=== PATIENT | male | born 1940 | race Caucasian/White ===

== ENCOUNTER 2017-08-10 18:56 | Inpatient (IN) | payer OTHER, BC ==
[2017-08-10] MEDS ORDERED: fentaNYL 100 MCG/2 ML INJ IVP ONE ×3 (19:03→22:00)
[2017-08-10] MEDS ORDERED: fentaNYL 100 MCG/2 ML INJ ONE ×2 (19:03→19:26)
--- NOTE | 2017-08-10 19:08 | CPEKG ---
Heart Rate: 85 RR Interval: 706 P-R Interval: 248 QRSD Interval: 126 QT Interval: 392 QTC Interval: 467 P Wilkeson: 72 QRS Wilkeson: -28 T Wave Wilkes[place]: 83 EKG Severity - ABNORMAL ECG - EKG Impression: SINUS RHYTHM EKG Impression: FIRST DEGREE AV BLOCK EKG Impression: PROBABLE LEFT ATRIAL ABNORMALITY EKG Impression: RBBB AND LAFB Electronically Signed By: Miguel Weller 10-Aug-2017 21:25:23
[2017-08-10] MEDS ORDERED: AMIODARONE HCL 150 MG/100 ML BAG (1.5 MG/ML) IV ONE ×2 (19:11→20:16)
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
[2017-08-10] MEDS ORDERED: AMIODARONE HCL 100 ML IV ONE (19:24)
[2017-08-10] MEDS ORDERED: MIDAZOLAM 2 MG/2 ML VIAL ONE (19:26)
[2017-08-10] MEDS ORDERED: LIDOCAINE 1% 300 MG/30 ML SDV ONE (19:26)
[2017-08-10] MEDS ORDERED: IOPAMIDOL (ISOVUE-370) 150 ML BTL IV ONE (19:26)
[2017-08-10] MEDS ORDERED: LORazepam 2 MG/ML INJ IVP ONE (19:32)
[2017-08-10 19:33] LABS: PLATELET COUNT 169 10^3/uL (150-400)
[2017-08-10] MEDS ORDERED: PROPOFOL/EMULSION 1,000 MG/100 ML BOTTLE IV ONE (19:34)
[2017-08-10] MEDS ORDERED: PROPOFOL/EMULSION 50 ML IV ONE (19:35)
[2017-08-10] MEDS ORDERED: VECURONIUM BROMIDE 10 MG VIAL IV ONE (19:35)
[2017-08-10] MEDS ORDERED: VECURONIUM BROMIDE 20 MG VIAL ONE (19:43)
[2017-08-10 19:44] LABS: INR 1.09 (0.83-1.16); PROTIME(PATIENT) 14.3 SEC (12.0-15.0)
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
[2017-08-10] MEDS ORDERED: AMIODARONE A.FIB-6HR INFSN (ORDER 2/3) PREMIX IV ONE (20:30)
[2017-08-10] MEDS ORDERED: PROPOFOL/EMULSION 100 ML IV SCH (20:30)
[2017-08-10] MEDS ORDERED: fentaNYL/NACL 100 ML IV SCH (20:30)
[2017-08-10] MEDS ORDERED: ONDANSETRON 4 MG/2 ML VIAL IVP PRN (21:32)
[2017-08-10] MEDS ORDERED: ATROPINE SULFATE 1 MG/10 ML SYR IVP PRN (21:32)
[2017-08-10] MEDS ORDERED: NS 1,000 ML IV SCH (21:45)
[2017-08-10] MEDS ORDERED: NOREPINEPHRINE 4MG/NS 500 ML IV PRN (22:00)
[2017-08-10] MEDS ORDERED: RN MUST ADD K & MAG PROT TO WORKLIST MISC ONE (22:00)
[2017-08-10] MEDS ORDERED: NS 250 ML IV PRN (22:00)
[2017-08-10] MEDS ORDERED: niCARdipine/NACL 200 ML IV PRN (22:00)
[2017-08-10] MEDS ORDERED: MIDAZOLAM 2 MG/2 ML VIAL IVP PRN (22:00)
[2017-08-10] MEDS ORDERED: NS 1,000 ML IV ONE (22:00)
[2017-08-10] MEDS ORDERED: MIDAZOLAM HCL 50 MG in D5W 50 ML IV PRN (22:00)
[2017-08-10 22:18] LABS: INR 1.1 (0.83-1.16); PROTIME(PATIENT) 14.4 SEC (12.0-15.0)
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
[2017-08-10 22:29] LABS: CREATINE KINASE 742 IU/L (0-224)
[2017-08-10] MEDS: PROPOFOL/EMULSION 100 ML IV SCH (22:30)
[2017-08-10] MEDS: fentaNYL/NACL 100 ML IV SCH (22:30)
[2017-08-10] MEDS: VECURONIUM BROMIDE 50 MG in D5W 50 ML IV SCH (22:31)
[2017-08-10] MEDS ORDERED: ERTAPENEM 1 GM VIAL IV SCH (23:15)
--- NOTE | 2017-08-10 23:36 | GCON ---
[f rep st] CONSULTATION PULMONARY/CRITICAL CARE CONSULTATION DATE OF CONSULTATION: 08/10/2017 REASON FOR CONSULTATION: Pnt-qa-xbxtqhvq cardiac arrest. HISTORY: The patient is a 77-year-old gentleman from [place]. He was in the [facility] region driving when he arrested. Bystander CPR was provided by 2 physicians, by report. The bonnie service arrived with an AED 20-30 minutes later. He was shocked with return of spontaneous circulation. He was transported by chopper to [facility] and taken to the [facility]. He was found to have multivessel coronary disease with a critical left main lesion and occlusion of the LAD. An intra-aortic balloon pump was placed. Ejection fraction was 50%. A HACA catheter was placed and he was returned to the intensive care unit on a ventilator with active cooling. He has been seen by Cardiovascular Surgery. The plan is to see how he does from a neurologic standpoint following the arrest and prolonged CPR. If he does well, then coronary artery bypass grafting will be considered. PAST MEDICAL HISTORY: Somewhat unknown. Hyperlipidemia was noted. He apparently had no history of prior known cardiac disease. MEDICATIONS: His only home medication apparently was a statin. DRUG ALLERGIES: Unknown at this time. SOCIAL HISTORY: , visiting from [place] with his and friends. He smoked cigarettes in the distant past, having quit in his 30s. FAMILY HISTORY: Unobtainable. REVIEW OF SYSTEMS: Unobtainable. PHYSICAL EXAMINATION: GENERAL: Reveals a large gentleman who is in the ICU. He is on the ventilator. An intra-aortic balloon pump has been placed at 1:1. He is actively cooling with a current core temperature of 35. VITAL SIGNS: His blood pressure by ART line is 135/60. He is not on any pressors. CVP is pending. He is on 60% FiO2 with saturations of 98%. Heart rate is 80 with sinus rhythm on the monitor. Occasional ventricular complexes are noted. HEENT : Remarkable for oral endotracheal tube and NG tube. Pupils are small, sluggish. There is some bloody drainage from the NG tube, presumably secondary to traumatic intubation or NG tube placement. CHEST: Reveals decreased breath sounds bilaterally. Breath sounds are coarse. There are no focal findings. HEART: Regular. Heart tones are distant. Intra-aortic balloon pump sounds are present. The anterior chest is somewhat erythematous, presumably secondary to resuscitation. ABDOMEN: Somewhat overweight, appears soft. Tenderness cannot be assessed. Bowel sounds are absent. : Oliva catheter is in place. He is making urine. LINES: There is a femoral ART line and the intra-aortic balloon pump as well as a cooling catheter, all in place. EXTREMITIES: Unremarkable for edema. NEUROLOGIC: Cannot be assessed. He has been paralyzed. LABORATORY STUDIES: Chest x-ray: Hypoventilatory changes are present. The aorta looks large. There are some patchy infiltrates bilaterally, possibly secondary to congestive heart failure. Pneumonitis/aspiration pneumonia cannot be excluded. Cardiac silhouette appears large. Lines and tubes are in appropriate position. White blood cell count is 14,000, hematocrit 48, platelets normal on admission. PT and PTT were normal, D-dimer elevated. The latest blood gas from the ART line shows a pH of 7.27, pCO2 47, and PO2 97 on 60% FiO2, 600 and a rate of 16. Sodium is 141, potassium 4.1, CO2 23, BUN 21 with creatinine 0.8. Glucose is 168. Calcium is 8.5, phosphorus 4.7, magnesium 2.0. Bilirubin is normal. AST is elevated at 114. CK is 742 with a negative CK-MB. Troponin is 1.6. ASSESSMENT: 1. Uia-gb-hadiqpqk cardiac arrest. Status post prolonged bystander cardiopulmonary resuscitation by physicians. Spontaneous circulation was returned with 1 shock. Presumably, this primarily represented an arrhythmic arrest as opposed to large primary myocardial infarction. Ejection fraction was 50% by report without significant focal wall motion abnormalities. 2. Possible anoxic injury. Secondary to #1. He is being treated with the Hypothermia After Cardiac Arrest (HACA) protocol. Mental status will not be able to be assessed until approximately 36 hours after cooling. Rewarming will start at 24 hours. 3. Acute respiratory failure secondary to arrest. Oxygenation on 60% FiO2 is adequate. PCO2 is high and minute ventilation will be increased and arterial blood gas followed. Sputum culture will be obtained. Ertapenem will be given for possible aspiration. 4. Metabolic: No acute issues identified. PLAN AND RECOMMENDATIONS: The patient will be supported in the intensive care unit. HACA protocol will be continued. Intra-aortic balloon pump support will be maintained. Appropriate ventilatory adjustments will be made and blood gas followed. Chest x-ray, blood gas and laboratory will all be followed per the HACA protocol. Paralytics and sedation will be maintained. Called in to see patient after hours. Over 1 hour of CC time spent directly with patient. Further plans and recommendations will be made based on his progress over the next 12-24 hours. Neurologic recovery cannot be estimated at this time. /[id number]/MODL MTDD
[2017-08-10] MEDS: ERTAPENEM 1 GM VIAL IV SCH (23:51)
--- NOTE | 2017-08-11 00:01 | PDDXCAT ---
Diagnostic Cath Note - . Date: 08/10/17 Tack Welder: Carlton Indication: other (Resuscitated ymt-pk-pqcqsbhg cardiac arrest with abnormal ECG in ER.) - Procedure Access: right groin Procedure: left heart catheterization, coronary angiography, left ventriculogram , other (Intra aortic balloon pump insertion and hypothermia catheter insertion. ) - Materials Left Heart Cath size: 6F Left Heart Cath materials: standard multipack (JL4, JR4, pigtail) - Findings-Left Heart Catheterization LM: Distal left main high-grade/subtotal stenosis. LAD: Totally occluded at its ostium and receives dbuxe-fn-nhcc collaterals. LCX: Proximal 70-80%; otherwise moderate irregularities involving principal bifurcated OM branch. RCA: Hazy, proximal, high-grade stenosis; otherwise moderate irregularities. LVEF: 55% Wall motion: No significant regional wall motion abnormalities. Complications: None Estimated blood loss: <50ml Assessment: 1) Status post dde-ok-odryjukl cardiac arrest. 2) Critical left main and multivessel CAD as described above. 3) Preserved left ventricular systolic function. Plan: He has left main and multi-vessel CAD which is not amenable to percutaneous revascularization. He does not appear to be having an ST segment elevation myocardial infarction. His presentation is primarily consistent with a ventricular arrhythmia producing cardiac arrest. He has been hemodynamically stable with intubation and intravenous amiodarone. He does not have any hemodynamic parameters suggestive of shock. Because of the severity of his left main and multivessel CAD, coronary bypass surgery would be the preferred modality for revascularization. However, significant questions remain regarding neurologic viability following his cardiac arrest. Prior to leaving the cardiac catheter builder, an intra-aortic balloon was inserted via the right femoral artery. The IABP is predominantly to enhance coronary perfusion. A hypothermia catheter was inserted into the IVC. Medical management, hemodynamic support, and Targeted Temperature Management will be continued. If his neurologic status improves, he will be considered for coronary bypass surgery. Patient Problems: Problems Problem Status Onset Cardiac arrest Acute
[2017-08-11] MEDS ORDERED: HEPARIN 10,000 UNIT/10 ML MDV (1,000 UNIT/ML) IVP PRN (00:48)
[2017-08-11] MEDS ORDERED: HEPARIN 10,000 UNIT/10 ML MDV (1,000 UNIT/ML) IVP ONE (00:48)
--- NOTE | 2017-08-11 01:09 | CPEKG ---
Heart Rate: 54 RR Interval: 1111 P-R Interval: 232 QRSD Interval: 116 QT Interval: 536 QTC Interval: 509 P Simon: 52 QRS Simon: -14 T Wave Simon: 57 EKG Severity - ABNORMAL ECG - EKG Impression: SINUS RHYTHM EKG Impression: FIRST DEGREE AV BLOCK EKG Impression: INCOMPLETE RIGHT BUNDLE BRANCH BLOCK Electronically Signed By: Bismark Wiseman 11-Aug-2017 11:20:50
[2017-08-11] MEDS: HEPARIN/DEXTROSE 500 ML IV SCH ×2 (01:30→15:24)
[2017-08-11] MEDS: AMIODARONE HCL 200 ML IV SCH ×4 (02:49→20:37)
[2017-08-11] MEDS: VECURONIUM BROMIDE 50 MG in D5W 50 ML IV SCH ×3 (02:49→16:16)
[2017-08-11 04:40] LABS: PLATELET COUNT 147 10^3/uL (150-400)
[2017-08-11] MEDS: PROPOFOL/EMULSION 100 ML IV SCH ×3 (06:09→20:10)
[2017-08-11] MEDS: POTASSIUM Cl (KCl) 50 ML IV SCH ×4 (07:15→18:55)
[2017-08-11] MEDS ORDERED: D5W 1,000 ML IV SCH (07:22)
[2017-08-11] MEDS ORDERED: D50W 25 GM/50 ML SYR IVP PRN (07:22)
[2017-08-11] MEDS: NS 1,000 ML IV SCH ×2 (07:28→21:57)
[2017-08-11] MEDS: PETROLAT,WHT/MIN OIL/SOD CHL 3.5 GM OPHT.OINT EACHEYE PRN ×3 (07:57→21:38)
[2017-08-11] MEDS: INSULIN REGULAR HUMAN 100 UNIT in NS 100 ML IV SCH (08:16)
[2017-08-11] MEDS: NOREPINEPHRINE BITARTRATE 4 MG in NS 500 ML IV PRN ×3 (08:32→23:16)
--- NOTE | 2017-08-11 08:34 | CPEKG ---
Heart Rate: 43 RR Interval: 1395 P-R Interval: 248 QRSD Interval: 126 QT Interval: 592 QTC Interval: 501 P Rydal: 0 QRS Rydal: -3 T Wave Rydal: 85 EKG Severity - ABNORMAL ECG - EKG Impression: SINUS BRADYCARDIA EKG Impression: FIRST DEGREE AV BLOCK EKG Impression: IVCD, CONSIDER ATYPICAL RBBB Electronically Signed By: Bismark Wiseman 11-Aug-2017 11:20:42
[2017-08-11] MEDS ORDERED: METOPROLOL TARTRATE 25 MG TAB PO SCH (09:00)
[2017-08-11] MEDS ORDERED: ASPIRIN EC 325 MG TAB PO SCH (09:00)
[2017-08-11] MEDS ORDERED: RN MUST ADD CA+ & PHOS PROTOCOL TO WORKLIST MISC SCH (09:00)
[2017-08-11] MEDS ORDERED: RN MUST REMOVE K+ & MG+ PROTOCOL FRM WORKLIST MISC SCH (09:00)
[2017-08-11 10:18] LABS: PLATELET COUNT 166 10^3/uL (150-400)
[2017-08-11] MEDS: FAMOTIDINE 20 MG/NACL 50 ML IV SCH ×2 (10:25→20:45)
[2017-08-11 10:27] LABS: INR 1.15 (0.83-1.16); PROTIME(PATIENT) 14.9 SEC (12.0-15.0)
--- NOTE | 2017-08-11 10:32 | HOSPPROG ---
Hospitalist Progress Note Assessment/Plan: Assessment: 77 yo M p/w acute hypoxic and hypercapnic respiratory failure, cardiogenic shock, acute encephalopathy 2/2 vue-oz-dtmkagmn cardiac arrest and Type I NSTEMI Plan: # NSTEMI. Type I, cardiac cath w/ severe MVD (LAD, RCA, LCx) and critical L main disease, trop 4.[address] depressions on presenting EKG, suspect that it resulted in cardiac arrhythmia and resultant cardiac arrest -d/w Dr. Lugo, LDL 65, will start statin, appreciate ongoing Cards consultation -cont w/ hep gtt, rectal ASA -hold on bblocker given bradycardia -with severe MVD, Dr. Chow has been consulted and will have a better impression as to whether CABG indicated after we assess neuro status s/p rewarming # Cardiac arrest. Out of hospital, likely 2/2 ventricular arrhythmia in setting of above, but no specific arrhythmia captured, s/p CPR -currently on HACA, continue, d/w family on team rounds -cont on amio gtt given likely contributing arrhythmia # Acute encephalopathy. Evidenced by global brain dysfunction characterized as unresponsiveness which occurred suddenly, likely 2/2 metabolic acidosis and hypoxia, persisted despite return of circulation, making anoxic brain injury possible -currently on HACA on Vec/Propofol/Fentanyl, once he is rewarmed we will perform neurologic assessments and have a better understanding of prognosis # Metabolic and respiratory acidosis. Acute, 2/2 hypoperfusion in setting of cardiogenic shock as well as carbon dioxide retention w/ pH 7.22 # Cardiogenic shock. Acute, 2/2 arrest, EF 55% but requiring levophed pressor support, intra-aortic balloon pump, albumin # Acute hypoxic and hypercapnic respiratory failure. Evidenced by PCO2 60 and PaO2 47 w/ pH 7.22, w/ respiratory arrest, intubated in the field, and ongoing vent support required # Acute atelectasis. Likely 2/2 prolonged down time, present on CXR, cont positive pressure # Hyperglycemia. No prior dx DM2, on insulin gtt -check A1c Diet. NPO PPx. High risk, on hep gtt Code. Full Dispo. ADD uncertain, remains critically ill. 35 minutes of critical care time at bedside w/ patient/, coordinating care w / Drs. Garcia/Parish, specifically addressing his cardiac arrest and resulting shock/resp failure rendering him critically ill w/ high risk worsening morbidity /mortality. Subjective: unresponsive Objective: Vital Signs Temp Pulse Resp BP Pulse Ox 33.1 C L 40 L 14 121/46 H 40 L 08/11/17 09:00 08/11/17 10:00 08/11/17 10:00 08/11/17 10:00 08/11/17 10:00 Microbiology 08/11/17 01:10 - Final Sputum, Induced/Suctioned Laboratory Results 08/11/17 10:00 08/10/17 08/11/17 08/12/17 05:59 05:59 05:59 Intake Total 2489.3 Output Total 1300 Balance 1189.3 PT 14.9 SEC (12.0-15.0) 08/11/17 10:00 INR 1.15 (0.83-1.16) 08/11/17 10:00 - Physical Exam Constitutional: no apparent distress, not in pain, No uncomfortable Eyes: other (constricted pupils, fixed centrally) Cardiovascular: bradycardia, other (loud IABP over chest and abd), No irregularly irregular, No edema Respiratory: no rales or rhonchi, clear to auscultation, inspiratory crackles, other (on vent) Gastrointestinal: No normoactive bowel sounds (hypoactive bowel sounds), No guarding, No distension Psychiatric: encephalopathic, other (unresponsive to tactile stimuli) ICD10 Worksheet Patient Problems: Problems Problem Status Onset chronic disease [facility]/transitional care Acute Cardiac arrest Acute
[2017-08-11] MEDS ORDERED: ALBUMIN 5% 500 ML IV ONE (10:59)
--- NOTE | 2017-08-11 11:03 | PDMN ---
Medical Necessity Medical necessity: est los>2mn for cardiac arrest w/CPR, AED, and intubation in the field, unresponsive, acute resp failure, possible aspiration event, and critical L main and multivessel CAD; required emergent cath, plan CABG if there is neurological recovery; per order and H&P 08/10/17
[2017-08-11] MEDS ORDERED: ALBUMIN 5% 500 ML BOTTLE IV ONE (11:04)
[2017-08-11] MEDS: fentaNYL/NACL 100 ML IV SCH (11:53)
--- NOTE | 2017-08-11 12:47 | ASMTCASEMG ---
Living Arrangements What is your living Answers: With Spouse arrangement? Who do you live with? Type Of Residence What kind of residence do Answers: House you live in? Type of Residence Facility Name Notes: Patient was visiting from [place]. He and his family were in [place] when patient had a cardiac arrest. He was brought to [facility] post cardiac arrest and HACA protocol was begun. Discharge Plan Comments Coordination Status Comments Notes: Patient is a 77yo male who was helicoptered from [place] to [facility] after a cardiac arrest. Paramedics restored spontaneous respiration with a single automatic external defibrillator. Patient was intubated on route. HACA protocol intiated here at [facility]. Patient is a candidate for coronary bypass surgery if he demonstrates reasonable neurologic salvage. No therapies ordered at this time. D/C plan TBD. CM will follow. Date Signed: 08/11/2017 12:47 PM Electronically Signed By:Collette Tolentino LCSW
--- NOTE | 2017-08-11 13:07 | PDCARPN ---
Cardiology Progress Note Assessment/Plan: Assessment: 1. Kwv-ee-xecicxvw cardiac arrest. 25 min of CPR prior to AED shock. Shock returned palpable pulse. Intubated approximately an hour and 10 min after onset of arrest. Arrived at [facility] approximately 2 hr after onset of the arrest. 2. Severe 3 vessel coronary disease as outlined above. 3. Preserved left ventricular function with LVEF 55% 4. Hoc up protocol and place 5. Intra-aortic balloon pump 1:1 Plan: -continue amiodarone drip -pressors support with Levophed currently at 9mcg/min -continue HACA protocol -continue intra-aortic balloon pump 1:1 -continue maximum medical support into neurologic assessment can be made upon rewarming from HACA protocol -patient would require coronary artery revascularization with CABG, Dr. Kebede is aware of patient and reviewed images -events of the last 24 hr have been reviewed in detail with patient's son. 08/11/17 13:10 Subjective: 77 year old gentleman who had a witnessed, loh-nn-dmruqqkd, ventricular tachycardia arrest at approximately 16 50 last evening. He received approximately 25 min of CPR prior to 80 ED arrival. He received a single shock returning a regular pulse. EMS arrived at approximately 1800. He was intubated on scene and flown to [facility]. He prior to admission, patient had no significant past medical history with exception hyperlipidemia. Medications statin aspirin therapy. Cardiac catheterization performed last evening demonstrated severe 3 vessel coronary disease with subtotal distal left main, occluded LAD at the ostium, 70- 80% proximal stenosis of the circumflex and high-grade proximal stenosis of the right coronary artery. Left ventricular function was preserved with LVEF of 55% . He was started on the HACA protocol. He remains on amiodarone drip. Remains in sinus bradycardia. No ventricular arrhythmias since his arrival to [facility]. Intra-aortic balloon pump at one-to-one. He remains hemodynamically stable. He is on pressor support. CT surgery has been consulted. Patient would require revascularization with CABG if he neurologically recovers. Discussed in detail with patient's son who is at his bedside. Reviewed/Discussed With: family, hospitalist, multidisciplinary team Objective: Vital Signs (8 Hrs) Temp Pulse Resp BP Pulse Ox 08/11/17 11:50 33.1 C L 40 L 14 100 05/04/18 11:00 33.1 C L 40 L 14 115/42 L 100 08/11/17 10:00 40 L 14 121/46 H 40 L 08/11/17 09:00 33.1 C L 42 L 14 107/43 L 100 08/11/17 08:30 33.1 C L 44 L 15 100 08/11/17 08:00 33.1 C L 45 L 14 110/62 100 08/11/17 07:00 33.1 C L 43 L 14 116/42 L 100 08/11/17 06:00 33.1 C L 46 L 14 136/51 H 100 08/11/17 05:30 33.1 C L 47 L 16 132/47 H 100 Intake/Output (24 Hrs) 08/10/17 08/11/17 08/12/17 05:59 05:59 05:59 Intake Total 2489.3 2022 Output Total 1300 750 Balance 1189.3 1272 Intake: Oral (ml) 0 IV Infused (ml) 2489.3 2022 Albumin 5% 500 ml @ As 500 Directed IV ONCE ONE Rx#: [id number] Amiodarone HCl 200 ml @ 310 204 33.3 mls/hr IV CONT GERALD Rx#:[id number] D5w 1,000 ml @ 25 mls/hr 91 IV CONT GERALD Rx#: [id number] Heparin/Dextrose 500 ml @ 161 196 Per Protocol IV CONT GERALD Rx#:[id number] Insulin Regular Human 100 5 unit In Ns 100 ml @ As Directed IV AD GERALD Rx#: [id number] Norepinephrine Bitartrate 346 364 4 mg In Ns 500 ml @ Per Protocol IV CONT PRN Rx#: [id number] Ns 1,000 ml @ 100 mls/hr 900 520 IV CONT GERALD Rx#: [id number] Propofol/Emulsion 100 ml 183 65 @ Per Protocol IV CONT GERALD Rx#:[id number] Vecuronium [place] 50 mg 50 40 In D5w 50 ml @ Per Protocol IV CONT GERALD Rx#: [id number] fentaNYL/NACL 100 ml @ 39.3 37 Per Protocol IV CONT GERALD Rx#:[id number] Output: Urine (ml) 1000 750 Catheter 850 750 Emesis (ml) 200 NG Tube Output (ml) 100 Large Bore (>12 Burmese) 100 Right Naris 16 Burmese Other: Weight 108.5 kg Number of Stools Catheter 1 Result Diagrams: 08/11/17 10:00 08/11/17 10:00 Cardiac Labs: Cardiac Lab Results (72 Hrs) 08/11/17 08/10/17 04:15 21:50 CK-MB (CK-2) Fraction 29.00 H Troponin I 4.700 H 1.640 H - Physical Exam Constitutional: other (Intubated, sedated) Cardiovascular: regular rate and rhythm, no murmurs, no rubs, no gallops Respiratory: clear to auscultate bilat (S) ICD10 Worksheet Patient Problems: Problems Problem Status Onset Cardiac arrest Acute chronic disease mgmt/transitional care Acute
--- NOTE | 2017-08-11 13:15 | PDINTPN ---
Hat Mender Progress Note Assessment/Plan: Assessment: Status post out of hospital cardiac arrest. Secondary to arrhythmia. On amiodarone. HACA protocol. Cooling started at approximately 2100 last night. Coronary artery disease, diffuse. On heparin and intra-aortic balloon pump. May need coronary artery bypass grafting if acceptable neurologic outcome occurs. Possible anoxic injury, secondary to 1. We will not know until after rewarming has been accomplished: Mid day tomorrow at the earliest. Respiratory failure: On ventilator, paralyzed. Will adjust settings based on blood gas results as we go along. Possible aspiration. On Invanz. Metabolic: Hyperglycemic, on insulin drip, otherwise no issues identified. Prophylaxis: Famotidine, on heparin Plan - Ventilatory support, the HACA protocol, active cooling, and the intra- aortic balloon pump will all be continued. Follow laboratory per protocol. Follow chest x-ray, blood gas. Continue vecuronium and sedation. Further plans recommendations will be made based on his progress over the next 12-24 hours. Over 1 hr of critical care time spent directly with the patient. Discussed issues with the patient's and son. Discussed with nursing, respiratory, hospitalist, Cardiology, and the ICU multi disciplinary team. Subjective: Paralyzed, sedated, on the ventilator/IABP/cooling catheter Objective: Vital Signs Temp Pulse Resp BP Pulse Ox 33.1 C L 40 L 14 115/42 L 100 08/11/17 11:50 08/11/17 11:50 08/11/17 11:50 08/11/17 11:00 08/11/17 11:50 Microbiology 08/11/17 01:10 - Final Sputum, Induced/Suctioned Laboratory Results 08/11/17 10:00 08/11/17 10:00 08/10/17 08/11/17 08/12/17 05:59 05:59 05:59 Intake Total 2489.3 2022 Output Total 1300 750 Balance 1189.3 1272 PT 14.9 SEC (12.0-15.0) 08/11/17 10:00 INR 1.15 (0.83-1.16) 08/11/17 10:00 Laboratory Tests 08/11/17 08/11/17 08/11/17 07:10 10:00 10:00 PT 14.9 INR 1.15 APTT 175.3 H* D Heparin Anti-Xa, Unfract 0.90 H* pCO2 30 L pO2 97 H ABG pH 7.42 ABG O2 Saturation 98 H Actual Respiration Rate 14 SIMV YES Tidal Volume 650 Calcium Magnesium Total Bilirubin ALT Albumin 08/11/17 10:00 PT INR APTT Heparin Anti-Xa, Unfract pCO2 pO2 ABG pH ABG O2 Saturation Actual Respiration Rate SIMV Tidal Volume Calcium 8.1 L Magnesium 1.9 Total Bilirubin 1.0 ALT 82 H Albumin 3.3 L CXR: No focal infiltrates. Some atelectasis at the bases. Lines and tubes in adequate position Physical Exam - Physical Exam General Appearance: unresponsive, No thin (Large male) EENT: PERRL/EOMI (Small, sluggish), ET tube, other (NG tube in place), No scleral icterus (R), No scleral icterus (L) Neck: normal inspection (No obvious jugular venous distention but large neck.) Respiratory: lungs clear (Anteriorly), decreased breath sounds (At bases, coarse ), No rales, No rhonchi Cardiac/Chest: regular rate, rhythm, other (Intra-aortic balloon pump in place. Distant heart tones) Abdomen: soft, No normal bowel sounds (Decreased, few present), No non-tender ( Can't assess) Male Genitalia: other (Oliva catheter in place, input greater than output by about 2 L since admission) Skin: normal color, warm/dry Extremities: No pedal edema Neuro/Psych: cognition abnormalities (Can't assess), No no motor/sensory deficits (Can't assess) ICD10 Worksheet Patient Problems: Problems Problem Status Onset chronic disease [facility]/transitional care Acute Cardiac arrest Acute
[2017-08-11 13:49] LABS: CREATINE KINASE 1115 IU/L (0-224)
[2017-08-11] MEDS: METOPROLOL TARTRATE 25 MG TAB PO SCH (20:43)
[2017-08-11] MEDS: ORAL BALANCE GEL TUBE PO PRN (21:38)
[2017-08-11 22:26] LABS: INR 1.18 (0.83-1.16); PROTIME(PATIENT) 15.2 SEC (12.0-15.0)
[2017-08-11 22:56] LABS: PLATELET COUNT 131 10^3/uL (150-400)
[2017-08-11] MEDS: ERTAPENEM 1 GM VIAL IV SCH (23:10)
[2017-08-12] MEDS: VECURONIUM BROMIDE 50 MG in D5W 50 ML IV SCH (01:32)
[2017-08-12] MEDS: AMIODARONE HCL 200 ML IV SCH ×4 (02:41→21:12)
[2017-08-12] MEDS: PROPOFOL/EMULSION 100 ML IV SCH ×4 (03:50→22:30)
--- NOTE | 2017-08-12 04:46 | CPEKG ---
Heart Rate: 45 RR Interval: 1333 P-R Interval: 260 QRSD Interval: 120 QT Interval: 600 QTC Interval: 520 P [place]: 71 QRS [place]: -18 T Wave [place]: 106 EKG Severity - ABNORMAL ECG - EKG Impression: SINUS BRADYCARDIA EKG Impression: FIRST DEGREE AV BLOCK EKG Impression: NONSPECIFIC INTRAVENTRICULAR CONDUCTION DELAY Electronically Signed By: Bismark Wiseman 12-Aug-2017 06:45:14
[2017-08-12] MEDS: NOREPINEPHRINE BITARTRATE 4 MG in NS 500 ML IV PRN (05:13)
[2017-08-12] MEDS ORDERED: POTASSIUM Cl (KCl) 50 ML IV ONE ×2 (06:00→22:58)
[2017-08-12] MEDS: PETROLAT,WHT/MIN OIL/SOD CHL 3.5 GM OPHT.OINT EACHEYE PRN (07:31)
[2017-08-12] MEDS: METOPROLOL TARTRATE 25 MG TAB PO SCH ×2 (07:49→20:23)
[2017-08-12] MEDS: ASPIRIN RECTAL 300 MG SUPP PR SCH (08:45)
[2017-08-12] MEDS: FAMOTIDINE 20 MG/NACL 50 ML IV SCH (08:45)
--- NOTE | 2017-08-12 09:06 | PDCARPN ---
Cardiology Progress Note Chief Complaint: OOH cardiac arrest Assessment/Plan: Assessment: 1. OOH cardiac arrest, prompt CPR by MDs at [facility], defibrillation for VT 2. 3V CAD with subtotal left main disease 3. Pressor support + IABP for coronary perfusion Plan: Rewarming from HACA over course of day today. Will assess neuro function post HACA. If neuro intact, needs CABG, Dr. Chow aware Continue norepinephrine drip as needed for cerebral perfusion, wean off quickly post HACA as tolerated. IABP 1:1 to remain until CABG Continue amiodarone Holding BB due to hemodynamics at this time. 08/12/17 09:04 Subjective: and friends + RN at bedside. Patient sedated/paralysed being rewarmed Reviewed/Discussed With: family, other (RN) Time Spent With Patient: 15 min Objective: Vital Signs (8 Hrs) Temp Pulse Resp BP Pulse Ox 08/12/17 08:00 35.1 C L 67 14 132/48 H 98 08/12/17 06:25 139/48 H 08/12/17 06:00 34.7 C L 45 L 14 123/39 H 99 08/12/17 05:00 34.4 C L 45 L 14 128/39 H 98 08/12/17 04:00 34.4 C L 46 L 14 115/41 L 100 08/12/17 03:45 64 14 98 08/12/17 03:29 65 170/65 H 08/12/17 03:00 34.1 C L 42 L 14 125/42 H 99 08/12/17 02:28 103/39 L 08/12/17 02:00 33.9 C L 42 L 14 130/41 H 98 Intake/Output (24 Hrs) 08/10/17 08/11/17 08/12/17 11:59 11:59 11:59 Intake Total 2489.3 6734 Output Total 1300 2225 Balance 1189.3 4509 Intake: Oral (ml) 0 IV Infused (ml) 2489.3 6734 Albumin 5% 500 ml @ As 500 Directed IV ONCE ONE Rx#: [id number] Amiodarone HCl 200 ml @ 310 795 33.3 mls/hr IV CONT GERALD Rx#:[id number] D5w 1,000 ml @ 25 mls/hr 534 IV CONT GERALD Rx#: [id number] Heparin/Dextrose 500 ml @ 161 672 Per Protocol IV CONT GERALD Rx#:[id number] Insulin Regular Human 100 21 unit In Ns 100 ml @ As Directed IV AD GERALD Rx#: [id number] Norepinephrine Bitartrate 346 1831 4 mg In Ns 500 ml @ Per Protocol IV CONT PRN Rx#: [id number] Ns 1,000 ml @ 100 mls/hr 900 1762 IV CONT GERALD Rx#: [id number] Propofol/Emulsion 100 ml 183 298 @ Per Protocol IV CONT GERALD Rx#:[id number] Vecuronium [place] 50 mg 50 157 In D5w 50 ml @ Per Protocol IV CONT GERALD Rx#: [id number] fentaNYL/NACL 100 ml @ 39.3 164 Per Protocol IV CONT GERALD Rx#:[id number] Output: Urine (ml) 1000 2025 Catheter 850 2025 Emesis (ml) 200 NG Tube Output (ml) 100 200 Large Bore (>12 Maltese) 100 200 Right Naris 16 Maltese Other: Weight 108.5 kg Number of Stools Catheter 1 Result Diagrams: 08/12/17 04:04 08/12/17 04:04 Cardiac Labs: Cardiac Lab Results (72 Hrs) 08/11/17 08/11/17 08/10/17 13:25 04:15 21:50 CK-MB (CK-2) Fraction 65.50 H 29.00 H Troponin I 2.960 H 4.700 H 1.640 H Telemetry: Sinus bradycardia, prolonged QT interval ICD10 Worksheet Patient Problems: Problems Problem Status Onset chronic disease mgmt/transitional care Acute Cardiac arrest Acute
[2017-08-12] MEDS: NOREPINEPHRINE BITARTRATE 16 MG in NS 250 ML IV SCH ×2 (09:29→20:38)
[2017-08-12 10:28] LABS: INR 1.19 (0.83-1.16); PROTIME(PATIENT) 15.3 SEC (12.0-15.0)
[2017-08-12] MEDS: HEPARIN/DEXTROSE 500 ML IV SCH (10:55)
[2017-08-12 11:16] LABS: PLATELET COUNT 109 10^3/uL (150-400)
[2017-08-12] MEDS: PANTOPRAZOLE SODIUM 40 MG VIAL IVP SCH ×2 (11:36→20:24)
[2017-08-12] MEDS ORDERED: FUROSEMIDE 40 MG/4 ML VIAL IVP ONE (12:58)
[2017-08-12] MEDS ORDERED: NITROGLYCERIN/DEXTROSE 250 ML IV SCH (13:00)
--- NOTE | 2017-08-12 13:02 | PDINTPN ---
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 Secondary to arrhythmia in the setting of underlying coronary artery disease. On amiodarone. HACA protocol. Actively warming since last night. Close to our target temperature of 36.5. Coronary artery disease, diffuse. On heparin and intra-aortic balloon pump. May need coronary artery bypass grafting if acceptable neurologic outcome occurs. Possible anoxic injury, secondary to 1. We will not know until after rewarming has been accomplished: Will turn off Jenn [place] comma propofol and Versed once re-warmed. It may take 6-24 hours for him to clear these medications so the we can assess his mental status per. Respiratory failure: On ventilator, paralyzed and sedated currently. Possible aspiration. On Invanz. Metabolic: Hyperglycemic, off insulin drip this morning. Prophylaxis: Famotidine, on heparin Plan - Continue Ventilatory support, continue HACA. Close to rewarming target and stopping protocol. Intra-aortic balloon pump will all be continued. Follow laboratory per protocol. Follow chest x-ray, blood gas. Further plans recommendations will be made based on his progress over the next 12-24 hours. 55 min of critical care time spent directly with the patient. Discussed issues with the patient's family, nursing, respiratory, hospitalist, and the ICU multi disciplinary team. Addendum: In afternoon as sedation decreased he started to wake up and was following simple commands, responding yes/no. For CABG in AM. Subjective: Sedated, paralyzed, on ventilator, IABP, rewarming Objective: Vital Signs Temp Pulse Resp BP Pulse Ox 35.9 C L 70 15 150/50 H 97 08/12/17 12:00 08/12/17 12:00 08/12/17 12:00 08/12/17 12:00 08/12/17 12:00 Microbiology 08/11/17 01:10 - Final Sputum, Induced/Suctioned Laboratory Results 08/12/17 09:55 08/12/17 09:55 08/11/17 08/12/17 08/13/17 05:59 05:59 05:59 Intake Total 2489.3 6734 Output Total 1300 2225 Balance 1189.3 4509 PT 15.3 SEC (12.0-15.0) H 08/12/17 09:55 INR 1.19 (0.83-1.16) H 08/12/17 09:55 Laboratory Tests 08/12/17 08/12/17 08/12/17 09:55 09:55 09:55 PT 15.3 H INR 1.19 H APTT 95.1 H D pCO2 33 L pO2 95 H ABG pH 7.41 ABG O2 Saturation 98 H O2 Concentration % 40 Respiration Rate 14 Tidal Volume 650 Calcium 7.4 L Ionized Calcium 1.07 L Magnesium 1.7 Total Bilirubin 0.8 AST 80 H ALT 68 CXR: Increased opacification/atelectasis of the left lower lobe and possible pleural effusion. Lines and tubes in good position. Physical Exam - Physical Exam General Appearance: unresponsive, other (Sedated, paralyzed) EENT: PERRL/EOMI (Small comma sluggish), ET tube, other (NG tube to suction) Neck: normal inspection (Large neck. CVP 9) Respiratory: lungs clear (Anteriorly), decreased breath sounds (At the bases), No rhonchi, No wheezing Cardiac/Chest: regular rate, rhythm, other (Distant heart tones) Abdomen: non-tender, soft, No normal bowel sounds (Decreased) Male Genitalia: other (Oliva catheter in place, adequate urine output but input significantly greater than output over the last 24 hr.) Skin: normal color, warm/dry Extremities: No pedal edema Neuro/Psych: cognition abnormalities (Can't assess), No no motor/sensory deficits (Can't assess) ICD10 Worksheet Patient Problems: Problems Problem Status Onset Cardiac arrest Acute chronic disease [facility]/transitional care Acute
--- NOTE | 2017-08-12 13:19 | PDINTPN ---
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 Secondary to arrhythmia in the setting of underlying coronary artery disease. On amiodarone. HACA protocol. Actively warming since last night. Close to our target temperature of 36.5. Coronary artery disease, diffuse. On heparin and intra-aortic balloon pump. May need coronary artery bypass grafting if acceptable neurologic outcome occurs. Possible anoxic injury, secondary to 1. We will not know until after rewarming has been accomplished: Will turn off Jenn [place] comma propofol and Versed once re-warmed. It may take up to 24 hours for him to clear these medications so the we can assess his mental status. Respiratory failure: On ventilator, paralyzed and sedated currently. Possible aspiration. On Invanz. Metabolic: Hyperglycemic, off insulin drip this morning. Prophylaxis: Famotidine, on heparin Plan - Continue Ventilatory support, continue HACA. Close to rewarming target and stopping protocol. Intra-aortic balloon pump will all be continued. Follow laboratory per protocol. Reassess laboratory and electrolytes in rewarming. Follow lab, chest x-ray, blood gas. Follow neurologic status post rewarming. Consider Neurology consultation tomorrow if indicated. Further plans recommendations will be made based on his progress over the next 12-24 hours. 55 min of critical care time spent directly with the patient. Discussed issues with the patient's family, nursing, respiratory, hospitalist, and the ICU multi disciplinary team. Objective: Vital Signs Temp Pulse Resp BP Pulse Ox 36.1 C 78 15 175/61 H 96 08/12/17 13:00 08/12/17 13:00 08/12/17 13:00 08/12/17 13:00 08/12/17 13:00 Microbiology 08/11/17 01:10 - Final Sputum, Induced/Suctioned Laboratory Results 08/12/17 09:55 08/12/17 09:55 08/11/17 08/12/17 08/13/17 05:59 05:59 05:59 Intake Total 2489.3 6734 Output Total 1300 2225 275 Balance 1189.3 4509 -275 PT 15.3 SEC (12.0-15.0) H 08/12/17 09:55 INR 1.19 (0.83-1.16) H 08/12/17 09:55 ICD10 Worksheet Patient Problems: Problems Problem Status Onset Cardiac arrest Acute chronic disease mgmt/transitional care Acute
[2017-08-12] MEDS ORDERED: POTASSIUM Cl (KCl) 100 ML IV SCH (14:30)
--- NOTE | 2017-08-12 14:34 | HOSPPROG ---
Hospitalist Progress Note Assessment/Plan: Assessment: 77 yo M p/w acute hypoxic and hypercapnic respiratory failure, cardiogenic shock, acute encephalopathy 2/2 [id number] cardiac arrest and Type I NSTEMI Plan: # NSTEMI. Type I, cardiac cath w/ severe MVD (LAD, RCA, LCx) and critical L main disease, trop 4.[address] depressions on presenting EKG, suspect that it resulted in cardiac arrhythmia and resultant cardiac arrest -LDL 65, will start statin, appreciate ongoing Cards consultation -cont w/ hep gtt, rectal ASA -hold on bblocker given bradycardia -with severe MVD, Dr. Chow has been consulted and will have a better impression as to whether CABG indicated after we assess neuro status s/p rewarming # Cardiac arrest. Out of hospital, likely 2/2 ventricular arrhythmia in setting of above, but no specific arrhythmia captured, s/p CPR -currently on HACA, currently rewarming -cont on amio gtt given likely contributing arrhythmia -counseled family regarding plan and anticipated course # Acute encephalopathy. Evidenced by global brain dysfunction characterized as unresponsiveness which occurred suddenly, likely 2/2 metabolic acidosis and hypoxia, persisted despite return of circulation, making anoxic brain injury possible -currently on HACA on Vec/Propofol/Fentanyl, once he is rewarmed we will perform neurologic assessments and have a better understanding of prognosis # Metabolic and respiratory acidosis. Acute, 2/2 hypoperfusion in setting of cardiogenic shock as well as carbon dioxide retention w/ pH 7.22 # Cardiogenic shock. Acute, 2/2 arrest, EF 55% but required levophed pressor support, intra-aortic balloon pump, albumin # Acute hypoxic and hypercapnic respiratory failure. Evidenced by PCO2 60 and PaO2 47 w/ pH 7.22, w/ respiratory arrest, intubated in the field, and ongoing vent support required # Acute diastolic CHF exacerbation. New pleural effusions on CXR (personally interpreted) likely 2/2 volume resuscitation required for above, net positive 4.5L o/n -stopped IVF except those needed for gtt -replete K w/ 20mEq this afternoon + 40mg IV lasix -needs to get net neg, which will help facilitate extubation # Acute atelectasis. Likely 2/2 prolonged down time, present on CXR, cont positive pressure # Hyperglycemia. No prior dx DM2, on insulin gtt intermittently -A1c pending Diet. NPO PPx. High risk, on hep gtt Code. Full Dispo. ADD uncertain, remains critically ill. 40 minutes of critical care time at bedside w/ patient//son/daughter, coordinating care w/ Drs. Garcia, specifically addressing his cardiac arrest and resulting shock/resp failure rendering him critically ill w/ high risk worsening morbidity/mortality. Subjective: intubated, sedated Objective: Vital Signs Temp Pulse Resp BP Pulse Ox 36.3 C 62 15 100/38 L 92 08/12/17 14:00 08/12/17 14:00 08/12/17 14:00 08/12/17 14:00 08/12/17 14:00 Microbiology 08/11/17 01:10 - Final Sputum, Induced/Suctioned Laboratory Results 08/12/17 09:55 08/12/17 13:54 08/11/17 08/12/17 08/13/17 05:59 05:59 05:59 Intake Total 2489.3 6734 Output Total 1300 2225 275 Balance 1189.3 4509 -275 PT 15.3 SEC (12.0-15.0) H 08/12/17 09:55 INR 1.19 (0.83-1.16) H 08/12/17 09:55 - Physical Exam Constitutional: no apparent distress, not in pain, uncomfortable Eyes: other (constricted pupils, reactive, fixed centrally) Cardiovascular: other (IABP loud), No tachycardia, No edema Respiratory: reduced air movement (bilat bases), inspiratory crackles (bilat bases), other (on vent), No expiratory wheeze, No bronchial breath sounds Gastrointestinal: No normoactive bowel sounds (hypoactive bowel sounds), No guarding, No distension Psychiatric: encephalopathic ICD10 Worksheet Patient Problems: Problems Problem Status Onset chronic disease mgmt/transitional care Acute Cardiac arrest Acute
[2017-08-12] MEDS: POTASSIUM Cl (KCl) 10 MEQ in NS 100 ML IV SCH ×2 (14:38→15:37)
[2017-08-12] MEDS ORDERED: PROTOCOL POTASSIUM 1 DOSE MISC PRN (15:30)
[2017-08-12] MEDS ORDERED: PROTOCOL CALCIUM 1 DOSE IV PRN (15:30)
[2017-08-12] MEDS ORDERED: PROTOCOL MAGNESIUM 1 DOSE IV PRN (15:30)
[2017-08-12] MEDS ORDERED: PROTOCOL K PHOSPHATE 1 DOSE IV PRN (15:30)
[2017-08-12] MEDS ORDERED: CALCIUM GLUCONATE 50 ML IV ONE ×2 (17:00→23:33)
[2017-08-12] MEDS ORDERED: MAGNESIUM SULF 1 GM/DEXTROSE 100 ML IV ONE ×2 (17:00→23:31)
[2017-08-12] MEDS: MUPIROCIN 2% 22 GM OINT NS SCH (20:24)
[2017-08-12] MEDS ORDERED: CHLORHEXIDINE GLUC HIBICLENS 118 ML BTL TP SCH (21:00)
[2017-08-12 22:31] LABS: PLATELET COUNT 145 10^3/uL (150-400)
[2017-08-12 22:37] LABS: INR 1.09 (0.83-1.16); PROTIME(PATIENT) 14.3 SEC (12.0-15.0)
[2017-08-12] MEDS ORDERED: LORazepam 2 MG/ML INJ ONE (22:43)
[2017-08-12] MEDS ORDERED: ALBUMIN 5% 500 ML IV PRN (22:50)
[2017-08-12] MEDS: LORazepam 2 MG/ML INJ IV PRN (22:53)
[2017-08-12] MEDS: ERTAPENEM 1 GM VIAL IV SCH (23:02)
[2017-08-13] MEDS: PROPOFOL/EMULSION 100 ML IV SCH ×2 (02:29→05:44)
[2017-08-13] MEDS: AMIODARONE HCL 200 ML IV SCH ×3 (03:23→20:30)
[2017-08-13] MEDS: LORazepam 2 MG/ML INJ IV PRN ×2 (04:43→21:04)
--- NOTE | 2017-08-13 04:45 | CPEKG ---
Heart Rate: 66 RR Interval: 909 P-R Interval: 232 QRSD Interval: 116 QT Interval: 520 QTC Interval: 545 P [place]: 10 QRS [place]: -50 T Wave [place]: 88 EKG Severity - ABNORMAL ECG - EKG Impression: SINUS RHYTHM EKG Impression: FIRST DEGREE AV BLOCK EKG Impression: NONSPECIFIC IVCD WITH LAD EKG Impression: prolonged qt interval Electronically Signed By: Shakir Reynoso 13-Aug-2017 19:34:31
[2017-08-13] MEDS: HEPARIN/DEXTROSE 500 ML IV SCH (05:44)
[2017-08-13] MEDS ORDERED: CALCIUM GLUCONATE 50 ML IV ONE (05:50)
[2017-08-13] MEDS ORDERED: SODIUM BICARBONATE 20 MEQ, LIDOCAINE 1% 10 ML in NORMOSOL-R 1,000 ML MISC ONE (06:00)
[2017-08-13] MEDS ORDERED: CITRATE DEXTROSE SOLN 500 ML BAG MISC ONE (06:00)
[2017-08-13] MEDS ORDERED: AMINOCAPROIC ACID 5 GM/20 ML VIAL IV ONE (06:00)
[2017-08-13] MEDS ORDERED: VERAPAMIL 5 MG, NITROGLYCERIN 2.5 MG, HEPARIN 500 UNIT, SODIUM BICARBONATE 0.2 MEQ in L... MISC ONE (06:00)
[2017-08-13] MEDS ORDERED: MANNITOL 25% 12.5 GM/50 ML VIAL IVP ONE (06:00)
[2017-08-13] MEDS ORDERED: PHENYLEPHRINE HCL 50 MG in NS 250 ML IV ONE (06:00)
[2017-08-13] MEDS ORDERED: POTASSIUM Cl (KCl) 50 ML IV ONE (06:12)
[2017-08-13] MEDS ORDERED: CALCIUM CHLORIDE 1 GM/10 ML INJ ONE ×2 (07:07→07:09)
[2017-08-13] MEDS ORDERED: MILRINONE/DEXTROSE/100 ML BAG IV ONE (07:07)
[2017-08-13] MEDS ORDERED: PROTAMINE SULFATE 50 MG/5 ML VIAL IVP ONE (07:07)
[2017-08-13] MEDS ORDERED: niCARdipine/NACL/200 ML BAG IV ONE (07:08)
[2017-08-13] MEDS ORDERED: DOPamine/DEXTROSE/250 ML BAG IV ONE (07:08)
[2017-08-13] MEDS ORDERED: HEPARIN 10,000 UNIT/10 ML MDV (1,000 UNIT/ML) ONE ×2 (07:08→07:10)
[2017-08-13] MEDS ORDERED: NA BICARBONATE 50 MEQ/50 ML VIAL ONE (07:08)
[2017-08-13] MEDS ORDERED: ALBUMIN 5% 250 ML BOTTLE IV ONE ×2 (07:09→12:05)
[2017-08-13] MEDS ORDERED: ceFAZolin 1 GM VIAL ONE (07:09)
[2017-08-13] MEDS ORDERED: ADENOSINE 6 MG/2 ML VIAL ONE (07:09)
[2017-08-13] MEDS ORDERED: AMIODARONE HCL 150 MG/3 ML VIAL ONE ×2 (07:09→07:10)
[2017-08-13] MEDS ORDERED: MAGNESIUM SULFATE 1 GM/2 ML VIAL ONE (07:10)
[2017-08-13] MEDS ORDERED: LIDOCAINE 2% 100 MG/5 ML SYR ONE ×2 (07:10→08:06)
[2017-08-13] MEDS ORDERED: CITRATE DEXTROSE SOLN 500 ML BAG ONE (07:10)
[2017-08-13] MEDS ORDERED: methylPREDNISolone SOD SUCC 1 GM/8 ML VIAL ONE (07:10)
[2017-08-13] MEDS ORDERED: MINERAL OIL 10 ML VIAL ONE (07:11)
[2017-08-13] MEDS ORDERED: PAPAVERINE HCL 60 MG/2 ML SDV ONE (07:12)
[2017-08-13] MEDS ORDERED: VERAPAMIL 5 MG/2 ML VIAL ONE (07:12)
[2017-08-13] MEDS ORDERED: PROPOFOL/EMULSION 500 MG/50 ML BOTTLE IV ONE ×2 (08:04→11:46)
[2017-08-13] MEDS ORDERED: fentaNYL 250 MCG/5 ML INJ ONE (08:04)
[2017-08-13] MEDS ORDERED: PHENYLEPHRINE HCL 100 MCG/ML SYR ONE (08:06)
[2017-08-13] MEDS ORDERED: ROCURONIUM 100 MG/10 ML VIAL ONE (08:06)
[2017-08-13] MEDS ORDERED: epHEDrine SULFATE 10 MG/ML SYR ONE ×2 (08:06)
[2017-08-13] MEDS ORDERED: ONDANSETRON 4 MG/2 ML VIAL ONE (08:06)
[2017-08-13] MEDS ORDERED: DEXAMETHASONE 4 MG/ML VIAL ONE ×2 (08:06)
--- NOTE | 2017-08-13 09:49 | PDANEPAE ---
ANE History of Present Illness 3v CAD s/f CABG x5 s/p v-fib arrest, CPR x 25 min, AED shock x1, HACA protocol x48 hours. Showed return of neurologic activity yesterday. Resedated now. ANE Past Medical History - Cardiovascular History Hx Hypertension: Yes Hx Arrhythmias: Yes Hx Chest Pain: Yes Hx Coronary Artery / Peripheral Vascular Disease: Yes Hx Palpitations: Yes - Pulmonary History Hx Oxygen in Use at Home: No Hx Sleep Apnea: Yes Sleep Apnea Screening Result - Last Documented: Positive Pulmonary History Comment: ? aspiration Pna - Endocrine History Hx Diabetes: No - Chronic Pain History Chronic Pain: No ANE Review of Systems Review of Systems: - Exercise capacity METS (RN): 4 METS ANE Patient History - Allergies Allergies/Adverse Reactions: No Allergies Allergy (Verified 08/11/17 01:31) No Known Drug Allergies Allergy (Verified 08/11/17 01:31) - Home Medications Home medications: home medication list seen and reviewed Home Medications: Aspirin EC [Aspirin EC 81 mg (*)] 81 mg PO DAILY 08/11/17 [Last Taken Unknown] Multivitamin (*) 1 tab PO DAILY 08/11/17 [Last Taken Unknown] Simvastatin [Simvastatin] 20 mg PO DAILY 08/11/17 [Last Taken Unknown] - NPO status NPO Status: no food or drink >8 hours NPO Since - Liquids (Date): 08/10/17 NPO Since - Liquids (Time): 16:00 NPO Since - Solids (Date): 08/10/17 NPO Since - Solids (Time): 16:00 - Anes Hx Anes Hx: no prior problems - Smoking Hx Smoking Status: Former smoker - Alcohol Use Alcohol Use: Rarely ANE Labs/Vital Signs - Labs Result Diagrams: 08/12/17 22:20 08/13/17 04:50 - Vital Signs Blood Pressure: 110/40 Heart Rate: 55 Respiratory Rate: 14 O2 Sat (%): 98 Height: 182.88 cm Weight: 114 kg ANE Physical Exam - Airway Mallampati Score: Unable to assesss (existing ETT 24 cm at teeth) ANE Anesthesia Plan Anesthesia Plan: general endotracheal anesthesia Lines/Monitors: central line Urgent/Emergent Case: James batista completed preop but documented later for safe timely pt care
[2017-08-13] MEDS ORDERED: MAGNESIUM SULF 2 GM/WATER 50 ML BAG IV ONE (12:05)
[2017-08-13] MEDS ORDERED: MAGNESIUM SULF 2 GM/WATER 50 ML IV ONE (12:59)
[2017-08-13] MEDS ORDERED: MEPERIDINE 25 MG/0.5 ML AMP IVP PRN (12:59)
[2017-08-13] MEDS ORDERED: BISACODYL 10 MG SUPP PR PRN (12:59)
[2017-08-13] MEDS ORDERED: NS 1,000 ML IV SCH (13:00)
--- NOTE | 2017-08-13 13:28 | GOP ---
[f rep st] OPERATIVE REPORT DATE OF OPERATION: 08/12/2017 SURGEON: Don Chow DO SENIOR MANUFACTURING TECHNICIAN: Amelia Chaudhari PA-C. ANESTHESIA: Henrique Shay MD. PREOPERATIVE DIAGNOSIS: 1. Cardiogenic arrest out of hospital with extended cardiopulmonary resuscitation and HACA protocol. 2. Extensive 3-vessel coronary artery disease. POSTOPERATIVE DIAGNOSIS: 1. Cardiogenic arrest out of hospital with extended cardiopulmonary resuscitation and HACA protocol. 2. Extensive 3-vessel coronary artery disease. 3. Evidence of significant anterior chest wall and sternal fracture. PROCEDURE PERFORMED: 1. Emergent coronary artery bypass grafting x6 with left internal mammary artery to the left anterio r descending, saphenous vein graft to the diagonal, ramus, obtuse marginal 1, sequential obtuse philippe nal 2, and posterior descending artery. 2. AtriClip to the left atrial appendage. 3. Endoscopic vein harvest. FINDINGS: This gentleman presented by helicopter after having a witnessed arrest with CPR initiated by his family and subsequently by first responders. He had an extensive period of CPR, was intubated in the field, transferred by air ambulance after cardioversion, remaining in sinus rhythm. He under went emergent diagnostic left heart catheterization, which showed critical left main stenosis and hig h-grade proximal right coronary artery stenosis. He was intubated and sedated, and neuro status was uncertain. He underwent HACA protocol, and upon withdrawal of the HACA protocol, it was felt that hi s neuro status was intact. His family was consented for surgery. DESCRIPTION OF PROCEDURE: He was taken emergently to the operating room, intubated from the ICU. Mo nitoring lines were placed. He was prepped and draped in sterile classical manner. Sternotomy was p erformed. He was found to have massive chest wall trauma with fractures on both sides and a midstern al fracture as well from CPR. Vein was harvested from the left leg by ETELVINA Serrato, who certified surgical first assistant ed throughout the procedure. Mammary was harvested with some difficulty due to the massive edema and chest wall injury. However, it was a good quality 3 mm vessel with excellent flow. He was then hep arinized. Sanguinous fluid was removed from both chest cavities. The pericardium was opened. He wa s cannulated in the standard fashion. Bypass was begun and cardioplegic arrest was obtained with ant egrade cardioplegia, retrograde cardioplegia, topical hypothermia, and systemic cooling. Initially, the left atrium appendage was occluded with a 35 mm AtriClip. We then proceeded with grafting all di stals and proximals with the cross-clamp on. The distal targets were all at least 2 mm in diameter a nd of good quality. The conduits were excellent. The aorta was without thickening or calcification and overall LV function appeared preserved. We were unable to pass the transesophageal echo safely p rior to the procedure. The cross-clamp was then removed with suction on the ascending aortic vent. Spontaneous cardiac activity was noted to resume. The patient was weaned from bypass. The heparin w as reversed with protamine. The cannula was removed and oversewn. Four pacing wires were placed. T wo pleural and one mediastinal drains were placed. The thymic fat and pericardium were closed. We t patrizia did a Robicsek weave and sternal wires and sternal bands because of the fracture. The wound was closed in standard fashion. /[id number]/MODL
[2017-08-13] MEDS ORDERED: DEXMEDETOMIDINE HCL 400 MCG in NS 100 ML IV SCH (13:30)
--- NOTE | 2017-08-13 14:05 | CPEKG ---
Heart Rate: 62 RR Interval: 968 P-R Interval: 264 QRSD Interval: 106 QT Interval: 464 QTC Interval: 472 P [place]: -1 QRS [place]: -35 T Wave [place]: 102 EKG Severity - ABNORMAL ECG - EKG Impression: SINUS RHYTHM EKG Impression: FIRST DEGREE AV BLOCK EKG Impression: INCOMPLETE RBBB AND LAFB EKG Impression: NONSPECIFIC T ABNORMALITIES, LATERAL LEADS Electronically Signed By: Shakir Reynoso 13-Aug-2017 19:34:11
[2017-08-13] MEDS: INSULIN REGULAR HUMAN 100 UNIT in NS 100 ML IV SCH (14:19)
[2017-08-13] MEDS: ASPIRIN RECTAL 300 MG SUPP PR SCH (14:31)
[2017-08-13] MEDS: ALBUMIN 5% 250 ML IV PRN ×4 (14:33→18:26)
[2017-08-13] MEDS: MUPIROCIN 2% 22 GM OINT NS SCH ×2 (14:34→21:22)
[2017-08-13] MEDS: NOREPINEPHRINE BITARTRATE 16 MG in NS 250 ML IV SCH ×2 (15:06→18:50)
--- NOTE | 2017-08-13 16:50 | HOSPPROG ---
Hospitalist Progress Note Assessment/Plan: Assessment: 77 yo M p/w acute hypoxic and hypercapnic respiratory failure, cardiogenic shock, acute encephalopathy 2/2 [id number] cardiac arrest and Type I NSTEMI Plan: # Hyperglycemia. No prior dx DM2, on insulin gtt at 3u/hr post-op -A1c pending, whether he has DM will dictate level of tx after extubation -will cont insulin gtt while on vent, then plan to adjust to ACHS s/p extubation # NSTEMI. Type I, cardiac cath w/ severe MVD (LAD, RCA, LCx) and critical L main disease, trop 4.[address] depressions on presenting EKG, suspect that it resulted in cardiac arrhythmia and resultant cardiac arrest -s/p HACA, w/ e/o neurologic recovery s/p rewarming -POD#0 [id number] w/ L atrial appendage clip by Dr. Chow, primary service # Cardiac arrest. Out of hospital, likely 2/2 ventricular arrhythmia in setting of above, but no specific arrhythmia captured, s/p CPR # Rib fractures. Acute, 2/2 CPR, anticipate chest pain s/p extubation # Acute encephalopathy. Evidenced by global brain dysfunction characterized as unresponsiveness which occurred suddenly, likely 2/2 metabolic acidosis and hypoxia, assess global function s/p extubation # Metabolic and respiratory acidosis. Acute, 2/2 hypoperfusion in setting of cardiogenic shock as well as carbon dioxide retention w/ pH 7.22 # Cardiogenic shock. Acute, 2/2 arrest, EF 55% but required levophed pressor support, intra-aortic balloon pump continues # Acute hypoxic and hypercapnic respiratory failure. POA, NOT related to surgery , evidenced by PCO2 60 and PaO2 47 w/ pH 7.22, w/ respiratory arrest, intubated in the field, cont vent post-op given rib fractures and tenuous status, extubation will be at discretion of Dr. Chow and pulmonary # Acute diastolic CHF exacerbation. Ongoing pleural effusions w/ interstitial infiltrates on CXR this AM (personally interpreted), likely 2/2 volume resuscitation required for above, remains net positive -defer diuretic mgmt to primary service post-op # Acute atelectasis. Likely 2/2 prolonged down time, present on CXR, cont positive pressure Hospital Medicine will continue to consult in daily hyperglycemia mgmt. High level of medical complexity, high risk for worsening morbidity 2/2 issues outlined above. Subjective: intubated, sedated Objective: Vital Signs Temp Pulse Resp BP Pulse Ox 36.3 C 72 14 97/40 L 97 08/13/17 15:35 08/13/17 15:35 08/13/17 15:35 08/13/17 15:35 08/13/17 15:35 Microbiology 08/11/17 01:10 - Final Sputum, Induced/Suctioned Sputum Culture - Final Laboratory Results 08/12/17 22:20 08/13/17 04:50 08/12/17 08/13/17 08/14/17 05:59 05:59 05:59 Intake Total 6734 3850 750 Output Total 2225 2750 900 Balance 4509 1100 -150 PT 14.3 SEC (12.0-15.0) 08/12/17 22:20 INR 1.09 (0.83-1.16) 08/12/17 22:20 - Physical Exam Constitutional: no apparent distress, not in pain, obese, No uncomfortable Eyes: PERRL, anicteric sclera, EOMI, other (minimally tracking) Cardiovascular: regular rate and rhythym, edema (trace bilat LE), other (loud IABP ), No tachycardia Respiratory: reduced air movement (bilat bases), inspiratory crackles, other ( on vent), No expiratory wheeze, No bronchial breath sounds, No respiratory distress Gastrointestinal: No normoactive bowel sounds (hypoactive bowel sounds), No distension Skin: other (no erythema around abd/sub-sternal tubes) Psychiatric: encephalopathic, other (unresponsive to tactile stimuli) ICD10 Worksheet Patient Problems: Problems Problem Status Onset Acute blood loss anemia Acute S/P CABG x 6 Acute ~08/13/17 CAD, multiple vessel Acute chronic disease [facility]/transitional care Acute Cardiac arrest Acute
[2017-08-13] MEDS: DEXMEDETOMIDINE HCL 400 MCG in NS 100 ML IV SCH (17:00)
--- NOTE | 2017-08-13 18:04 | PDINTPN ---
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 Secondary to arrhythmia in the setting of underlying coronary artery disease. On amiodarone. Status post CABG HACA protocol. Off this now. Woke up and appeared to be responding normally to simple questions and commands with decreasing sedation yesterday. Coronary artery bypass grafting x6. Did well intraoperatively. Hypotensive postop requiring Levophed, albumin. IA BP in place. Possible anoxic injury. This did not appear to be present when sedation weaned yesterday. Never came off the latter entirely. Likely will do very well. Respiratory failure: On ventilator post CABG. We will keep him on overnight and assess the possibility of weaning tomorrow. On Precedex. Possible aspiration. On Invanz. Metabolic: On insulin drip per open heart protocols. Prophylaxis: Famotidine, SQ heparin Nutrition: None currently. Hopefully he will be extubated in the next day or 2 and can start to take orals. Plan - Continue ventilatory support post CABG, supportive care. Blood pressure support with Levophed. Continue Invanz and bronchopulmonary therapies. Follow x-ray, ABG and laboratory. Continue Intra-aortic balloon pump per CVS. 45 min of critical care time spent directly with the patient. Multiple visits. Discussed with the patient's family, nursing, respiratory, hospitalist, and the ICU multi disciplinary team. Subjective: Sedated, on the ventilator following CABG Objective: Vital Signs Temp Pulse Resp BP Pulse Ox 36.9 C 82 23 H 120/54 L 95 08/13/17 17:00 08/13/17 17:00 08/13/17 17:00 08/13/17 17:00 08/13/17 17:00 Microbiology 08/11/17 01:10 - Final Sputum, Induced/Suctioned Sputum Culture - Final Laboratory Results 08/12/17 22:20 08/13/17 04:50 08/12/17 08/13/17 08/14/17 05:59 05:59 05:59 Intake Total 6734 3850 1214.1 Output Total 2225 2750 1065 Balance 4509 1100 149.1 PT 14.3 SEC (12.0-15.0) 08/12/17 22:20 INR 1.09 (0.83-1.16) 08/12/17 22:20 Laboratory Tests 05/06/18 13:57 POC pH 7.41 POC pCO2 37 POC pO2 75 POC O2 Sat (Calc) 95 POC FiO2 40.0000 CXR: Hypoventilatory changes with small lung volumes. Basilar atelectasis and/ or infiltrates are present. Large cardiac silhouette. Lines and tubes in good position. Physical Exam - Physical Exam General Appearance: other (Sedated, on ventilator) EENT: PERRL/EOMI, ET tube, other (OG) Neck: normal inspection Respiratory: lungs clear (Anteriorly), decreased breath sounds (At bases), No rhonchi Cardiac/Chest: regular rate, rhythm, other (Intra-aortic balloon pump in place at 1-1 initially. Mediastinal in chest tubes in place with bloody drainage) Abdomen: soft, No normal bowel sounds (Decreased - few present), No non-tender ( Can't assess) Rectal: other (Oliva catheter in place, adequate urine output) Skin: warm/dry, pallor Extremities: pedal edema (Trace +) Neuro/Psych: cognition abnormalities (Can't assess), No no motor/sensory deficits (Can't assess) ICD10 Worksheet Patient Problems: Problems Problem Status Onset Acute blood loss anemia Acute S/P CABG x 6 Acute ~08/13/17 CAD, multiple vessel Acute chronic disease [facility]/transitional care Acute Cardiac arrest Acute
[2017-08-13] MEDS: METOPROLOL TARTRATE 25 MG TAB PO SCH (18:26)
[2017-08-13] MEDS: PANTOPRAZOLE SODIUM 40 MG VIAL IVP SCH ×2 (18:27→21:22)
[2017-08-13] MEDS ORDERED: ALBUMIN 5% 250 ML IV ONE ×2 (19:00→20:00)
[2017-08-13] MEDS ORDERED: CALCIUM CHLORIDE 1 GM/10 ML INJ IV ONE (20:00)
[2017-08-13] MEDS: HEPARIN 5,000 UNIT/0.5 ML INJ SC SCH (22:57)
[2017-08-13] MEDS: ERTAPENEM 1 GM VIAL IV SCH (23:03)
[2017-08-14] MEDS: LORazepam 2 MG/ML INJ IV PRN ×3 (00:36→19:52)
[2017-08-14] MEDS: AMIODARONE HCL 200 ML IV SCH ×2 (02:11→20:39)
[2017-08-14] MEDS: VECURONIUM BROMIDE 50 MG in D5W 50 ML IV SCH (04:49)
[2017-08-14 05:50] LABS: PLATELET COUNT 115 10^3/uL (150-400)
[2017-08-14] MEDS: HEPARIN 5,000 UNIT/0.5 ML INJ SC SCH ×3 (05:58→21:47)
--- NOTE | 2017-08-14 06:20 | SOAPPROG ---
SOAP Progress Note Assessment/Plan: POD #1: Emergent CABGx6 (MARSHALL-LAD, SVG-diag, SVG-ramus, seq SVG-OM1/OM2, SVG-PDA ), closure with Robicsek weave, AtriClip NANCY, EVH left leg Cardiac arrest/VT with severe 3-vessel CAD s/p emergent CABGx6 - arrest in field with with CPR and ROSC. LHC performed and shown to have severe LM stenosis with extensive CAD. IABP placed and HACA protocol initiated with favorable neurologic status after rewarming. IABP removed this AM without issues. Will wean paralytics/sedatives and work on vent weaning. Continue amiodarone for VT prophylaxis. Sternal fracture secondary to CPR s/p Robicsek weave - continue sternal precautions. Acute blood loss anemia - stable s/p transfusion of 1U PRBC. VDRF - wean as tolerated. DVT prophylaxis - SCDs/heparin SQ Subjective: sedated on vent Objective: Vital Signs Temp Pulse Resp BP Pulse Ox 38.3 C 67 18 122/46 H 95 08/14/17 06:00 08/14/17 06:00 08/14/17 06:00 08/14/17 06:00 08/14/17 06:00 Microbiology 08/11/17 01:10 - Final Sputum, Induced/Suctioned Sputum Culture - Final Laboratory Results 08/14/17 05:28 08/13/17 08/14/17 08/15/17 05:59 05:59 05:59 Intake Total 3850 3920.8 Output Total 2750 2755 Balance 1100 1165.8 PT 14.3 SEC (12.0-15.0) 08/12/17 22:20 INR 1.09 (0.83-1.16) 08/12/17 22:20 Physical Exam - Physical Exam General Appearance: unresponsive EENT: ET tube Neck: normal inspection Respiratory: normal breath sounds, No respiratory distress Cardiac/Chest: regular rate, rhythm Abdomen: non-tender, soft, No distended Skin: normal color, warm/dry Extremities: pedal edema Neuro/Psych: other (sedated/paralyzed) ICD10 Worksheet Patient Problems: Problems Problem Status Onset Acute blood loss anemia Acute CAD, multiple vessel Acute Cardiac arrest Acute S/P CABG x 6 Acute ~08/13/17 chronic disease mgmt/transitional care Acute
[2017-08-14] MEDS ORDERED: FUROSEMIDE 40 MG/4 ML VIAL IVP ONE (07:33)
[2017-08-14] MEDS ORDERED: AMIODARONE HCL 540 MG in D5W 300 ML IV ONE (07:37)
--- NOTE | 2017-08-14 08:22 | PDINTPN ---
Screed Operator Progress Note Assessment/Plan: Assessment/plan: * Status post out of hospital cardiac arrest. Secondary to arrhythmia in the setting of underlying coronary artery disease. On amiodarone. Status post 6 vessel CABG * HACA protocol. Off this now. Woke up and appeared to be responding normally to simple questions and commands with decreasing sedation yesterday. * Coronary artery bypass grafting x6. Did well intraoperatively. Hypotensive postop requiring Levophed, albumin. IA BP in place. * Possible anoxic injury. This did not appear to be present when sedation weaned yesterday. Never came off the latter entirely. Likely will do very well. -will assess further once extubated * Acute Respiratory failure: On ventilator post CABG. - will assess for extubation * Sedation- continue on propofol. * Possible aspiration. On Invanz. * Metabolic: On insulin drip per open heart protocols. * Prophylaxis: Famotidine, SQ heparin * Nutrition: None currently. Hopefully he will be extubated soon Subjective: Sedated on mechanical ventilation Objective: Vital Signs Temp Pulse Resp BP Pulse Ox 38.3 C 65 18 122/46 H 96 08/14/17 06:00 08/14/17 08:06 08/14/17 08:06 08/14/17 06:00 08/14/17 08:06 Microbiology 08/11/17 01:10 - Final Sputum, Induced/Suctioned Sputum Culture - Final Laboratory Results 08/14/17 05:28 08/14/17 05:28 08/13/17 08/14/17 08/15/17 05:59 05:59 05:59 Intake Total 3850 3920.8 Output Total 2750 2755 Balance 1100 1165.8 PT 14.3 SEC (12.0-15.0) 08/12/17 22:20 INR 1.09 (0.83-1.16) 08/12/17 22:20 Chest [id number] by myself. Endotracheal tube in good position. Diffuse pulmonary edema. Likely bilateral pleural effusions. - Time Spent With Patient Time Spent With Patient: 35 min of critical care time spent with patient. Case discussed with family, Respiratory therapy and Nursing. Physical Exam - Physical Exam General Appearance: No alert (Sedated) EENT: PERRL/EOMI, ET tube Neck: non-tender Respiratory: crackles (Bibasilar), other (Mechanical ventilation), No respiratory distress, No wheezing Cardiac/Chest: normal peripheral pulses, regular rate, rhythm, systolic murmur Peripheral Pulses: 2+: carotid (R), carotid (L), femoral (R), femoral (L), dorsalis-pedis (R), dorsalis-pedis (L) Abdomen: normal bowel sounds, non-tender, soft Male Genitalia: deferred Rectal: deferred Skin: normal color, warm/dry Extremities: non-tender Neuro/Psych: No alert ICD10 Worksheet Patient Problems: Problems Problem Status Onset Acute blood loss anemia Acute CAD, multiple vessel Acute Cardiac arrest Acute S/P CABG x 6 Acute ~08/13/17 chronic disease mgmt/transitional care Acute
[2017-08-14] MEDS: ASPIRIN RECTAL 300 MG SUPP PR SCH (09:21)
[2017-08-14] MEDS: PANTOPRAZOLE SODIUM 40 MG VIAL IVP SCH ×2 (09:22→20:39)
[2017-08-14] MEDS: MUPIROCIN 2% 22 GM OINT NS SCH ×2 (09:44→20:39)
[2017-08-14] MEDS ORDERED: D50W 25 GM/50 ML SYR IVP PRN (10:21)
[2017-08-14] MEDS: INSULIN REGULAR HUMAN 100 UNIT/ML UNIT SC SCH ×2 (12:17→20:07)
[2017-08-14] MEDS: DEXMEDETOMIDINE HCL 400 MCG in NS 100 ML IV SCH ×2 (13:18→20:39)
--- NOTE | 2017-08-14 14:44 | ASMTCMCOM ---
CM Note CM Note Notes: POD#1 CABG x 6, Sternal fx-CPR, Haca off, vented, possible asp. Trying to wean off vent. CM to follow. Date Signed: 08/14/2017 02:43 PM Electronically Signed By:Caren Martino LCSW
--- NOTE | 2017-08-14 15:00 | ECHO ---
[email or web address] [address] [address] Main: [phone] Fax: [email or web address] Echocardiogram Name: NII GALLO MR#: [id number] Study Date: 08/10/2017 Study Time: Date of : 1940 Age: 77 year(s) Height: 188 cm (74 in.) Weight: 95.26 kg (210 lb.) BSA: 2.22 m2 Gender: Male Examination: Echo Indication: Post Cardiac Arrest/Cath, HACA, Intubated Image Quality: Contrast: Requested by: Munira Vickers BP: 155 mmHg/77 mmHg Heart Rate: Rhythm: Tachycardia Indication: Post Cardiac Arrest/Cath, HACA, Intubated Procedure Staff Machine Operator Transplanter: Jung Palacios RDCS Reading Physician: Twila Shepherd MD Requesting Provider: Conclusions: Normal size left ventricle. The EF is estimated at 40-45% There is mid to distal anteroseptal hypokinesis. There is apical septal hypokinesis and apical inferior hypokinesis.. Normal size right ventricle. Normal RV function. Mild tricuspid regurgitation is present. The pulmonary artery pressure is moderately increased. Estimated PASP is 60 mmHg No prior echo Measurements: Chambers Valvular Assessment AV/MV Valvular Assessment TV/PV Normal Normal Normal Name Value Range Name Value Range Name Value Range Ao Jammie (MM): 3.6 cm (2.2 cm-3.7 AV Vmax: 1.67 m/s (1 m/s-1.7 TR Vmax: 3.71 mm/s ( - ) cm) m/s) TR PGmax: 55 mmHg ( - ) IVSd (2D): 0.9 cm (0.6 cm-1.1 AV maxP mmHg ( - ) syst. PAP: 60 mmHg ( - ) cm) LVOT Vmax: 0.91 m/s (0.7 m/s-1.1 PV Vmax: 1.10 m/s (0.6 m/s-0.9 LVDd (2D): 5.5 cm (4.2 cm-5.9 m/s) m/s) cm) PV PGmax: 5 mmHg ( - ) LVDs (2D): 4.1 cm (2.1 cm-4 cm) LVPWd (2D): 1.1 cm (0.6 cm-1 cm) LVEF (BP): 46 % (>=55 %) Continued Measurements: Chambers Valvular Assessment TV/PV Name Value Name Value Patient: NII GALLO Study Date: 08/10/2017 Page 1 of 2 LADs Lon.4 cm CVP (est.): 5 mmHg LA Area: 15.9 cm2 Findings: Left Ventricle: Normal size left ventricle. The EF is estimated at 40-45% There is mid to distal anteroseptal hypokinesis. There is apical septal hypokinesis and apical inferior hypokinesis.. Right Ventricle: Normal size right ventricle. Normal RV function. Left Atrium: The left atrium is normal in size. Right Atrium: The right atrium is normal in size. Mitral Valve: The mitral valve is normal in appearance and function. Trivial mitral valve regurgitation. Aortic Valve: The aortic valve is tri-leaflet and functions normally. There is no aortic valve regurgitation. Tricuspid Valve: Mild tricuspid regurgitation is present. The pulmonary artery pressure is moderately increased. Estimated PASP is 60 mmHg Pulmonic Valve: The pulmonic valve is normal in appearance and function. Aorta: The aorta is normal. Pericardium: No pericardial effusion. (No Signature Object) Patient: NII GALLO Study Date: 08/10/2017 Page 2 of 2 [id number]
--- NOTE | 2017-08-14 16:42 | HOSPPROG ---
Hospitalist Progress Note Assessment/Plan: Assessment: 77 yo M p/w acute hypoxic and hypercapnic respiratory failure, cardiogenic shock, acute encephalopathy 2/2 [id number] cardiac arrest and Type I NSTEMI Plan: # Hyperglycemia. No prior dx DM2 and A1c 5.1% -now that he is beyond the advised window for insulin gtt, would recommend q6 gluc + ISS, which should reasonably control gluc < 180, as his levels o/n were 100-110 on low rate insulin gtt -once he is extubated, can be adjusted to ACHS ISS, and no agents needed at discharge # NSTEMI. Type I, cardiac cath w/ severe MVD (LAD, RCA, LCx) and critical L main disease, trop 4.[address] depressions on presenting EKG, suspect that it resulted in cardiac arrhythmia and resultant cardiac arrest -s/p HACA, w/ e/o neurologic recovery s/p rewarming -POD#1 [id number] w/ L atrial appendage clip by Dr. Chow, primary service # Cardiac arrest. Out of hospital, likely 2/2 ventricular arrhythmia in setting of above, but no specific arrhythmia captured, s/p CPR # Rib fractures. Acute, 2/2 CPR, anticipate chest pain s/p extubation # Acute encephalopathy. Evidenced by global brain dysfunction characterized as unresponsiveness which occurred suddenly, likely 2/2 metabolic acidosis and hypoxia, assess global function s/p extubation # Metabolic and respiratory acidosis. Acute, 2/2 hypoperfusion in setting of cardiogenic shock as well as carbon dioxide retention w/ pH 7.22 # Cardiogenic shock. Acute, 2/2 arrest, EF 55% but required levophed pressor support, intra-aortic balloon pump continues # Acute hypoxic and hypercapnic respiratory failure. POA, NOT related to surgery , evidenced by PCO2 60 and PaO2 47 w/ pH 7.22, w/ respiratory arrest, intubated in the field, cont vent post-op given rib fractures and tenuous status, extubation will be at discretion of Dr. Chow and pulmonary # Acute diastolic CHF exacerbation. Slight improvement in interstitial infiltrates on CXR this AM (personally interpreted), likely 2/2 volume resuscitation required for above, remains net positive -defer diuretic mgmt to primary service post-op # Acute atelectasis. Likely 2/2 prolonged down time, present on CXR, cont positive pressure Hospital Medicine will continue to consult in daily hyperglycemia mgmt. High level of medical complexity, high risk for worsening morbidity 2/2 issues outlined above. Subjective: during exam patient remained intubated, sedated Objective: Vital Signs Temp Pulse Resp BP Pulse Ox 38.1 C 70 16 117/55 L 100 08/14/17 15:00 08/14/17 15:00 08/14/17 15:00 08/14/17 15:00 08/14/17 15:00 Laboratory Results 08/14/17 05:28 08/14/17 11:05 08/13/17 08/14/17 08/15/17 05:59 05:59 05:59 Intake Total 3850 3920.8 Output Total 2750 2755 2800 Balance 1100 1165.8 -2800 PT 14.3 SEC (12.0-15.0) 08/12/17 22:20 INR 1.09 (0.83-1.16) 08/12/17 22:20 - Physical Exam Constitutional: no apparent distress, not in pain, obese, No uncomfortable Eyes: PERRL, anicteric sclera, other (tracking pupils) Cardiovascular: regular rate and rhythym, no murmur, rub, or gallop, edema ( trace bilat LE), No irregularly irregular, No tachycardia Respiratory: reduced air movement (bilat bases), inspiratory crackles (bilat bases), No expiratory wheeze, No bronchial breath sounds, No respiratory distress Gastrointestinal: soft, non-tender abdomen, No normoactive bowel sounds ( hypoactive bowel sounds), No guarding, No distension Skin: other (no erythema or dehiscence around drain sites on abd, sternal surg site CDI) Psychiatric: other (not following commands) ICD10 Worksheet Patient Problems: Problems Problem Status Onset Acute blood loss anemia Acute S/P CABG x 6 Acute ~08/13/17 CAD, multiple vessel Acute chronic disease mgmt/transitional care Acute Cardiac arrest Acute
--- NOTE | 2017-08-14 17:31 | WOCRNPDOC ---
WOCRN Advanced Assessment Note - Skin Integrity Problem, Advanced Assess Right Lower Lip Dressing Type: Open to Air Site Measurement - Head-to-Toe Length X Width X Depth (cm): 0.3x2.7x0 Pressure Injury Stage: Mucosal Pressure Injury, Lithographic General Worker Related Pressure Injury (ET tube) Pressure Injury Present on Admit: No Skin Integrity Problem Comment: No open areas at this time. Tissue is dark red/ purple compared to surrounding tissue. Right Medial Nostril Dressing Type: Open to Air Exudate Amount: None Wound Bed Constitution: Scab Site Measurement - Head-to-Toe Length X Width X Depth (cm): 0.5x1.1x0.1 Pressure Injury Stage: Deep Tissue Injury (DTI), Lithographic General Worker Related Pressure Injury (Ng tube) Pressure Injury Present on Admit: No Skin Integrity Problem Comment: Evolving Deep Tissue Injury. Wound care will follow and round again later this week to monitor progress. DEVAN Ortiz in room for care as well as student RN who visualized wounds. Upper Lip Pressure Injury Dressing Type: Open to Air Site Measurement - Head-to-Toe Length X Width X Depth (cm): 1x1.2x0.1 Pressure Injury Stage: Mucosal Pressure Injury, Lithographic General Worker Related Pressure Injury (ET tube) Pressure Injury Present on Admit: No Skin Integrity Problem Comment: Tiny shallow open areas present within an defined area of erythema. Wound will heal as long as pressure remains off the area. No other intervention is necessary. Wound care will follow all facial pressure injuries.
[2017-08-14] MEDS: NOREPINEPHRINE BITARTRATE 16 MG in NS 250 ML IV SCH (20:39)
[2017-08-14] MEDS: ERTAPENEM 1 GM VIAL IV SCH (22:23)
[2017-08-15] MEDS: INSULIN REGULAR HUMAN 100 UNIT/ML UNIT SC SCH ×4 (02:19→18:24)
[2017-08-15 05:32] LABS: PLATELET COUNT 108 10^3/uL (150-400)
[2017-08-15] MEDS: HEPARIN 5,000 UNIT/0.5 ML INJ SC SCH ×3 (05:47→21:56)
--- NOTE | 2017-08-15 06:19 | SOAPPROG ---
SOAP Progress Note Assessment/Plan: POD #2: Emergent CABGx6 (MARSHALL-LAD, SVG-diag, SVG-ramus, seq SVG-OM1/OM2, SVG-PDA ), closure with Robicsek weave, AtriClip NANCY, EVH left leg Cardiac arrest/VT with severe 3-vessel CAD s/p emergent CABGx6 - arrest in field with with CPR and ROSC. LHC shown to have severe LM stenosis with extensive CAD. IABP placed and HACA protocol initiated with favorable neurologic status after rewarming. IABP removed / without issues. On low dose Levophed for vasodilation and amiodarone for VT prophylaxis. Sternal fracture secondary to CPR s/p Robicsek weave - continue sternal precautions. Acute blood loss anemia - stable s/p transfusion of 1U PRBC. VDRF/possible aspiration PNA - extubated without difficulty. Prophylactic antibiotics as per pulmonology. Encephalopathy - secondary to cardiac arrest. Continue supportive care. DVT prophylaxis - SCDs/heparin SQ Subjective: Following commands. Objective: Vital Signs Temp Pulse Resp BP Pulse Ox 38 C 62 14 110/54 L 99 08/15/17 04:00 08/15/17 06:00 08/15/17 06:00 08/15/17 06:00 08/15/17 06:00 Laboratory Results 08/15/17 05:00 08/15/17 05:00 08/14/17 08/15/17 08/16/17 05:59 05:59 05:59 Intake Total 3920.8 886 Output Total 2755 4165 Balance 1165.8 -3279 PT 14.3 SEC (12.0-15.0) 08/12/17 22:20 INR 1.09 (0.83-1.16) 08/12/17 22:20 Physical Exam - Physical Exam General Appearance: no apparent distress EENT: No scleral icterus (R), No scleral icterus (L) Neck: normal inspection Respiratory: No respiratory distress Cardiac/Chest: regular rate, rhythm Abdomen: non-tender, soft, No distended Skin: normal color, warm/dry Extremities: pedal edema Neuro/Psych: motor weakness ICD10 Worksheet Patient Problems: Problems Problem Status Onset Acute blood loss anemia Acute CAD, multiple vessel Acute Cardiac arrest Acute S/P CABG x 6 Acute ~08/13/17 chronic disease mgmt/transitional care Acute
[2017-08-15] MEDS: LORazepam 2 MG/ML INJ IV PRN ×2 (07:40→12:48)
[2017-08-15] MEDS ORDERED: BISACODYL 10 MG SUPP PR PRN (09:13)
[2017-08-15] MEDS ORDERED: LACTULOSE 20 GM/30 ML UDCUP PO PRN (09:13)
[2017-08-15] MEDS ORDERED: MAGNESIUM HYDROXIDE 30 ML UDCUP PO PRN (09:13)
[2017-08-15] MEDS ORDERED: POLYETHYLENE GLYCOL 3350 17 GM PKT PO PRN (09:13)
--- NOTE | 2017-08-15 09:13 | PDINTPN ---
Flying Instructor Progress Note Assessment/Plan: Assessment/plan: * Status post out of hospital cardiac arrest. Secondary to arrhythmia in the setting of underlying coronary artery disease. On amiodarone. Status post 6 vessel CABG * HACA protocol. Off this now. Woke up and appeared to be responding normally to simple questions and commands with decreasing sedation yesterday. * Coronary artery bypass grafting x6. Did well intraoperatively. Hypotensive postop requiring Levophed, albumin. IA BP in place. * Possible anoxic injury-agitated. Currently back on Precedex -will follow this closely * Acute Respiratory failure-stable off mechanical ventilation * Sedation- continue on Precedex * Possible aspiration. On Invanz. * Metabolic: On insulin drip per open heart protocols. * Prophylaxis: Famotidine, SQ heparin * Nutrition: Feeding tube to place today Subjective: Sitting up in bed. Not currently agitated. Objective: Vital Signs Temp Pulse Resp BP Pulse Ox 38 C 62 14 110/54 L 99 08/15/17 04:00 08/15/17 06:00 08/15/17 06:00 08/15/17 06:00 08/15/17 06:00 Laboratory Results 08/15/17 05:00 08/15/17 05:00 08/14/17 08/15/17 08/16/17 05:59 05:59 05:59 Intake Total 3920.8 886 Output Total 2755 4165 Balance 1165.8 -3279 PT 14.3 SEC (12.0-15.0) 08/12/17 22:20 INR 1.09 (0.83-1.16) 08/12/17 22:20 - Time Spent With Patient Time Spent With Patient: 35 min of time spent with patient, over 1/2 involved with coordination of care or counseling Physical Exam - Physical Exam General Appearance: WD/WN, alert, moderate distress EENT: PERRL/EOMI, normal ENT inspection Neck: non-tender, full range of motion, supple, normal inspection Respiratory: decreased breath sounds, No stridor, No wheezing Cardiac/Chest: normal peripheral pulses, regular rate, rhythm, systolic murmur, other (Incision healing) Peripheral Pulses: 2+: carotid (R), carotid (L), femoral (R), femoral (L), dorsalis-pedis (R), dorsalis-pedis (L) Abdomen: normal bowel sounds, non-tender, soft Male Genitalia: deferred Rectal: deferred Skin: normal color, warm/dry Extremities: normal range of motion, non-tender, normal inspection, normal capillary refill Neuro/Psych: No alert ICD10 Worksheet Patient Problems: Problems Problem Status Onset Acute blood loss anemia Acute CAD, multiple vessel Acute Cardiac arrest Acute S/P CABG x 6 Acute ~08/13/17 chronic disease mgmt/transitional care Acute
[2017-08-15] MEDS: ASPIRIN RECTAL 300 MG SUPP PR SCH (10:21)
[2017-08-15] MEDS: PANTOPRAZOLE SODIUM 40 MG VIAL IVP SCH ×2 (10:22→21:57)
[2017-08-15] MEDS: MUPIROCIN 2% 22 GM OINT NS SCH (10:23)
[2017-08-15] MEDS: AMIODARONE HCL 200 ML IV SCH (11:26)
[2017-08-15] MEDS ORDERED: DEXMEDETOMIDINE HCL 400 MCG in NS 100 ML IV SCH (13:00)
--- NOTE | 2017-08-15 17:57 | HOSPPROG ---
Hospitalist Progress Note Assessment/Plan: Assessment: 77 yo M p/w acute hypoxic and hypercapnic respiratory failure, cardiogenic shock, acute encephalopathy 2/2 siz-lb-aocpfvre cardiac arrest and Type I NSTEMI Plan: # Hyperglycemia. No prior dx DM2 and A1c 5.1% -cont q6 gluc + ISS, which should reasonably control gluc < 180 -once he is eating/drinking, can be adjusted to ACHS ISS, and no agents needed at discharge -unlikely to require long-acting insulin during this hospitalization # NSTEMI. Type I, cardiac cath w/ severe MVD (LAD, RCA, LCx) and critical L main disease, trop 4.[address] depressions on presenting EKG, suspect that it resulted in cardiac arrhythmia and resultant cardiac arrest -s/p HACA, w/ e/o neurologic recovery s/p rewarming -POD#2 RBDDb1g w/ L atrial appendage clip by Dr. Chow, primary service # Cardiac arrest. Out of hospital, likely 2/2 ventricular arrhythmia in setting of above, but no specific arrhythmia captured, s/p CPR # Rib fractures. Acute, 2/2 CPR, anticipate chest pain s/p extubation # Acute encephalopathy. Evidenced by global brain dysfunction characterized as unresponsiveness which occurred suddenly, likely 2/2 metabolic acidosis and hypoxia, ongoing somnolence post-extubation, follows very minimal 1-step commands # Metabolic and respiratory acidosis. Acute, 2/2 hypoperfusion in setting of cardiogenic shock as well as carbon dioxide retention w/ pH 7.22 # Cardiogenic shock. Acute, 2/2 arrest, EF 55% but required levophed pressor support, intra-aortic balloon pump continues # Acute hypoxic and hypercapnic respiratory failure. POA, NOT related to surgery , evidenced by PCO2 60 and PaO2 47 w/ pH 7.22, w/ respiratory arrest, intubated in the field, cont vent post-op given rib fractures and tenuous status, extubated # Acute diastolic CHF exacerbation. Slight improvement in interstitial infiltrates on CXR this AM (personally interpreted), likely 2/2 volume resuscitation required for above, remains net positive -net neg 3.2L o/n -defer diuretic mgmt to primary service post-op # Acute atelectasis. Likely 2/2 prolonged down time, IS # KEELY. 2/2 renal hypoperfusion, likely in setting of significant diuresis w/ Cr 1.5, downtrending to 1.2, defer mgmt to primary team D/w Dr. Chow, [facility] medicine will sign-off at this juncture, but if additional medical issues arise, CT surg will contact and re-engage our service. Subjective: patient w/o significant pain, resp status better when sitting upright Objective: Vital Signs Temp Pulse Resp BP Pulse Ox 38 C 71 14 100/57 L 94 08/15/17 17:00 08/15/17 17:00 08/15/17 17:00 08/15/17 17:00 08/15/17 17:00 Laboratory Results 08/15/17 05:00 08/14/17 08/15/17 08/16/17 05:59 05:59 05:59 Intake Total 3920.8 886 Output Total 2755 4165 770 Balance 1165.8 -3279 -770 PT 14.3 SEC (12.0-15.0) 08/12/17 22:20 INR 1.09 (0.83-1.16) 08/12/17 22:20 - Physical Exam Constitutional: no apparent distress, not in pain, obese, No uncomfortable Cardiovascular: edema (trace LE ), No systolic murmur (distant heart sounds), No irregularly irregular, No tachycardia Respiratory: reduced air movement (L base), No expiratory wheeze, No bronchial breath sounds, No respiratory distress Gastrointestinal: No normoactive bowel sounds (hypoactive bowel sounds), No tenderness, No guarding, No distension Skin: other (no significant erythema/dehiscence/tenderness/ecchymoses at the surg sites on chest) Psychiatric: encephalopathic, other (responsive to verbal stimuli, does not currently follow commands, somnolent ) ICD10 Worksheet Patient Problems: Problems Problem Status Onset Acute blood loss anemia Acute CAD, multiple vessel Acute Cardiac arrest Acute S/P CABG x 6 Acute ~08/13/17 chronic disease mgmt/transitional care Acute
[2017-08-15] MEDS ORDERED: LORazepam 2 MG/ML INJ ONE (20:36)
[2017-08-15] MEDS: LORazepam 2 MG/ML INJ IVP PRN (20:45)
[2017-08-15] MEDS ORDERED: SENNOSIDES/DOCUSATE SODIUM TAB PO SCH (21:00)
[2017-08-15] MEDS ORDERED: ALBUMIN 5% 250 ML BOTTLE IV ONE (21:20)
[2017-08-15] MEDS ORDERED: ALBUMIN 5% 250 ML IV ONE (22:00)
[2017-08-15] MEDS: ERTAPENEM 1 GM VIAL IV SCH (22:59)
[2017-08-16] MEDS: INSULIN REGULAR HUMAN 100 UNIT/ML UNIT SC SCH ×4 (01:10→17:54)
[2017-08-16] MEDS: LORazepam 2 MG/ML INJ IVP PRN ×3 (02:36→11:46)
[2017-08-16] MEDS: ALBUTEROL 3 ML DEYVIAL IH PRN ×2 (03:46→14:07)
[2017-08-16 04:35] LABS: PLATELET COUNT 109 10^3/uL (150-400)
[2017-08-16] MEDS ORDERED: OXYCODONE/APAP 5/325 TAB PO PRN (06:44)
--- NOTE | 2017-08-16 06:52 | SOAPPROG ---
SOAP Progress Note Assessment/Plan: POD #3: Emergent CABGx6 (MARSHALL-LAD, SVG-diag, SVG-ramus, seq SVG-OM1/OM2, SVG-PDA ), closure with Robicsek weave, AtriClip NANCY, EVH left leg Cardiac arrest/VT with severe 3-vessel CAD s/p emergent CABGx6 - arrest in field with with CPR and ROSC. LHC shown to have severe LM stenosis with extensive CAD. IABP placed and HACA protocol initiated with favorable neurologic status after rewarming. IABP removed / without issues. Continue ASA for secondary prevention. BB/statin when appropriate. Sternal fracture secondary to CPR s/p Robicsek weave - continue sternal precautions. Acute blood loss anemia - stable s/p transfusion of 1U PRBC. VDRF/possible aspiration PNA - extubated without difficulty. Prophylactic antibiotics as per pulmonology. Encephalopathy - secondary to cardiac arrest. Continue supportive care. DVT prophylaxis - SCDs/heparin SQ Subjective: Agitated. Not following commands. Objective: Vital Signs Temp Pulse Resp BP Pulse Ox 38.1 C 80 22 H 93/60 L 93 08/16/17 04:00 08/16/17 04:00 08/16/17 04:00 08/16/17 04:00 08/16/17 04:00 Laboratory Results 08/16/17 04:10 08/16/17 04:10 08/15/17 08/16/17 08/17/17 05:59 05:59 05:59 Intake Total 886 266 Output Total 4165 1640 Balance -3279 -1374 PT 14.3 SEC (12.0-15.0) 08/12/17 22:20 INR 1.09 (0.83-1.16) 08/12/17 22:20 Physical Exam - Physical Exam General Appearance: moderate distress EENT: No scleral icterus (R), No scleral icterus (L) Neck: normal inspection Respiratory: No respiratory distress Abdomen: non-tender, soft, No guarding Skin: normal color, warm/dry Extremities: pedal edema Neuro/Psych: other (agitated ) ICD10 Worksheet Patient Problems: Problems Problem Status Onset Acute blood loss anemia Acute CAD, multiple vessel Acute Cardiac arrest Acute S/P CABG x 6 Acute ~08/13/17 chronic disease mgmt/transitional care Acute
[2017-08-16] MEDS ORDERED: HALOPERIDOL LACT 5 MG/ML INJ ONE (06:59)
[2017-08-16] MEDS: HALOPERIDOL LACT 5 MG/ML INJ IVP PRN ×2 (07:00→19:16)
[2017-08-16] MEDS: HEPARIN 5,000 UNIT/0.5 ML INJ SC SCH ×3 (07:20→21:44)
[2017-08-16] MEDS ORDERED: D5W 1,000 ML IV SCH (07:30)
--- NOTE | 2017-08-16 08:42 | PDINTPN ---
Nurses Assistant Progress Note Assessment/Plan: Assessment/plan: * Status post out of hospital cardiac arrest. Secondary to arrhythmia in the setting of underlying coronary artery disease. On amiodarone. Status post 6 vessel CABG * Status post HACA protocol. * Coronary artery bypass grafting x6. Did well intraoperatively. * Possible anoxic injury-agitated early this morning. Improved on Haldol -will follow this closely * Acute Respiratory failure-stable off mechanical ventilation. Increased secretions -will add duo nebs * Sedation- continue on Precedex * Possible aspiration. On Invanz. * Prophylaxis: Famotidine, SQ heparin * Nutrition: Feeding tube to place today * PT/OT * Out of bed to chair 08/16/17 08:39 Subjective: Resting comfortably after being given a dose of Haldol. Objective: Vital Signs Temp Pulse Resp BP Pulse Ox 38.8 C H 78 14 98/54 L 97 08/16/17 08:00 08/16/17 08:00 08/16/17 08:00 08/16/17 08:00 08/16/17 08:00 Laboratory Results 08/16/17 04:10 08/16/17 04:10 08/15/17 08/16/17 08/17/17 05:59 05:59 05:59 Intake Total 886 583 Output Total 4165 1700 400 Balance -3279 -1117 -400 PT 14.3 SEC (12.0-15.0) 08/12/17 22:20 INR 1.09 (0.83-1.16) 08/12/17 22:20 Laboratory Results 08/16/17 04:10 08/16/17 04:10 08/16/17 06:55 Patient Temperature 38.9 DEGREES DEGREES pCO2 53 mmHg H mmHg (34 - 38) pO2 86 mmHg H mmHg (65 - 75) Total CO2 25 mEq/L mEq/L (23 - 27) ABG pH 7.28 L (7.35 - 7.45) ABG PO2/FiO2 Ratio 86 RATIO RATIO ABG HCO3 24 mEq/L mEq/L (22 - 26) ABG O2 Saturation 93 % % (92 - 95) ABG Base Excess -2.2 mEq/L mEq/L (-2.5 - 2.5) Total O2 Concentration 4.0 LITERS LITERS O2 Concentration % 100 % % Chest a-ulo-gkurixjf by myself. Cardiomegaly some evidence of atelectasis. Diffuse pulmonary edema - Time Spent With Patient Time Spent With Patient: 35 min of time spent with patient, over 1/2 involved with coordination of care counseling. Case discussed with Nursing and Respiratory therapy. Long discussion with the patient's Physical Exam - Physical Exam General Appearance: other (Sedated), No alert EENT: PERRL/EOMI, normal ENT inspection Neck: non-tender, full range of motion Respiratory: rhonchi (Scattered), No accessory muscle use, No wheezing Cardiac/Chest: normal peripheral pulses, regular rate, rhythm, systolic murmur Abdomen: normal bowel sounds, non-tender, soft Male Genitalia: deferred Rectal: deferred Skin: normal color, warm/dry Extremities: normal range of motion, non-tender, normal inspection, normal capillary refill Neuro/Psych: No alert ICD10 Worksheet Patient Problems: Problems Problem Status Onset Acute blood loss anemia Acute CAD, multiple vessel Acute Cardiac arrest Acute S/P CABG x 6 Acute ~08/13/17 chronic disease mgmt/transitional care Acute
[2017-08-16] MEDS ORDERED: IPRATROPIUM/ALBUTEROL 3 ML DEYVIAL IH PRN (08:43)
[2017-08-16] MEDS ORDERED: POLYETHYLENE GLYCOL 3350 17 GM PKT TUBE PRN (09:00)
[2017-08-16] MEDS ORDERED: LACTULOSE 20 GM/30 ML UDCUP TUBE PRN (09:00)
[2017-08-16] MEDS ORDERED: MAGNESIUM HYDROXIDE 30 ML UDCUP TUBE PRN (09:00)
--- NOTE | 2017-08-16 09:10 | CPEKG ---
Heart Rate: 74 RR Interval: 811 P-R Interval: 208 QRSD Interval: 100 QT Interval: 392 QTC Interval: 435 P Geneva: 78 QRS Geneva: -4 T Wave Geneva: 21 EKG Severity - NORMAL ECG - EKG Impression: SINUS RHYTHM Electronically Signed By: Shakir Reynoso 16-Aug-2017 16:25:30
[2017-08-16] MEDS ORDERED: POTASSIUM CL 10 MEQ TAB PO ONE (09:13)
[2017-08-16] MEDS ORDERED: POTASSIUM CL 20 MEQ/15 ML UDCUP ONE (09:20)
[2017-08-16] MEDS: SENNOSIDES 17.6 MG/10 ML UDL TUBE SCH ×2 (09:21→21:44)
[2017-08-16] MEDS: ASPIRIN RECTAL 300 MG SUPP PR SCH (09:22)
[2017-08-16] MEDS: LANSOPRAZOLE SUSP 30MG/10ML UDSYR (Adult) TUBE SCH (09:22)
[2017-08-16] MEDS ORDERED: POTASSIUM CL 20 MEQ/15 ML UDCUP TUBE ONE ×3 (09:30→21:45)
[2017-08-16] MEDS: ORAL BALANCE GEL TUBE PO PRN (11:02)
--- NOTE | 2017-08-16 14:08 | ASMTCMCOM ---
CM Note CM Note Notes: A family meeting was held today on behalf of the patient. In attendance were: Juliana, patient's , Marika, patient's daughter, 2 friends that were traveling with him when he came to [place], Domingo and Lashaun Chang, nurse manager therapy, Dmitry, spiritual care and myself from case management. The family had just met with Dr. Chow and some of the conversation they were unprepared for. Patient's Juliana was emotional from trying to process the information. The family would like to talk to a neurologist as well as they feel this is a big part of the picture in care and recovery. Lashaun will make arrangements for this. Juliana and Kathryn describe the patient as an active, engaged extremely intelligent man. Per family and friends he has always enjoyed good health with the exception of a knee replacement and recently a detached retina. 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 Patient's first from cancer. 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 Dr. Chow had mentioned LTAC for next level of care but the family has requested we have d/c discussion on another day as they are overwhelmed today.Juliana was given paperwork for advanced directive and states patient had named her as his MDPOA but they can't find the paperwork which is in [place]. Due to daughter and friends all being in agreement with Juliana,patient's being MDPOA, verbal designation will do for now. Juliana and Kathryn plan to review and fill out the advanced directive for patient's chart. Family was informed they can have family meetings on Mondays, Tuesdays and should they need another meeting. They were all encouraged to take care of themselves and make sure they are getting rest and nutrition during this time. Juliana has not left the hospital since the initial event, but plans to go to a hotel room this evening as she is exhausted emotionally and physically. The family was appreciative of the opportunity to have their questions answered and get support. CM will follow. Date Signed: 08/16/2017 02:07 PM Electronically Signed By:Collette Tolentino LCSW
[2017-08-16] MEDS: OXYCODONE/APAP 5/325 TAB TUBE PRN (18:59)
[2017-08-17] MEDS: ERTAPENEM 1 GM VIAL IV SCH ×2 (00:06→23:06)
[2017-08-17] MEDS: INSULIN REGULAR HUMAN 100 UNIT/ML UNIT SC SCH ×3 (01:36→12:23)
[2017-08-17] MEDS: OXYCODONE/APAP 5/325 TAB TUBE PRN (03:00)
[2017-08-17] MEDS ORDERED: POTASSIUM Cl (KCl) 50 ML IV ONE ×2 (05:26→07:58)
[2017-08-17] MEDS ORDERED: POTASSIUM CL 20 MEQ/15 ML UDCUP TUBE ONE ×3 (05:45→14:45)
[2017-08-17] MEDS: HEPARIN 5,000 UNIT/0.5 ML INJ SC SCH ×3 (05:46→21:27)
--- NOTE | 2017-08-17 06:49 | SOAPPROG ---
SOAP Progress Note Assessment/Plan: Assessment: POD#4 Urgent CABGx6 (MARSHALL-LAD, SVG-Dx, SVG-RI, SVG seq OM1 to OM2, SVG-PDA), closure with Robicsek weave, AtriClip NANCY, EVH LLE. Nutrition via TFs. IV access rt [facility] Cardiac arrest/VT with severe 3-vessel CAD - Arrest in field with with CPR and ROSC. Shown to have severe LM stenosis with extensive CAD and preserved LV systolic fx. IABP placed and HACA protocol initiated. Favorable neurologic status after rewarming and urgent CABGx6 undertaken. IABP removed POD#1. Secondary prevention with ASA for now. BB/statin when appropriate. Sternal fractures secondary to CPR - Sternum stabilized with Robicsek weave. Strict sternal precautions x 6 wks. Acute blood loss anemia - stable s/p transfusion of 1U PRBC. VTE prophylaxis with SQ hep/SCDs. VDRF/possible aspiration PNA - Extubated POD#1 without incident. Prophylactic antibiotics as per pulmonology. Encephalopathy - secondary to cardiac arrest. Continue supportive care. Plan: D5W at 75 ml/h. Inc free water flushes to 100 ml q4h. Relax haldol. Keep CTs for one more day. Cont inc activity as tolerated. 08/17/17 06:41 Subjective: Sitting in a chair. Oriented to person and time. Answers simple questions appropriately. RUBIN. Objective: Vital Signs Temp Pulse Resp BP Pulse Ox 37.8 C 77 13 110/52 L 95 08/17/17 05:00 08/17/17 06:00 08/17/17 06:00 08/17/17 06:00 08/17/17 06:00 Laboratory Results 08/17/17 03:30 08/17/17 03:30 08/16/17 08/17/17 08/18/17 05:59 05:59 05:59 Intake Total 583 1422 Output Total 1700 2945 Balance -1117 -1523 PT 14.3 SEC (12.0-15.0) 08/12/17 22:20 INR 1.09 (0.83-1.16) 08/12/17 22:20 HR, rhythm and BP stable. Modest suppl O2 req. Adequate fluid balance w stable renal fx. TFs at goal. Dissipating CTOP. Mild hypernatremia. Physical Exam - Physical Exam General Appearance: alert, no apparent distress Respiratory: crackles (bases), other (blakes x 3 to bulb suction, thin serosang drainage) Cardiac/Chest: regular rate, rhythm, other (Sternotomy and LLE venotomy CDI. A& V wires intact.) Abdomen: non-tender, soft Skin: warm/dry Extremities: other (no visible dependent edema) ICD10 Worksheet Patient Problems: Problems Problem Status Onset Acute blood loss anemia Acute CAD, multiple vessel Acute Cardiac arrest Acute S/P CABG x 6 Acute ~08/13/17 chronic disease mgmt/transitional care Acute
[2017-08-17] MEDS ORDERED: HALOPERIDOL LACT 5 MG/ML INJ IVP PRN (07:23)
[2017-08-17] MEDS: D5W 1,000 ML IV SCH ×2 (07:56→21:28)
[2017-08-17] MEDS: SENNOSIDES 17.6 MG/10 ML UDL TUBE SCH (08:37)
[2017-08-17] MEDS: ASPIRIN RECTAL 300 MG SUPP PR SCH (08:38)
[2017-08-17] MEDS: LANSOPRAZOLE SUSP 30MG/10ML UDSYR (Adult) TUBE SCH (08:49)
--- NOTE | 2017-08-17 09:15 | PDINTPN ---
Senior Sql Server Database Developer Progress Note Assessment/Plan: Assessment/plan: * Status post out of hospital cardiac arrest. Secondary to arrhythmia in the setting of underlying coronary artery disease. On amiodarone. Status post 6 vessel CABG * Status post HACA protocol. * Sternal fractures-secondary to chest compressions * Coronary artery bypass grafting x6. Did well intraoperatively. * Possible anoxic injury/encephalopathy-markedly improved today. Calmer and conversant with family * Acute Respiratory failure-stable off mechanical ventilation. -will add duo nebs * Possible aspiration. On Invanz. * Prophylaxis: Famotidine, SQ heparin * Nutrition: Tolerating tube feeds * PT/OT * Out of bed to chair Subjective: Sitting up in chair. Resting comfortably. Objective: Vital Signs Temp Pulse Resp BP Pulse Ox 37.8 C 79 20 111/58 L 92 08/17/17 05:00 08/17/17 08:00 08/17/17 08:00 08/17/17 08:00 08/17/17 08:00 Laboratory Results 08/17/17 03:30 08/17/17 03:30 08/16/17 08/17/17 08/18/17 05:59 05:59 05:59 Intake Total 583 1422 Output Total 1700 2945 150 Balance -1117 -1523 -150 PT 14.3 SEC (12.0-15.0) 08/12/17 22:20 INR 1.09 (0.83-1.16) 08/12/17 22:20 - Time Spent With Patient Time Spent With Patient: 35 min of time spent with patient, over 1/2 involved with coordination of care or counseling. Case discussed with nursing. Physical Exam - Physical Exam General Appearance: other (Somnolent) EENT: PERRL/EOMI, normal ENT inspection Neck: non-tender, full range of motion, supple, normal inspection Respiratory: rhonchi (Few), No respiratory distress, No accessory muscle use Cardiac/Chest: normal peripheral pulses, regular rate, rhythm, systolic murmur Peripheral Pulses: 2+: carotid (R), carotid (L), femoral (R), femoral (L), dorsalis-pedis (R), dorsalis-pedis (L) Abdomen: normal bowel sounds, non-tender, soft Male Genitalia: deferred Rectal: deferred Skin: normal color, warm/dry Extremities: normal range of motion, non-tender, normal inspection, normal capillary refill ICD10 Worksheet Patient Problems: Problems Problem Status Onset Acute blood loss anemia Acute CAD, multiple vessel Acute Cardiac arrest Acute S/P CABG x 6 Acute ~08/13/17 chronic disease mgmt/transitional care Acute
[2017-08-17] MEDS ORDERED: POTASSIUM CL 10 MEQ TAB PO ONE (14:38)
--- NOTE | 2017-08-17 15:16 | WOCRNPDOC ---
WOCRN Advanced Assessment Note - Skin Integrity Problem, Advanced Assess Right Lower Lip Dressing Type: Open to Air Wound Bed Constitution: Healed Pressure Injury Stage: Mucosal Pressure Injury, Senior Lead Java Developer Related Pressure Injury (Et tube) Pressure Injury Present on Admit: No Upper Lip Pressure Injury Dressing Type: Open to Air Wound Bed Constitution: Healed Pressure Injury Stage: Mucosal Pressure Injury, Senior Lead Java Developer Related Pressure Injury (ET tube) Pressure Injury Present on Admit: No Right Medial Nostril Dressing Type: Open to Air Wound Bed Constitution: Stable Eschar (100%) Pressure Injury Stage: Unstageable, Senior Lead Java Developer Related Pressure Injury (ng tube) Pressure Injury Present on Admit: No Skin Integrity Problem Comment: Stable wound that appears to be healing. No concerns. Leave COMMUNITY COORDINATOR. Wound care will round again late next week or week after.
[2017-08-17] MEDS ORDERED: POLYETHYLENE GLYCOL 3350 17 GM PKT PO PRN (16:30)
[2017-08-17] MEDS ORDERED: LACTULOSE 20 GM/30 ML UDCUP PO PRN (16:30)
[2017-08-17] MEDS ORDERED: MAGNESIUM HYDROXIDE 30 ML UDCUP PO PRN (16:30)
[2017-08-17] MEDS ORDERED: SENNOSIDES/DOCUSATE SODIUM TAB PO SCH (21:00)
[2017-08-17] MEDS: OXYCODONE/APAP 5/325 TAB PO PRN (21:28)
[2017-08-18] MEDS: HEPARIN 5,000 UNIT/0.5 ML INJ SC SCH ×3 (05:42→21:24)
[2017-08-18] MEDS: OXYCODONE/APAP 5/325 TAB PO PRN ×3 (05:42→23:24)
--- NOTE | 2017-08-18 07:54 | SOAPPROG ---
SOAP Progress Note Assessment/Plan: Assessment: POD#5 Urgent CABGx6 (MARSHALL-LAD, SVG-Dx, SVG-RI, SVG seq OM1 to OM2, SVG-PDA), closure with Robicsek weave, AtriClip NANCY, EVH LLE. IV access rt [facility] Cardiac arrest/VT with severe 3-vessel CAD - Arrest in field with with CPR and ROSC. Shown to have severe LM stenosis with extensive CAD and preserved LV systolic fx. IABP placed and HACA protocol initiated. Favorable neurologic status after rewarming and urgent CABGx6 undertaken. IABP removed POD#1. Secondary prevention with ASA for now. BB/statin when appropriate. Sternal fractures secondary to CPR - Sternum stabilized with Robicsek weave. Strict sternal precautions x 6 wks. Acute blood loss anemia - stable s/p transfusion of 1U PRBC. VTE prophylaxis with SQ hep/SCDs. VDRF/possible aspiration PNA - Extubated POD#1 without incident. Cleared for orals by STREET CAR MECHANIC yest. Prophylactic antibiotics as per pulmonology. Encephalopathy - secondary to cardiac arrest/anoxic injury. Continue supportive care. Anticipate IPR vs SNF for ongoing rehab. Plan: Stop D5W. 2L fluid restriction. Remove TCPW and mediastinal drain +/- pleural drains. Dietary advancement per [employer]REET [employer]. Inpatient rehab consult. Cont inc activity as tolerated. SDU status. 08/18/17 07:51 Subjective: Awake, alert, conversant. Doing his best to cooperate with rehab. Objective: Vital Signs Temp Pulse Resp BP Pulse Ox 37.1 C 70 13 112/56 L 95 08/18/17 07:00 08/18/17 07:00 08/18/17 07:00 08/18/17 07:00 08/18/17 07:00 Laboratory Results 08/17/17 03:30 08/18/17 05:00 08/17/17 08/18/17 08/19/17 05:59 05:59 05:59 Intake Total 1422 3271 Output Total 2945 7365 Balance -1523 716 PT 14.3 SEC (12.0-15.0) 08/12/17 22:20 INR 1.09 (0.83-1.16) 08/12/17 22:20 Advanced to orals yest. Beginning to and june. Cardioresp status stable. CTOP approaching removal criteria. Labs ok. Na normalized. Physical Exam - Physical Exam General Appearance: alert, no apparent distress Respiratory: decreased breath sounds (bases), other (blakes x 3 to bulb suction , thin mostly serous drainage) Cardiac/Chest: regular rate, rhythm, other (Sternotomy CDI. TCPWs intact.) Abdomen: non-tender, soft Skin: warm/dry Extremities: swelling (trace dependent) ICD10 Worksheet Patient Problems: Problems Problem Status Onset Acute blood loss anemia Acute CAD, multiple vessel Acute Cardiac arrest Acute S/P CABG x 6 Acute ~08/13/17 chronic disease mgmt/transitional care Acute
[2017-08-18] MEDS ORDERED: POTASSIUM Cl (KCl) 50 ML IV ONE (08:27)
[2017-08-18] MEDS ORDERED: SENNOSIDES/DOCUSATE SODIUM TAB PO PRN (09:00)
[2017-08-18] MEDS: PANTOPRAZOLE SODIUM 40 MG TAB PO SCH (09:02)
[2017-08-18] MEDS: ASPIRIN EC 81 MG TAB PO SCH (09:02)
--- NOTE | 2017-08-18 09:11 | PDINTPN ---
Tourist Information Assistant Progress Note Assessment/Plan: Assessment/plan: * Status post out of hospital cardiac arrest. Secondary to arrhythmia in the setting of underlying coronary artery disease. On amiodarone. Status post 6 vessel CABG * Status post HACA protocol. * Sternal fractures-secondary to chest compressions * Coronary artery bypass grafting x6. Did well intraoperatively. * Possible anoxic injury/encephalopathy-continues marked improvement. Currently awake and alert and oriented x3. * Acute Respiratory failure-stable off mechanical ventilation. -will add duo nebs * Possible aspiration. On Invanz. * Prophylaxis: Famotidine, SQ heparin * Nutrition: Tolerating tube feeds * PT/OT-started yesterday -will continue -begin ambulation * Out of bed to chair * Disposition-agree with rehab consultation Subjective: Sitting up in chair checked in with family. Comfortable. In good spirits. Objective: Vital Signs Temp Pulse Resp BP Pulse Ox 37.1 C 70 13 112/56 L 95 08/18/17 07:00 08/18/17 07:00 08/18/17 07:00 08/18/17 07:00 08/18/17 07:00 Laboratory Results 08/17/17 03:30 08/18/17 05:00 08/17/17 08/18/17 08/19/17 05:59 05:59 05:59 Intake Total 1422 3271 Output Total 2945 2555 Balance -1523 716 PT 14.3 SEC (12.0-15.0) 08/12/17 22:20 INR 1.09 (0.83-1.16) 08/12/17 22:20 - Time Spent With Patient Time Spent With Patient: 35 min of time spent with patient, over 1/2 involved with coordination of care or counseling Physical Exam - Physical Exam General Appearance: alert, no apparent distress EENT: PERRL/EOMI, normal ENT inspection Neck: non-tender Respiratory: rhonchi, No respiratory distress Cardiac/Chest: normal peripheral pulses, regular rate, rhythm, systolic murmur Abdomen: normal bowel sounds, non-tender, soft Male Genitalia: deferred Rectal: deferred Skin: normal color, warm/dry Extremities: normal range of motion, non-tender, normal inspection, normal capillary refill Neuro/Psych: alert, oriented x 3 ICD10 Worksheet Patient Problems: Problems Problem Status Onset Acute blood loss anemia Acute CAD, multiple vessel Acute Cardiac arrest Acute S/P CABG x 6 Acute ~08/13/17 chronic disease mgmt/transitional care Acute
--- NOTE | 2017-08-18 14:34 | ASMTCMCOM ---
CM Note CM Note Notes: Per Sweetie at Inpatient Rehab, patient qualifies. I spoke with Amelia Chaudhari who anticipates a Sunday 08/20 discharge. Inpatient Rehab needs to receive the orders and the patient before 1300 on Monday. Case Management will facilitate the transfer. Date Signed: 08/18/2017 02:34 PM Electronically Signed By:Sarah Weston RN
[2017-08-18] MEDS: LORazepam 2 MG/ML INJ IVP PRN (21:24)
[2017-08-18] MEDS: ERTAPENEM 1 GM VIAL IV SCH (23:18)
[2017-08-19] MEDS: OXYCODONE/APAP 5/325 TAB PO PRN ×2 (05:53→19:51)
[2017-08-19] MEDS: HEPARIN 5,000 UNIT/0.5 ML INJ SC SCH ×3 (05:54→23:08)
--- NOTE | 2017-08-19 07:19 | SOAPPROG ---
SOAP Progress Note Assessment/Plan: POD #6: Emergent CABGx6 (MARSHALL-LAD, SVG-diag, SVG-ramus, seq SVG-OM1/OM2, SVG-PDA ), closure with Robicsek weave, AtriClip NANCY, EVH left leg Cardiac arrest/VT with severe 3-vessel CAD s/p emergent CABGx6 - arrest in field with with CPR and ROSC. LHC shown to have severe LM stenosis with extensive CAD. IABP placed and HACA protocol initiated with favorable neurologic status after rewarming. IABP removed / without issues. Continue ASA for secondary prevention. BB/statin when appropriate. Sternal fracture secondary to CPR s/p Robicsek weave - continue sternal precautions. Acute blood loss anemia - stable s/p transfusion of 1U PRBC. VDRF/possible aspiration PNA - No respiratory issues. Prophylactic antibiotics as per pulmonology. Encephalopathy - secondary to cardiac arrest. Resolving. Continue supportive care. DVT prophylaxis - SCDs/heparin SQ Disposition- IPR Monday. Subjective: Denies pain/SOB. Objective: Vital Signs Temp Pulse Resp BP Pulse Ox 36.7 C 67 14 118/66 96 08/19/17 04:00 08/19/17 04:00 08/19/17 04:00 08/19/17 04:00 08/19/17 04:00 Laboratory Results 08/19/17 05:19 08/19/17 05:19 08/18/17 08/19/17 08/20/17 05:59 05:59 05:59 Intake Total 3271 1450 Output Total 2555 2175 450 Balance 716 -725 -450 PT 14.3 SEC (12.0-15.0) 08/12/17 22:20 INR 1.09 (0.83-1.16) 08/12/17 22:20 Physical Exam - Physical Exam General Appearance: WD/WN, alert, no apparent distress EENT: No scleral icterus (R), No scleral icterus (L) Neck: normal inspection Respiratory: No respiratory distress Cardiac/Chest: regular rate, rhythm Abdomen: non-tender, soft, No distended Skin: normal color, warm/dry Extremities: pedal edema Neuro/Psych: no motor/sensory deficits, alert, cognition abnormalities ICD10 Worksheet Patient Problems: Problems Problem Status Onset Acute blood loss anemia Acute CAD, multiple vessel Acute Cardiac arrest Acute S/P CABG x 6 Acute ~08/13/17 chronic disease mgmt/transitional care Acute
[2017-08-19] MEDS: PANTOPRAZOLE SODIUM 40 MG TAB PO SCH (08:08)
[2017-08-19] MEDS: ASPIRIN EC 81 MG TAB PO SCH (08:08)
[2017-08-19] MEDS ORDERED: FUROSEMIDE 100 MG/10 ML VIAL IVP ONE (08:34)
[2017-08-19] MEDS ORDERED: POTASSIUM CL 20 MEQ TAB PO ONE (08:34)
--- NOTE | 2017-08-19 09:25 | PDINTPN ---
Endoscopy Technician Progress Note Assessment/Plan: Assessment/plan: * Status post out of hospital cardiac arrest. Secondary to arrhythmia in the setting of underlying coronary artery disease. On amiodarone. Status post 6 vessel CABG * Status post HACA protocol. * Sternal fractures-secondary to chest compressions * Coronary artery bypass grafting x6. Did well intraoperatively. * Possible anoxic injury/encephalopathy-continues marked improvement. Currently awake and alert and oriented x3. * Acute Respiratory failure-stable off mechanical ventilation. -will add duo nebs * Possible aspiration. On Invanz. * Prophylaxis: Famotidine, SQ heparin * Nutrition: Passed swallow eval. Tolerating tube feeds * PT/OT-standing at bedside. Somewhat weak. * Out of bed to chair * Disposition-agree with rehab consultation Subjective: Sitting up in chair. Resting comfortably. Mental status continues to improve. Still weak Objective: Vital Signs Temp Pulse Resp BP Pulse Ox 36.8 C 74 14 118/57 L 94 08/19/17 07:31 08/19/17 07:31 08/19/17 07:31 08/19/17 07:31 08/19/17 07:31 Laboratory Results 08/19/17 05:19 08/19/17 05:19 08/18/17 08/19/17 08/20/17 05:59 05:59 05:59 Intake Total 3271 1450 Output Total 2555 2175 550 Balance 716 -725 -550 PT 14.3 SEC (12.0-15.0) 08/12/17 22:20 INR 1.09 (0.83-1.16) 08/12/17 22:20 - Time Spent With Patient Time Spent With Patient: 25 min of time spent with patient, over 1/2 involved with coordination of care or counseling Physical Exam - Physical Exam General Appearance: WD/WN, alert, no apparent distress EENT: PERRL/EOMI Neck: non-tender, full range of motion, supple, normal inspection Respiratory: crackles (Few basilar), No respiratory distress, No wheezing Cardiac/Chest: normal peripheral pulses, regular rate, rhythm, systolic murmur Peripheral Pulses: 2+: carotid (R), carotid (L), femoral (R), femoral (L), dorsalis-pedis (R), dorsalis-pedis (L) Abdomen: normal bowel sounds, non-tender, soft Male Genitalia: deferred Rectal: deferred Skin: normal color, warm/dry Neuro/Psych: alert, oriented x 3 ICD10 Worksheet Patient Problems: Problems Problem Status Onset Acute blood loss anemia Acute CAD, multiple vessel Acute Cardiac arrest Acute S/P CABG x 6 Acute ~08/13/17 chronic disease mgmt/transitional care Acute
[2017-08-19] MEDS ORDERED: FUROSEMIDE 100 MG/10 ML VIAL IVP SCH (15:00)
[2017-08-19] MEDS ORDERED: ACETAMINOPHEN 650 MG/20.3 ML UDCUP PO PRN (19:50)
[2017-08-19] MEDS: ORAL BALANCE GEL TUBE PO PRN (19:51)
[2017-08-19] MEDS ORDERED: PROTOCOL POTASSIUM 1 DOSE MISC PRN (21:21)
[2017-08-19] MEDS: ERTAPENEM 1 GM VIAL IV SCH (23:11)
[2017-08-20 05:12] LABS: PLATELET COUNT 246 10^3/uL (150-400)
[2017-08-20] MEDS: HEPARIN 5,000 UNIT/0.5 ML INJ SC SCH ×3 (05:28→20:10)
[2017-08-20] MEDS: OXYCODONE/APAP 5/325 TAB PO PRN ×2 (05:29→23:12)
[2017-08-20] MEDS ORDERED: POTASSIUM CL 20 MEQ TAB PO ONE (08:32)
[2017-08-20] MEDS ORDERED: POTASSIUM CL 20 MEQ TAB PO SCH (09:00)
--- NOTE | 2017-08-20 09:32 | SOAPPROG ---
SOAP Progress Note Assessment/Plan: POD #7: Emergent CABGx6 (MARSHALL-LAD, SVG-diag, SVG-ramus, seq SVG-OM1/OM2, SVG-PDA ), closure with Robicsek weave, AtriClip NANCY, EVH left leg Cardiac arrest/VT with severe 3-vessel CAD s/p emergent CABGx6 - arrest in field with with CPR and ROSC. LHC shown to have severe LM stenosis with extensive CAD. IABP placed and HACA protocol initiated with favorable neurologic status after rewarming. IABP removed 5/ without issues. Continue ASA for secondary prevention. BB/statin when appropriate. Sternal fracture secondary to CPR s/p Robicsek weave - continue sternal precautions. Acute blood loss anemia - stable s/p transfusion of 1U PRBC. VDRF/possible aspiration PNA - No respiratory issues. Prophylactic antibiotics as per pulmonology. Chest tubes to be removed today. Encephalopathy - secondary to cardiac arrest. Resolving. Continue supportive care. DVT prophylaxis - SCDs/heparin SQ Disposition- IPR possibly Monday. 08/20/17 09:32 Subjective: Denies pain/SOB. Objective: Vital Signs Temp Pulse Resp BP Pulse Ox 37.3 C 78 16 104/58 L 92 08/20/17 07:41 08/20/17 07:41 08/20/17 07:41 08/20/17 07:41 08/20/17 07:41 Laboratory Results 08/20/17 04:12 08/20/17 04:12 08/19/17 08/20/17 08/21/17 05:59 05:59 05:59 Intake Total 1450 1550 Output Total 4993 1475 Balance -725 -3405 PT 14.3 SEC (12.0-15.0) 08/12/17 22:20 INR 1.09 (0.83-1.16) 08/12/17 22:20 ICD10 Worksheet Patient Problems: Problems Problem Status Onset Acute blood loss anemia Acute CAD, multiple vessel Acute Cardiac arrest Acute S/P CABG x 6 Acute ~08/13/17 chronic disease mgmt/transitional care Acute
[2017-08-20] MEDS: POTASSIUM CL 20 MEQ TAB PO SCH (10:40)
[2017-08-20] MEDS: FUROSEMIDE 40 MG TAB PO SCH (10:40)
[2017-08-20] MEDS: PANTOPRAZOLE SODIUM 40 MG TAB PO SCH (10:40)
[2017-08-20] MEDS: ASPIRIN EC 81 MG TAB PO SCH (10:40)
--- NOTE | 2017-08-20 14:16 | ASMTCMCOM ---
CM Note CM Note Notes: Per Marc [facility] for [facility], discharge is delayed until tomorrow. Spoke with inpatient rehab who reports the patient will need to be re-evaulated. CM to follow, Message left with Sweetie Leo. Plan: To INPT rehab. Date Signed: 08/20/2017 02:15 PM Electronically Signed By:Pilar Klein RN
--- NOTE | 2017-08-20 15:18 | SOAPPROG ---
SOAP Progress Note Assessment/Plan: Assessment/plan: * Status post out of hospital cardiac arrest. Secondary to arrhythmia in the setting of underlying coronary artery disease. On amiodarone. Status post 6 vessel CABG * Status post HACA protocol. * Sternal fractures-secondary to chest compressions * Coronary artery bypass grafting x6. Did well intraoperatively. * Possible anoxic injury/encephalopathy-continues marked improvement. Currently awake and alert and oriented x3. * Acute Respiratory failure-stable -will add duo nebs * Possible aspiration. On Invanz. -will replace with Augmentin 875 mg twice daily for 5 more days * Prophylaxis: Famotidine, SQ heparin * Nutrition: Passed swallow eval. Tolerating tube feeds * PT/OT-standing at bedside. Somewhat weak. * Out of bed to chair * Disposition-agree with rehab soon 0 Subjective: Resting comfortably. Conversant. Alert and oriented x3. Objective: Vital Signs Temp Pulse Resp BP Pulse Ox 37.1 C 84 16 106/66 90 L 08/20/17 11:37 08/20/17 11:37 08/20/17 11:37 08/20/17 11:37 08/20/17 11:37 Laboratory Results 08/20/17 04:12 08/20/17 04:12 08/19/17 08/20/17 08/21/17 05:59 05:59 05:59 Intake Total 1450 1550 950 Output Total 2175 4955 300 Balance -725 -3405 650 PT 14.3 SEC (12.0-15.0) 08/12/17 22:20 INR 1.09 (0.83-1.16) 08/12/17 22:20 - Time Spent With Patient Time Spent With Patient: 25 min of time spent with patient over 1/2 involved with coordination of care or counseling Physical Exam - Physical Exam General Appearance: WD/WN, alert, no apparent distress EENT: PERRL/EOMI Neck: non-tender, full range of motion, supple, normal inspection Respiratory: crackles (Few basilar), No wheezing Cardiac/Chest: normal peripheral pulses, regular rate, rhythm, systolic murmur Peripheral Pulses: 2+: carotid (R), carotid (L), femoral (R), femoral (L), dorsalis-pedis (R), dorsalis-pedis (L) Abdomen: normal bowel sounds, non-tender, soft Male Genitalia: deferred Rectal: deferred Extremities: normal range of motion, non-tender, normal inspection, normal capillary refill Neuro/Psych: no motor/sensory deficits, alert, normal mood/affect, oriented x 3 ICD10 Worksheet Patient Problems: Problems Problem Status Onset Acute blood loss anemia Acute CAD, multiple vessel Acute Cardiac arrest Acute S/P CABG x 6 Acute ~08/13/17 chronic disease mgmt/transitional care Acute
[2017-08-20] MEDS: AMOXICILLIN/CLAVULANATE POT 875/125 MG TAB PO SCH (20:10)
[2017-08-21] MEDS: OXYCODONE/APAP 5/325 TAB PO PRN ×2 (05:06→20:56)
[2017-08-21] MEDS: HEPARIN 5,000 UNIT/0.5 ML INJ SC SCH ×3 (05:11→21:01)
--- NOTE | 2017-08-21 06:52 | SOAPPROG ---
SOAP Progress Note Assessment/Plan: POD #8: Emergent CABGx6 (MARSHALL-LAD, SVG-diag, SVG-ramus, seq SVG-OM1/OM2, SVG-PDA ), closure with Robicsek weave, AtriClip NANCY, EVH left leg Cardiac arrest/VT with severe 3-vessel CAD s/p emergent CABGx6 - arrest in field with with CPR and ROSC. LHC shown to have severe LM stenosis with extensive CAD. IABP placed and HACA protocol initiated with favorable neurologic status after rewarming. IABP removed / without issues. Continue ASA for secondary prevention. BB/statin when appropriate. Sternal fracture secondary to CPR s/p Robicsek weave - continue sternal precautions. Acute blood loss anemia - stable s/p transfusion of 1U PRBC. VDRF/possible aspiration PNA - No respiratory issues. Prophylactic antibiotics as per pulmonology. CT chest today for left chest opacity and elevated WBC to r/ o loculated effusion. Encephalopathy - secondary to cardiac arrest. Resolving. Continue supportive care. DVT prophylaxis - SCDs/heparin SQ Disposition- [facility] once medically stable. Subjective: Denies weakness/pain/SOB. Objective: Vital Signs Temp Pulse Resp BP Pulse Ox 37.0 C 82 20 120/70 94 08/21/17 04:00 08/21/17 04:00 08/21/17 04:00 08/21/17 04:00 08/21/17 04:00 Laboratory Results 08/21/17 03:30 08/21/17 03:30 08/20/17 08/21/17 08/22/17 05:59 05:59 05:59 Intake Total 1550 1700 Output Total 4955 1950 Balance -3405 -250 PT 14.3 SEC (12.0-15.0) 08/12/17 22:20 INR 1.09 (0.83-1.16) 08/12/17 22:20 Physical Exam - Physical Exam General Appearance: WD/WN, alert, no apparent distress EENT: No scleral icterus (R), No scleral icterus (L) Neck: normal inspection Respiratory: No respiratory distress Cardiac/Chest: regular rate, rhythm Abdomen: non-tender, soft, No distended Skin: normal color, warm/dry Extremities: No pedal edema Neuro/Psych: no motor/sensory deficits, alert, cognition abnormalities ICD10 Worksheet Patient Problems: Problems Problem Status Onset Acute blood loss anemia Acute CAD, multiple vessel Acute Cardiac arrest Acute S/P CABG x 6 Acute ~08/13/17 chronic disease mgmt/transitional care Acute
[2017-08-21] MEDS: AMOXICILLIN/CLAVULANATE POT 875/125 MG TAB PO SCH ×2 (08:10→20:56)
[2017-08-21] MEDS: ASPIRIN EC 81 MG TAB PO SCH (08:10)
[2017-08-21] MEDS: PANTOPRAZOLE SODIUM 40 MG TAB PO SCH (08:10)
[2017-08-21] MEDS: FUROSEMIDE 40 MG TAB PO SCH (08:11)
[2017-08-21] MEDS: POTASSIUM CL 20 MEQ TAB PO SCH (08:11)
[2017-08-21] MEDS ORDERED: POTASSIUM CL 10 MEQ TAB PO ONE ×2 (08:27→14:00)
--- NOTE | 2017-08-21 10:47 | ASMTCMCOM ---
CM Note CM Note Notes: 08/21/2017 Case Management Note Discussed pt with Marc Valdez. WBC continues to climb. Plan for chest CT today. Notified Sweetie at Inpatient Rehab. Sweetie to follow along and reassess as pt nears d/c date. Case Management to follow. Date Signed: 08/21/2017 10:46 AM Electronically Signed By:Korin Hartman RN
[2017-08-22] MEDS: HEPARIN 5,000 UNIT/0.5 ML INJ SC SCH ×2 (06:20→14:00)
[2017-08-22] MEDS: OXYCODONE/APAP 5/325 TAB PO PRN ×2 (06:24→20:13)
--- NOTE | 2017-08-22 06:57 | SOAPPROG ---
SOAP Progress Note Assessment/Plan: POD #9: Emergent CABGx6 (MARSHALL-LAD, SVG-diag, SVG-ramus, seq SVG-OM1/OM2, SVG-PDA ), closure with Robicsek weave, AtriClip NANCY, EVH left leg Cardiac arrest/VT/cardiogenic shock/severe 3-vessel CAD/NSTEMI/metabolic acidosis s/p emergent CABGx6 - arrest in field with with CPR and ROSC. C shown to have severe LM stenosis with extensive CAD. IABP placed and HACA protocol initiated with favorable neurologic status after rewarming. IABP removed 5/ without issues. Continue ASA for secondary prevention. BB/statin when appropriate. Sternal/rib fractures secondary to CPR s/p Robicsek weave - continue sternal precautions. Acute blood loss anemia - stable s/p transfusion of 1U PRBC. Acute hypercarbic and hypoxic respiratory failure/respiratory acidosis/possible aspiration PNA/atelectasis - No respiratory issues. Continue prophylactic Augmentin, total 5 days. Encephalopathy - secondary to cardiac arrest. Resolving. Continue supportive care. DVT prophylaxis - SCDs/heparin SQ Disposition- SNF once medically stable. Subjective: No complaints. Objective: Vital Signs Temp Pulse Resp BP Pulse Ox 36.9 C 73 14 102/60 94 08/22/17 03:09 08/22/17 03:09 08/22/17 03:09 08/22/17 03:09 08/22/17 03:09 Laboratory Results 08/22/17 03:06 08/22/17 03:06 08/21/17 08/22/17 08/23/17 05:59 05:59 05:59 Intake Total 1700 900 Output Total 1950 1695 Balance -250 -795 PT 14.3 SEC (12.0-15.0) 08/12/17 22:20 INR 1.09 (0.83-1.16) 08/12/17 22:20 Physical Exam - Physical Exam General Appearance: WD/WN, alert, no apparent distress EENT: No scleral icterus (R), No scleral icterus (L) Neck: normal inspection Respiratory: No normal breath sounds Cardiac/Chest: regular rate, rhythm Abdomen: non-tender, soft, No distended Skin: normal color, warm/dry Extremities: No pedal edema Neuro/Psych: no motor/sensory deficits, alert, cognition abnormalities ICD10 Worksheet Patient Problems: Problems Problem Status Onset Acute blood loss anemia Acute CAD, multiple vessel Acute Cardiac arrest Acute S/P CABG x 6 Acute ~08/13/17 chronic disease mgmt/transitional care Acute
[2017-08-22] MEDS ORDERED: POTASSIUM CL 10 MEQ TAB PO ONE (07:34)
[2017-08-22] MEDS: ASPIRIN EC 81 MG TAB PO SCH (08:14)
[2017-08-22] MEDS: POTASSIUM CL 20 MEQ TAB PO SCH (08:14)
[2017-08-22] MEDS: FUROSEMIDE 40 MG TAB PO SCH (08:14)
[2017-08-22] MEDS: AMOXICILLIN/CLAVULANATE POT 875/125 MG TAB PO SCH ×2 (08:14→20:13)
[2017-08-22] MEDS: PANTOPRAZOLE SODIUM 40 MG TAB PO SCH (08:15)
--- NOTE | 2017-08-22 17:15 | ASMTCMCOM ---
CM Note CM Note Notes: 08/22/2017 Case Management Note Phone call from Sweetie that pt is accepted to inpatient rehab. Notified pt. Anticipating d/c tomorrow per Marc. Case Management d/c poc: to Inpatient Rehab Case Management to follow. Date Signed: 08/22/2017 03:03 PM Electronically Signed By:Korin Hartman RN
[2017-08-22] MEDS ORDERED: ATORVASTATIN CALCIUM 10 MG TAB PO SCH (21:00)
--- NOTE | 2017-08-23 07:59 | SOAPPROG ---
SOAP Progress Note Assessment/Plan: Assessment: POD#10 Urgent CABGx6 (MARSHALL-LAD, SVG-Dx, SVG-RI, SVG seq OM1 to OM2, SVG-PDA), closure with Robicsek weave, AtriClip NANCY, EVH LLE. VT cardiac arrest/NSTEMI with severe 3-vessel CAD - Arrest in field with CPR/ AED and ROSC. Shown to have severe LM stenosis with extensive CAD and preserved LV systolic fx. IABP placed and HACA protocol initiated with stabilization of cardiogenic shock. Favorable neurologic status after rewarming and urgent CABGx6 undertaken. IABP removed POD#1. No prolonged pressor support. Secondary prevention with ASA, BB and statin. Sternal/rib fractures secondary to CPR - Sternum stabilized with Robicsek weave. Strict sternal precautions x 6 wks. Acute expected blood loss anemia - Stable s/p transfusion of 1U PRBC. VTE prophylaxis with SQ hep/SCDs. Acute hypercarbic and hypoxic respiratory failure/respiratory acidosis/possible aspiration PNA/atelectasis - Doreen-arrest. Extubated POD#1 without incident. No dysphagia and diet advanced by [employer]. Prophylactic antibiotics as per pulmonology. Encephalopathy - secondary to cardiac arrest/anoxic injury. Resolving with supportive care. Skilled for IPR for ongoing rehab. Plan: Ok for discharge to IPR. Instructions re diet, meds, activity, wound care and f/u to be reviewed in presence of . 08/23/17 07:59 Subjective: In good spirits. Improving attention, memory and mobility. Objective: Vital Signs Temp Pulse Resp BP Pulse Ox 37.5 C 78 15 132/57 H 89 L 08/23/17 07:43 08/23/17 07:43 08/23/17 07:43 08/23/17 07:43 08/23/17 07:43 Laboratory Results 08/23/17 03:18 08/23/17 03:18 08/22/17 08/23/17 08/24/17 05:59 05:59 05:59 Intake Total 900 1450 500 Output Total 1695 1600 Balance -795 -150 500 PT 14.3 SEC (12.0-15.0) 08/12/17 22:20 INR 1.09 (0.83-1.16) 08/12/17 22:20 Cardioresp status stable. Almost off O2. WBC cont to fall. Physical Exam - Physical Exam General Appearance: alert, no apparent distress Respiratory: crackles (bases), other (Excellent insp effort) Cardiac/Chest: regular rate, rhythm, other (Sternum grossly stable. Sternotomy and CT sites healing well.) Abdomen: non-tender, soft Skin: warm/dry Extremities: swelling (trace - 1+ dependent), other (LLE venotomy CDI) ICD10 Worksheet Patient Problems: Problems Problem Status Onset Acute blood loss anemia Acute CAD, multiple vessel Acute Cardiac arrest Acute S/P CABG x 6 Acute ~08/13/17 chronic disease mgmt/transitional care Acute
[2017-08-23] MEDS ORDERED: ENOXAPARIN 40 MG/0.4 ML SYR SC SCH (09:00)
[2017-08-23] MEDS ORDERED: METOPROLOL TARTRATE 25 MG TAB PO SCH (09:00)
[2017-08-23] MEDS: AMOXICILLIN/CLAVULANATE POT 875/125 MG TAB PO SCH (10:31)
[2017-08-23] MEDS: PANTOPRAZOLE SODIUM 40 MG TAB PO SCH (10:32)
[2017-08-23] MEDS: FUROSEMIDE 40 MG TAB PO SCH (10:32)
[2017-08-23] MEDS: ASPIRIN EC 81 MG TAB PO SCH (10:32)
[2017-08-23] MEDS: POTASSIUM CL 20 MEQ TAB PO SCH (10:32)
[2017-08-23] MEDS: OXYCODONE/APAP 5/325 TAB PO PRN (10:37)
[2017-08-23 10:59] VITALS: BP 127/67
--- NOTE | 2017-08-23 11:53 | PDIAF ---
- Diagnosis Diagnosis: anoxic encephalopathy and deconditioning s/p cardiac arrest and CABG Code Status: Full Code - Medication Management Discharge Medications: Medications to Continue on Transfer Aspirin EC [Aspirin EC 81 mg (*)] 81 mg PO DAILY 08/11/17 [Last Taken Unknown] Multivitamin (*) 1 tab PO DAILY 08/11/17 [Last Taken Unknown] Simvastatin 20 mg PO DAILY 08/11/17 [Last Taken Unknown] Acetaminophen [Tylenol 650/20.3ML Oral Liq (*)] 650 mg PO Q4HRS PRN udcup 08/23 [Last Taken Unknown] Amoxicillin/Clavulanate Pot [Augmentin 875 MG TAB (*)] 875 mg PO BID #5 tab [Last Taken Unknown] Enoxaparin [Lovenox 40 MG (*)] 40 mg SC DAILY syr 08/23/17 [Last Taken Unknown] Furosemide [Lasix 40 MG (*)] 40 mg PO DAILY tab 08/23/17 [Last Taken Unknown] Ipratropium/Albuterol [Duoneb (*)] 3 ml IH Q6HRS PRN deyvial 08/23/17 [Last Taken Unknown] Metoprolol Tartrate [Lopressor 25 mg (*)] 12.5 mg PO BID tab 08/23/17 [Last Taken Unknown] Polyethylene Glycol 3350 [Miralax 17 gm (*)] 17 gm PO DAILY PRN pkt 08/23/17 [ Last Taken Unknown] Potassium Cl [Klor-Con 20 meq (*)] 20 meq PO DAILY tab 08/23/17 [Last Taken Unknown] Sennosides/Docusate Sodium [Senokot-S] 1 tab PO BID PRN tab 08/23/17 [Last Taken Unknown] oxyCODONE/APAP 5/325 [Percocet 5/325 (*)] 1 - 2 tab PO Q4HRS PRN tab 08/23/17 [ Last Taken Unknown] Additional Medication Instructions: Augmentin stop date of 08/25 Discharge Medications: Refer to the Discharge Home Medication list for PRN reason. PICC Care - Routine: N/A - Orders Services needed: Registered Nurse, Physical Therapy, Occupational Therapy, Speech Language Pathologist Isolation Type: None Oxygen: prn SpO2 < 90% Diet Recommendation: cardiac -low fat low salt Diet Texture: Regular Texture Diet, Thin Liquids, Meds Whole w/Liquids Weigh Patient: daily Oliva: Not applicable Wound Care Instructions: daily soap and water. ok to leave all wounds open to air. avoid ointments or underwater immersion until all scabs off Activity/Weight Bearing Restrictions: Sternal precautions x 4 more weeks. Avoid push pull activities. Avoid lifting > 10 lbs with an outstretched arm Additional Instructions: Call [facility] cardiac rehab to enroll in phase 2 classes if return to home state not directly after release from inpatient rehab. Sternal/rib precautions x 4 more weeks. Avoid lifting > 10lbs with an outstretched arm. Avoid push/pull activities. Cleanse wounds once daily with soap and water. Avoid underwater immersion (pool , hot tub, bath) until scabs off. Ok to leave all wounds open to air. Avoid creams or ointments until scabs off. Elevate low legs at rest. Avoid prolonged standing or dangling. Log daily vital signs: weight, resting heart rate over 1 minute, blood pressure , +/- pulse oximetry. Call [facility] for overnight weight gain > 2lbs, weekly gain > 5lbs or worsening leg swelling. Call [facility] for resting heart rate > 120 or < 60 OR for systolic blood pressure consistently < 90 or > 140. Target oxygen saturation > 89%. Adjustments per rehab. Please obtain a chest xray prior to surgical appointment. Use requisition form attached to appointment card. Chest x-rays don't require an appointment. Go to the Emergency Room entrance at the [facility] location. Sign in at the computer kiosk in the entryway. You will be given a number and may sit in the waiting area until called. You will be registered and directed to the Imaging desk on the 1st floor. This process can take up to an hour. Allow at least 30 min before your appointment to get x-ray taken. Ok to use [id number] medications for iron supplementation, bowel function or pain. Max daily dose of Tylenol 3000 mg. Avoid use of nonsteroidal anti-inflammatories (ie. ibuprofen, advil, motrin) x 3 mo for interference with beneficial effects of aspirin on graft flow. - Labs/Radiology CMP Date: 08/28/17 Imaging Orders: CXR prior to surgical appointment - Follow Up Care Current Providers and Referrals: Don Chow DO [Doctor of Osteopathy] - 08/29/17 2:30 pm Patient,NotPresent [Unknown] - As per Instructions
--- NOTE | 2017-08-23 16:26 | ASDISCHSUM ---
Discharge Information Plan Status:Inpatient Rehab Medically Cleared to Leave:08/23/2017 Discharge Date:08/23/2017 02:30 PM CM D/C Disposition: ADT D/C Disposition:[facility] IP Projected Discharge Date:08/23/2017 12:00 AM Transportation at D/C: Discharge Delay Reason: Follow-Up Date:08/23/2017 12:00 AM Discharge Slot: Final Diagnosis: Placement Information Referral Type:Rehabilitation Hospital Referral ID:[id number] Provider Name:[facility] Inpatient Rehab Address 1:[address] Phone Number: Address 2: Fax Number: [facility]:[place] Selection Factors: State:[place] Referral Type:Rehabilitation Hospital Referral ID:[id number] Provider Name: Address 1: Phone Number: Address 2: Fax Number: City: Selection Factors: State: Patient Contact Information Contact Name:IRENA Relationship: Address:[address] Work Phone: City:[place] Alternate Phone: State/Zip Code:[place] [address] Email: Financial Information Financial Class:Medicare Primary Plan Desc:MEDICARE INPATIENT Primary Plan Number:[id number] Secondary Plan Desc:[employer] [facility] Secondary Plan Number:[id number] Assessment Information [facility] Initial CM Assessment Living Arrangements What is your living Answers: With Spouse arrangement? Who do you live with? Type Of Residence What kind of residence do Answers: House you live in? Type of Residence Facility Name Notes: Patient was visiting from [place]. He and his family were in [place] when patient had a cardiac arrest. He was brought to [facility] post cardiac arrest and HACA protocol was begun. Discharge Plan Comments Coordination Status Comments Notes: Patient is a 77yo male who was helicoptered from [place] to [facility] after a cardiac arrest. Paramedics restored spontaneous respiration with a single automatic external defibrillator. Patient was intubated on route. HACA protocol intiated here at [facility]. Patient is a candidate for coronary bypass surgery if he demonstrates reasonable neurologic salvage. No therapies ordered at this time. D/C plan TBD. CM will follow. Date Signed: 08/11/2017 12:47 PM Electronically Signed By:Collette Tolentino AIRCRAFT ARMAMENT MECHANIC [facility] Progress Note CM Note CM Note Notes: POD#1 CABG x 6, Sternal fx-CPR, Haca off, vented, possible asp. Trying to wean off vent. CM to follow. Date Signed: 08/14/2017 02:43 PM Electronically Signed By:Caren Martino LCSW [facility] Progress Note CM Note CM Note Notes: A family meeting was held today on behalf of the patient. In attendance were: Juliana, patient's , Marika, patient's daughter, 2 friends that were traveling with him when he came to [place], Domingo and Lashaun Chang, nurse program project manager, Dmitry, spiritual care and myself from case management. The family had just met with Dr. Chow and some of the conversation they were unprepared for. Patient's Juliana was emotional from trying to process the information. The family would like to talk to a neurologist as well as they feel this is a big part of the picture in care and recovery. Lashaun will make arrangements for this. Juliana and Kathryn describe the patient as an active, engaged extremely intelligent man. Per family and friends he has always enjoyed good health with the exception of a knee replacement and recently a detached retina. 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 Patient's first from cancer. 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 Dr. Chow had mentioned LTAC for next level of care but the family has requested we have d/c discussion on another day as they are overwhelmed today.Juliana was given paperwork for advanced directive and states patient had named her as his MDPLONDON but they can't find the paperwork which is in [place]. Due to daughter and friends all being in agreement with Juliana,patient's being MDPLONDON, verbal designation will do for now. Juliana and Kathryn plan to review and fill out the advanced directive for patient's chart. Family was informed they can have family meetings on Mondays, Tuesdays and should they need another meeting. They were all encouraged to take care of themselves and make sure they are getting rest and nutrition during this time. Juliana has not left the hospital since the initial event, but plans to go to a hotel room this evening as she is exhausted emotionally and physically. The family was appreciative of the opportunity to have their questions answered and get support. CM will follow. Date Signed: 08/16/2017 02:07 PM Electronically Signed By:Collette Tolentino LCSW [facility] Progress Note CM Note CM Note Notes: Per Sweetie at Inpatient Rehab, patient qualifies. I spoke with Amelia Chaudhari who anticipates a Sunday 08/20 discharge. Inpatient Rehab needs to receive the orders and the patient before 1300 on Monday. Case Management will facilitate the transfer. Date Signed: 08/18/2017 02:34 PM Electronically Signed By:Sarah Weston RN [facility] CM Progress Note CM Note CM Note Notes: Per Marc MAIN for [facility], discharge is delayed until tomorrow. Spoke with inpatient rehab who reports the patient will need to be re-evaulated. CM to follow, Message left with Sweetie Bailey. Plan: To INPT rehab. Date Signed: 08/20/2017 02:15 PM Electronically Signed By:Pilar Klein RN [facility] CM Progress Note CM Note CM Note Notes: 08/21/2017 Case Management Note Discussed pt with Marc Valdez. WBC continues to climb. Plan for chest CT today. Notified Sweetie at Inpatient Rehab. Sweetie to follow along and reassess as pt nears d/c date. Case Management to follow. Date Signed: 08/21/2017 10:46 AM Electronically Signed By:Korin aHrtman RN [facility] CM Progress Note CM Note CM Note Notes: 08/22/2017 Case Management Note Phone call from Sweetie that pt is accepted to inpatient rehab. Notified pt. Anticipating d/c tomorrow per Case Management d/c poc: to Inpatient Rehab Case Management to follow. Date Signed: 08/22/2017 03:03 PM Electronically Signed By:Korin Hartman RN Case Management Discharge Plan Note Case Management Discharge Discharge Order Complete? Answers: Yes Patient to Obtain Answers: Other Notes: [facility] Inpatient Rehab Medications Transportation Arranged Answers: Other Notes: [facility] wheelchair EMTALA Complete Answers: No Case Management Transport Answers: Yes Form Complete Faxed Final Orders Answers: Yes Agency/Facility Transfer Answers: Yes Report Printed & Faxed to Receiving Agency Family Notified Answers: Yes Discharge Comments Notes: CM met w/ pt and for dispo planning. Pt is being discharged today to Inpatient Rehab. CM notified Sweetie at Inpatient Rehab. Pt and will pay for transport through [facility]. CM provided DEVAN Howard w/ phone number to give report. CM available for changes. Plan: [facility] Inpatient Rehab Date Signed: 08/23/2017 12:55 PM Electronically Signed By:JITENDRA Aviles Intervention Information Intervention Type:*IM-Signed Date of Service:08/23/2017 02:10 PM Patient Type:Inpatient Staff Member:Astrid Sabillon Hours: Discipline: Severity: Comment:
--- NOTE | 2017-08-23 16:42 | PDDCSUM ---
Discharge Summary Discharge Summary: DATE OF ADMISSION: 08/10/17 DATE OF DISCHARGE: 08/23/17 DISPOSITION: Transferred to [facility] inpatient rehab PRINCIPAL DISCHARGE DIAGNOSES: 1. Out of hospital cardiac arrest secondary to non ST elevation myocardial infarction, ventricular arrhythmia and severe multivessel coronary artery disease 2. Cardiogenic shock secondary to arrest 3. Acute respiratory failure secondary to arrest 4. Anoxic encephalopathy secondary to arrest 5. Sternal and multiple anterior rib fractures secondary to chest compressions 6. Status post coronary artery bypass grafting x 6 7. Status post prophylactic clip exclusion of the left atrial appendage 8. Acute expected blood loss anemia FOLLOW UP APPOINTMENTS: 1. CV surgery: with Dr Chow at [facility] on 08/29 at 2:30 pm. 2. Cardiology: with Dr Vincent at [facility] prior to return to [place] if desired. FOLLOW UP TESTIN. CMP on 08/28. 2. CXR prior to surgical appointment. ALLERGIES/SENSITIVITIES: NKDA DISCHARGE MEDICATIONS: see medical administration record for full details As on admission (ASA, MVI, Simvastatin) with the following NEW prescriptions: 1. Augmentin 875 mg BID thru 08/25 2. Lovenox 40 mg SC daily until actively mobile 3. Lasix 40 mg daily 4. Klor-Con 20 meq daily 5. Metoprolol 12.5 mg BID 6. Oxygen continuously at 1 Lpm or as directed by SpO2 7. Percocet 5/325 one to two tabs q 4h prn incisional discomfort CONSULTANTS: Pulmonology/critical care (Jose), Cardiology (Carlton), CV surgery (Claudine) PROCEDURES/IMAGIN/3 (Cora): Transthoracic echocardiogram: Nl LV cavity size. Anteroseptal, apicoseptal and apical inferior hypokinesis. LVEF 40-45%. Nl RV systolic fx. Nl sized atria. No /AI. Trivial MR. Mild TR. PASP 60. No pericardial effusion. 08/10 (Carlton): Emergent left heart catheterization with selective coronary angiography, left ventriculogram, intra aortic balloon pump insertion, and hypothermia catheter insertion. Findings: critical distal left main stenosis, occluded ostial LAD with distal reconstitution by right to left collaterals, 80 % prox LCX stenosis, 80% proximal RCA stenosis, LVEF 55%. 08/13 (Claudine): Emergent coronary artery bypass grafting x 6 (MARSHALL-LAD, SV-Dx, SV- RI, SV sequentially to OM1-OM2, SV-PDA). Take down left internal mammary artery. Endoscopic vein harvest left leg. Sternal closure with Robicsek weave. Prophylactic AtriClip ligation of the left atrial appendage. HISTORY OF PRESENT ILLNESS: 77 yo male visitor from [place] air lifted from [place] to [facility] after field resuscitation of ventricular arrhythmia induced cardiac arrest. Hemodynamic stability achieved during transport with intubation, intravenous amiodarone, and IVF. Taken emergently to the pit laborer where found to have severe left main and multivessel CAD not amenable to percutaneous intervention. No associated LVSD or significant valvular dysfx. Cardiac enzymes consistent with NSTEMI. Optimized coronary and end organ perfusion achieved with IABP and pressors. Neurologic protection achieved with targeted temperature management protocol. Prophylactic Ertapenem initiated for possible aspiration pneumonitis. Neurologic viability suspected upon rewarming and taken emergently to the OR for CABG. PERTINENT PAST MEDICAL HISTORY: Dyslipidemia ABBREVIATED POSTOPERATIVE COURSE BY ACTIVE PROBLEM LIST: 1. Cardiac arrest/NSTEMI with severe CAD - Successfully revascularized after HACA rewarming. IABP removed POD#1. No prolonged pressor support. Secondary prevention with ASA, BB and statin. 2. Sternal/rib fractures secondary to CPR - Sternum stabilized with Robicsek weave. Reduction of multiple displaced bilateral rib fractures deferred. Strict sternal precautions x 6 wks. 3. Acute expected blood loss anemia - Stable s/p transfusion of 1u PRBC. H/H > 10/30 maintained. 4. Acute respiratory failure/possible aspiration PNA - Doreen-arrest. Extubated POD#1 without incident. Steady reduction in supplemental oxygen requirement. No dysphagia and diet quickly advanced by TEXTILE DESIGNER. Prophylactic antibiotics transitioned to oral regimen. 5. Encephalopathy - Secondary to cardiac arrest/anoxic injury. Primarily memory and attention deficits. Skilled for [facility] for ongoing rehab.
== END 2017-08-23 14:30 | DRG 215 ==
LOC: F2N 21:24 → F2W 08-19 17:50
PROVIDERS: ADMIT Internal Medicine; ATTEND Thoracic Surgery (Cardiothoracic Vascular Surgery)
PROC: 4A023N7 Measurement of Cardiac Sampling and Pressure, Left Heart, Percutaneous Approach (ICD-10-PCS; 2017-08-10)
PROC: B2151ZZ Fluoroscopy of Left Heart using Low Osmolar Contrast (ICD-10-PCS; 2017-08-10)
PROC: B2111ZZ Fluoroscopy of Multiple Coronary Arteries using Low Osmolar Contrast (ICD-10-PCS; 2017-08-10)
PROC: 02HA3RZ Insertion of Short-term External Heart Assist System into Heart, Percutaneous Approach (ICD-10-PCS; 2017-08-10)
PROC: 06H033Z Insertion of Infusion Device into Inferior Vena Cava, Percutaneous Approach (ICD-10-PCS; 2017-08-10)
PROC: 5A02210 Assistance with Cardiac Output using Balloon Pump, Continuous (ICD-10-PCS; 2017-08-10)
PROC: 5A1945Z Respiratory Ventilation, 24-96 Consecutive Hours (ICD-10-PCS; 2017-08-10)
PROC: 5A1221Z Performance of Cardiac Output, Continuous (ICD-10-PCS; principal; 2017-08-12)
PROC: 02L70CK Occlusion of Left Atrial Appendage with Extraluminal Device, Open Approach (ICD-10-PCS; principal; 2017-08-12)
PROC: 021309W Bypass Coronary Artery, Four or More Arteries from Aorta with Autologous Venous Tissue, Open Approach (ICD-10-PCS; principal; 2017-08-12)
PROC: 06BQ4ZZ Excision of Left Saphenous Vein, Percutaneous Endoscopic Approach (ICD-10-PCS; principal; 2017-08-12)
PROC: 02100Z9 Bypass Coronary Artery, One Artery from Left Internal Mammary, Open Approach (ICD-10-PCS; principal; 2017-08-12)
PROC: 30233N1 Transfusion of Nonautologous Red Blood Cells into Peripheral Vein, Percutaneous Approach (ICD-10-PCS; 2017-08-14)
DX: I21.4 Non-ST elevation (NSTEMI) myocardial infarction (principal); I46.2 Cardiac arrest due to underlying cardiac condition; I47.2 Ventricular tachycardia; R57.0 Cardiogenic shock; J96.01 Acute respiratory failure with hypoxia; J96.02 Acute respiratory failure with hypercapnia; G93.40 Encephalopathy, unspecified; S22.20XA Unspecified fracture of sternum, initial encounter for closed fracture; S22.43XA Multiple fractures of ribs, bilateral, initial encounter for closed fracture; X58.XXXA Exposure to other specified factors, initial encounter; D62 Acute posthemorrhagic anemia; I25.10 Atherosclerotic heart disease of native coronary artery without angina pectoris; I50.32 Chronic diastolic (congestive) heart failure; N17.9 Acute kidney failure, unspecified; E87.4 Mixed disorder of acid-base balance; E78.5 Hyperlipidemia, unspecified; Z87.891 Personal history of nicotine dependence
CPT/HCPCS: 80307; 82947-QW; 85520-90; 92507-GN; 92523-GN; 92610-GN; 96365; 97116-GP; 97162-GP; 97166-GO; 97530-GO; 97530-GP; 97535-GO; G0480; G8978-GP-CN; G8979-GP-CL; G8987-GO-CN; G8988-GO-CK; G8996-GN-CI; G8997-GN-CI; J0153; J0171; J0282; J0610; J0690; J1100; J1265; J1335; J1630; J1644; J1650; J1815; J1940; J2001; J2060; J2150; J2250; J2260; J2270; J2370; J2405; J2440; J2704; J2720; J2930; J3010; J3475; J3480; J7060; J7613; P9016; P9041; Q9967

== ENCOUNTER 2017-08-20 14:34 | Inpatient (IN) | payer OTHER, BC ==
[2017-08-23] MEDS ORDERED: ACETAMINOPHEN 650 MG/20.3 ML UDCUP PO PRN (15:38)
[2017-08-23] MEDS ORDERED: IPRATROPIUM/ALBUTEROL 3 ML DEYVIAL IH PRN (15:39)
[2017-08-23] MEDS ORDERED: POLYETHYLENE GLYCOL 3350 17 GM PKT PO PRN (15:39)
[2017-08-23] MEDS ORDERED: SENNOSIDES/DOCUSATE SODIUM TAB PO PRN (15:39)
--- NOTE | 2017-08-23 17:23 | GHP ---
[f rep st] HISTORY AND PHYSICAL POST ADMISSION PHYSICIAN EVALUATION AND REHABILITATION TREATMENT PLAN DATE OF ADMISSION: 08/23/2017 DATE OF EVALUATION: 08/23/2017 TIME OF EVALUATION: 1540 REFERRING FACILITY: [facility]. IMPAIRMENT GROUP: 2.1. DATE OF ONSET: 08/10/2017 REFERRING PROVIDER: Amelia Chaudhari, PAC for Dr. Don Chow, cardiothoracic surgery. REHABILITATION DIAGNOSIS: Hypoxic ischemic encephalopathy, status post cardiac arrest and status post coronary artery bypass grafting 6 vessels. CONSULTING PHYSICIANS: He was seen in consultation by the hospitalist service, Dr. Vickers and Pulmonary and critical Care, Dr. Garcia. ETIOLOGIC DIAGNOSIS: Nontraumatic brain dysfunction. DATE OF SURGERY: 08/13/2017 HISTORY OF PRESENT ILLNESS: This patient suffered a ventricular tachycardia cardiac arrest and non-ST elevation WA on 08/10/2017. He was driving in [employer] at the time and felt ill, so he pulled over. He received CPR for approximately 25 minutes by initially his family, and subsequently, a parking inspector. He had defibrillation and intubation in the field. He was placed on hypothermia after cardiac arrest protocol. He came to [facility] where cardiac catheterization noted occlusion of the left main artery, as well as the LAD and collaterals. He was placed on an intra-aortic balloon pump. He had preserved systolic function with an ejection fraction of 50%. On 08/13/2017, he had a coronary artery bypass of 6 vessels. He was noted to have multiple sternal and rib fractures. He had anemia and required transfusions. He was thought to have possible aspiration pneumonia, which was treated with antibiotics. He was noted to have cognitive and functional impairments consistent with hypoxic ischemic encephalopathy. He was medically stabilized and ready for inpatient rehabilitation. LABORATORY/IMAGING: There were many labs and studies in the hospital. Chest CT on 08/21/2017, showed postsurgical changes, sternal and rib fractures, and a loculated effusion not amenable to thoracentesis in the left lower lobe. Most recent laboratory studies included a basic metabolic profile on 2017. He had an elevated BUN of 24, creatinine was 0.9. Renal function and electrolytes were otherwise within normal limits. Liver function tests were consistent with possible shock liver with a slightly elevated AST at 79, ALT was normal at 69. These were on 08/12/2017. Troponin-I initially 1.64 and increased to 4.7, subsequently decreased to 2.96. Creatine kinase was 742 initially and increased to 1015 and was consistent with myocardial tissue. Lipid panel showed a cholesterol of 113, LDL of 65, and HDL of 39. TSH was normal at 0.761. PRECAUTIONS: He is a fall risk. He has aspiration precautions, and he has orthopedic sternal precautions. ACTIVE COMORBIDITIES: He has no active tier 1, tier 2 or tier 3 comorbidities. PAST MEDICAL HISTORY: 1. Dyslipidemia. 2. Retinal detachment. PAST SURGICAL HISTORY: He has had procedure in his right eye for retinal detachment. He has also had right knee surgery. PRE-HOSPITAL MEDICATIONS: He was taking a medicine for his cholesterol. SOCIAL HISTORY: He was visiting [place] from [place]. He has worked in [employer]. 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 He is a . He quit smoking approximately 40 years ago. He is traveling with his with whom he lives in [place]. They were were going to [place] to stay at a cabin owned by a friend. FAMILY HISTORY: Noncontributory. ADMISSION MEDICATIONS: 1. Acetaminophen 650 mg p.o. q.4 hours p.r.n. 2. Amoxicillin/clavulanate 875 mg p.o. b.i.d. for 5 more doses. 3. Aspirin enteric-coated 81 mg p.o. daily. 4. Enoxaparin 40 mg subcutaneous daily. 5. Furosemide 40 mg p.o. daily. 6. Ipratropium/albuterol nebulizer q.6 hours p.r.n. 7. Metoprolol 12.5 mg p.o. b.i.d. 8. Multivitamin 1 p.o. daily. 9. Oxycodone/acetaminophen 5/325 mg 1-2 tablets p.o. q.4 hours p.r.n. 10. Polyethylene glycol 17 g p.o. daily p.r.n. 11. Potassium chloride 20 mEq p.o. daily. 12. Senna/docusate 1 tablet p.o. twice daily p.r.n. 13. Atorvastatin 10 mg p.o. daily. ALLERGIES: There are no known drug allergies. REVIEW OF SYSTEMS: He reports he is sleeping well. He denies pain. He has an occasional cough with no sputum. He denies dyspnea, though he is using oxygen. He did not use oxygen previously. He denies palpitations. He denies nausea, vomiting, constipation, or diarrhea. He has a good appetite. He is aware of 5- 7 missing days in his recent history that he cannot recall. He denies weakness , numbness, or tingling of the extremities. He denies difficulty swallowing. He denies vision changes or headache. Otherwise, a 10-point review of systems is negative. PHYSICAL EXAMINATION: VITAL SIGNS: Blood pressure is 90/68, heart rate is 73, respiratory rate is 16, oxygen saturation is 95% on 1.5 L, temperature is 37.4 degrees centigrade. His weight is 103.6 kg. His last weight in the hospital was 102 kg with a body mass index of 30.5. GENERAL: This is an overweight appearing man sitting up in a chair, dressed in street clothes, cooperative, and in no acute distress HEENT: Extraocular movements are intact. Pupils are equal, round, reactive to light. Mucous membranes are moist. He has a moderately crowded airway, Mallampati class 3. NECK: Supple. HEART: There is a regular rate and rate and rhythm with no murmurs, rubs, or gallops. LUNGS : There are a few crackles in the left lower lobe. There is an occasional expiratory wheeze on the right lower lobe. Otherwise, lungs are clear to auscultation bilaterally. ABDOMEN: Soft, nontender, nondistended with normoactive bowel sounds, with no hepatosplenomegaly. EXTREMITIES: There is no cyanosis, clubbing, or edema. NEUROLOGIC: He is alert and oriented x3. Cranial nerves 2-12 are grossly intact. He has some confabulation about events following his cardiac arrest. There is no focal weakness. Sensation is intact to light touch. Deep tendon reflexes are 2+ bilaterally at the biceps and patellar tendons. SKIN: There is a well-approximated surgical incision down the middle of his chest with scant eschar. No drainage. No erythema. No dehiscence. CURRENT LEVEL OF FUNCTION PER PRE-ADMISSION SCREEN: Regarding diet, feeding and swallowing, he was on a regular diet. He required moderate assistance to feed himself using built-up foam on the handles due to a weak bander and cellophaner helper machine and poor motor planning. He needed supervision with eating with limited distraction and upright posture. He was noted to have mild dysphagia. Grooming required minimal assistance for face washing. Upper body and lower body dressing required total assist. He required total assistance for sabino-care with toileting and transfer to commode with moderate assist. Bed mobility required assistance. Transfers required moderate assist of 2 people. Balance seated required contact guard assist, and standing, he had retropulsion with poor upright stability. He had increased anterior and posterior sway. He required moderate assistance x2. Endurance was fair and impacted by cognitive function. Regarding gait, he had shuffling steps, and he was not able to use the walker safely. Regarding communication, he was noted to have moderate to severe impairment. Regarding cognition, he was noted to have moderate to severe impairment in memory, orientation, problem solving, attention, and executive function. On today's exam, it appears that his communication and cognition are considerably better. Otherwise, there are no significant differences from the pre-admission screen. IMPRESSION: This is a 77-year-old man who survived an out of hospital ventricular tachycardia cardiac arrest. He received CPR for approximately 25 minutes before he was cardioverted and intubated in the field. Cardiac catheterization in the hospital revealed significant stenoses to the left main and branches of the left anterior descending. He was stabilized with hypothermia after cardiac arrest protocol and intubated. He underwent a 6 vessel coronary artery bypass graft and came through surgery remarkably well; however, he had symptoms of hypoxic ischemic encephalopathy. Comparing today's exam with the preadmission screen, he appears to have had considerable improvement in the encephalopathy; however, he does some confabulating and he continues to have functional deficits making him appropriate for inpatient rehabilitation. He will benefit from PT, OT, and speech, language, pathology to optimize his mobility and activities of daily living and cognition with a goal of going home with his family and supportive services. For a safe discharge, it is anticipated that he will be able to eat with modified independence and supervision. He will be independent with bed mobility and transfers, modified independence with ambulation using least restrictive device, and he may require assistance for dressing. He will have therapy with physical therapy, occupational therapy, and speech and language pathology initially on a modified schedule for 30-60 minutes per day per discipline on 5-7 days of the week. His expected duration of stay is 21 -28 days. It is anticipated that upon discharge, he will continue to benefit from home health services, including nursing, speech and language pathology, a nurse's aide, social sciences department chair, occupational therapy, and physical therapy. Additionally, he will benefit from a brain injury support group. PLAN: 1. Hypoxic ischemic encephalopathy, status post ventricular tachycardia cardiac arrest, 25 minutes of CPR, field cardioversion and intubation, and a 6 vessel coronary artery bypass graft. He appears to be improving regarding cognition and communication. Will have assessment and treatment per Speech and Language Pathology. 2. Deficits to mobility and activities of daily living to be assessed and treated per Physical and Occupational therapy. 3. Status post coronary artery bypass graft. He has sternal precautions. He is prescribed an aspirin and a beta wood, as well as furosemide. Will monitor his fluid status and renal function and consider decreasing furosemide, especially in light of his low blood pressure in the rehab unit today. 4. Dyslipidemia. Continue simvastatin. 5. Hypoxia with possible aspiration pneumonia. Continue antibiotics as ordered out of the hospital through 08/25/2017, and continue p.r.n. nebulizer treatment. 6. Pain management appears to be adequate with the oxycodone/acetaminophen combination, as well as acetaminophen, both on as needed basis. 7. Wound care. Daily soap and water to sternal wound. Leave all wounds open to air. Avoid ointments or underwater immersion until all scabs are resolved. 8. Prophylaxis. He will have sternal precautions for 4 more weeks or through September 19, 2017. He is on enoxaparin for DVT prophylaxis and this will be continued until his mobility is much improved. Followup. He is to see cardiothoracic surgeon, Dr. Don Chow on 08/29/2017, at 2:30 p.m. he should have a chest x-ray prior to his appointment. If he is to remain in [place] after his rehabilitation stay, he can be referred to cardiac rehabilitation. This could be done also if he returns to his home state of [place]. /[id number]/MODL MTDD
[2017-08-23] MEDS: OXYCODONE/APAP 5/325 TAB PO PRN (20:26)
[2017-08-23] MEDS: AMOXICILLIN/CLAVULANATE POT 875/125 MG TAB PO SCH (20:28)
[2017-08-23] MEDS: METOPROLOL TARTRATE 25 MG TAB PO SCH (20:28)
[2017-08-24] MEDS: OXYCODONE/APAP 5/325 TAB PO PRN ×5 (01:51→22:23)
[2017-08-24] MEDS: FUROSEMIDE 40 MG TAB PO SCH (09:50)
[2017-08-24] MEDS: ASPIRIN EC 81 MG TAB PO SCH (09:53)
[2017-08-24] MEDS: MULTIVITAMINS 1 EACH TAB PO SCH (09:53)
[2017-08-24] MEDS: ATORVASTATIN CALCIUM 10 MG TAB PO SCH (09:53)
[2017-08-24] MEDS: ENOXAPARIN 40 MG/0.4 ML SYR SC SCH (09:54)
[2017-08-24] MEDS: POTASSIUM CL 20 MEQ TAB PO SCH (09:54)
[2017-08-24] MEDS: AMOXICILLIN/CLAVULANATE POT 875/125 MG TAB PO SCH ×2 (09:54→21:01)
[2017-08-24] MEDS: METOPROLOL TARTRATE 25 MG TAB PO SCH ×2 (10:02→21:02)
--- NOTE | 2017-08-24 13:39 | SOAPPROG ---
SOAP Progress Note Assessment/Plan: Assessment: * Hypoxic ischemic encephalopathy, status post ventricular tachycardia cardiac arrest, 25 minutes of CPR, field cardioversion and intubation, and a 6 vessel coronary artery bypass graft. * He appears to be improving regarding cognition and communication. * Continue Speech and Language Pathology. * Deficits to mobility and activities of daily living to be assessed and treated per Physical and Occupational therapy. * CAD, NSTEMI, status post coronary artery bypass graft. He has sternal precautions. He is prescribed an aspirin and a beta wood, as well as furosemide. Appropriate blood pressure control. Monitor his fluid status. Renal function is stable and not consistent with dehydration on labs 08/24/2017. * Dyslipidemia. Continueatorvastatin. * Hypoxia with possible aspiration pneumonia. Continue antibiotics as ordered out of the hospital through 08/25/2017, and continue p.r.n. nebulizer treatment. * Insomnia. Minimize disturbance after bedtime. Will initiate PRN melatonin . * Pain management appears to be adequate with the oxycodone/acetaminophen combination, as well as acetaminophen, both on as needed basis. * Wound care. Daily soap and water to sternal wound. Leave all wounds open to air. Avoid ointments or underwater immersion until all scabs are resolved. * Prophylaxis. He will have sternal precautions for 4 more weeks or through September 19, 2017. He is on enoxaparin for DVT prophylaxis and this will be continued until his mobility is much improved. Followup. He is to see cardiothoracic surgeon, Dr. Don Chow on 08/29/2017, at 2:30 p.m. he should have a chest x-ray prior to his appointment. If he is to remain in [place] after his rehabilitation stay, he can be referred to cardiac rehabilitation. This could be done also if he returns to his home state of [place]. 08/24/17 13:34 Subjective: Reports sleep was interrupted last night multiple times by staff. Finally slept better after he took an oxycodone/acetaminophen pill after midnight. Also says he has not used to sleeping in his clothes. Otherwise without complaints. No cough or dyspnea, no fevers or chills. Pain is adequately controlled Objective: Vital Signs Temp Pulse Resp BP Pulse Ox 37.1 C 78 18 112/50 L 92 08/24/17 05:23 08/24/17 10:02 08/24/17 10:11 08/24/17 10:02 08/24/17 10:11 Laboratory Results 08/24/17 05:15 08/23/17 08/24/17 08/25/17 05:59 05:59 05:59 Intake Total 750 245 Output Total 950 450 Balance -200 -205 Physical Exam - Physical Exam General Appearance: WD/WN, alert, no apparent distress, obese Respiratory: normal breath sounds, No crackles, No rhonchi, No wheezing Cardiac/Chest: regular rate, rhythm, No edema, No JVD, No diastolic murmur, No systolic murmur Skin: normal color, warm/dry Neuro/Psych: alert, normal mood/affect, oriented x 3 ICD10 Worksheet Patient Problems: Problems Problem Status Onset Acute blood loss anemia Acute CAD, multiple vessel Acute Cardiac arrest Acute S/P CABG x 6 Acute ~08/13/17 chronic disease mgmt/transitional care Acute
[2017-08-24] MEDS ORDERED: ACETAMINOPHEN 325 MG TAB PO PRN (15:56)
[2017-08-25] MEDS: OXYCODONE/APAP 5/325 TAB PO PRN ×3 (07:56→20:18)
[2017-08-25] MEDS: ENOXAPARIN 40 MG/0.4 ML SYR SC SCH (08:02)
[2017-08-25] MEDS: ATORVASTATIN CALCIUM 10 MG TAB PO SCH (08:03)
[2017-08-25] MEDS: AMOXICILLIN/CLAVULANATE POT 875/125 MG TAB PO SCH ×2 (08:04→20:19)
[2017-08-25] MEDS: FUROSEMIDE 40 MG TAB PO SCH (08:04)
[2017-08-25] MEDS: ASPIRIN EC 81 MG TAB PO SCH (08:04)
[2017-08-25] MEDS: MULTIVITAMINS 1 EACH TAB PO SCH (08:04)
[2017-08-25] MEDS: POTASSIUM CL 20 MEQ TAB PO SCH (11:53)
--- NOTE | 2017-08-25 12:12 | SOAPPROG ---
SOAP Progress Note Assessment/Plan: Assessment: * Hypoxic ischemic encephalopathy, status post ventricular tachycardia cardiac arrest, 25 minutes of CPR, field cardioversion and intubation, and a 6 vessel coronary artery bypass graft. 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 * Continue Speech and Language Pathology. * Deficits to mobility and activities of daily living. * Standby assist to contact guard assist for bed mobility; needs cues for precautions. Transfers contact guard assist to minimal assist. Walks with a front wheeled walker with minimal assist. Required 3 L of O2 with walking. * Continue Physical and Occupational therapy. * CAD, NSTEMI, status post coronary artery bypass graft. He has sternal precautions. He is prescribed an aspirin and a beta wood, as well as furosemide. Renal function is stable and not consistent with dehydration on labs 08/24/2017. * Hypotension. * Discussed with office of cardiothoracic surgeon Dr. Chow. Changed parameters for metoprolol, to hold for systolic less than 90 rather than less than 100, or for heart rate less than 55. * Goal weight is 100 kg; he is currently up greater than 2 kg. Continue furosemide at 40 mg q.day. * Patient denies symptoms though with severe short-term memory loss is unclear if he is on accurate monitoring analyst. * Dyslipidemia. Continue atorvastatin. * Hypoxia with possible aspiration pneumonia. Continue antibiotics as ordered out of the hospital through 08/25/2017, and continue p.r.n. nebulizer treatment. * Insomnia. Minimize disturbance after bedtime. Nurse reports that patient thinks the bed is uncomfortable. Trial of trazodone 25 mg at HS starting 2017. * Pain management appears to be adequate with the oxycodone/acetaminophen combination, as well as acetaminophen, both on as needed basis. * Wound care. Daily soap and water to sternal wound. Leave all wounds open to air. Avoid ointments or underwater immersion until all scabs are resolved. * Prophylaxis. He will have sternal precautions for 4 more weeks or through September 19, 2017. He is on enoxaparin for DVT prophylaxis and this will be continued until his mobility is much improved. DISPOSITION: Attended staffing, 15 min. Discussed with case management, dietitian, nursing, PT, OT, STRADDLE CARRIER OPERATOR. Expect him to continue to regain mobility. Concerns regarding impulsivity and short-term memory loss. Goal is for him to be safe for a trip by car back to home in [place], a 2 day trip, with his and a friend.. He will need to be independent with car transfers and ADLs. Tentative discharge date set for 09/01/2017. Followup. He is to see cardiothoracic surgeon, Dr. Don Chow on 08/29/2017, at 2:30 p.m. he should have a chest x-ray prior to his appointment. If he is to remain in [place] after his rehabilitation stay, he can be referred to cardiac rehabilitation. This could be done also if he returns to his home state of [place]. 08/25/17 13:56 Subjective: No complaints. Denies pain, cough, dyspnea, fevers, chills. Denies lightheadedness when standing. Objective: Vital Signs Temp Pulse Resp BP Pulse Ox 37.1 C 86 16 100/57 L 93 08/25/17 08:00 08/25/17 11:49 08/25/17 08:00 08/25/17 11:49 08/25/17 11:49 Laboratory Results 08/24/17 05:15 08/24/17 08/25/17 08/26/17 05:59 05:59 05:59 Intake Total 750 1435 311 Output Total 950 2350 1 Balance -200 -915 310 - Time Spent With Patient Time Spent With Patient: Greater than 35 min floor time today, including more than 50% of time in coordination of care during staffing meeting, and counseling patient. Physical Exam - Physical Exam General Appearance: WD/WN, alert, no apparent distress Respiratory: normal breath sounds, No crackles, No rhonchi, No wheezing Cardiac/Chest: regular rate, rhythm, edema (Trace to 1+ bilateral pretibial), No JVD, No diastolic murmur, No systolic murmur Skin: normal color, warm/dry, other (Sternal incision well approximated, scattered eschar. Minimal erythema which is nontender in 2 spots along incision.) Neuro/Psych: alert, normal mood/affect ICD10 Worksheet Patient Problems: Problems Problem Status Onset Acute blood loss anemia Acute CAD, multiple vessel Acute Cardiac arrest Acute S/P CABG x 6 Acute ~08/13/17 chronic disease mgmt/transitional care Acute
--- NOTE | 2017-08-25 13:33 | WOCRNPDOC ---
WOCRN Advanced Assessment Note - Skin Integrity Problem, Advanced Assess Right Nose Dressing Type: Open to Air Doreen Wound Tissue: Blanching, Intact Wound Bed Color: Brown Wound Bed Constitution: Scab Wound Edges: Well Defined Site Measurement - Head-to-Toe Length X Width X Depth (cm): 0.4x0.3xeschar Pressure Injury Stage: Unstageable Pressure Injury Present on Admit: No (cardio clinician related (NG tube)) Skin Integrity Problem Comment: Wound open to air. Appears to be healing. Will leave open and continue to monitor. Wound care will round again in about 2 weeks. Right Medial Gluteal Folds Dressing Type: Open to Air Exudate Amount: None Integumentary Issue Intervention: Lotion/Cream Applied (calazime) Doreen Wound Tissue: Blanching, Intact Wound Bed Color: Ribera Skin Integrity Problem Comment: Patient with intertriginal dermatitis to right medial gluteal cleft. Skin is blanching with small partial thickness openings throughout. Calazime cream applied and will order for this until healed. Please let wound care know if this condition worsens or does not improve over the next week.
[2017-08-25] MEDS: METOPROLOL TARTRATE 25 MG TAB PO SCH ×2 (14:03→20:20)
[2017-08-25] MEDS: traZODone 50 MG TAB PO SCH (20:20)
[2017-08-26] MEDS: OXYCODONE/APAP 5/325 TAB PO PRN ×5 (00:51→23:18)
[2017-08-26] MEDS: FUROSEMIDE 40 MG TAB PO SCH (08:09)
[2017-08-26] MEDS: ATORVASTATIN CALCIUM 10 MG TAB PO SCH (08:10)
[2017-08-26] MEDS: METOPROLOL TARTRATE 25 MG TAB PO SCH ×2 (08:10→22:32)
[2017-08-26] MEDS: ASPIRIN EC 81 MG TAB PO SCH (08:10)
[2017-08-26] MEDS: MULTIVITAMINS 1 EACH TAB PO SCH (08:11)
[2017-08-26] MEDS: POTASSIUM CL 20 MEQ TAB PO SCH (08:11)
[2017-08-26] MEDS: ENOXAPARIN 40 MG/0.4 ML SYR SC SCH (08:12)
--- NOTE | 2017-08-26 12:20 | SOAPPROG ---
SOAP Progress Note Assessment/Plan: Assessment: * Hypoxic ischemic encephalopathy, status post ventricular tachycardia cardiac arrest, 25 minutes of CPR, field cardioversion and intubation, and a 6 vessel coronary artery bypass graft. 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 * Continue Speech and Language Pathology. * Deficits to mobility and activities of daily living. * Standby assist to contact guard assist for bed mobility; needs cues for precautions. Transfers contact guard assist to minimal assist. Walks with a front wheeled walker with minimal assist. Required 3 L of O2 with walking. * Continue Physical and Occupational therapy. * CAD, NSTEMI, status post coronary artery bypass graft. He has sternal precautions. He is prescribed an aspirin and a beta wood, as well as furosemide. Renal function is stable and not consistent with dehydration on labs 08/24/2017. * Hypotension. * Discussed with office of cardiothoracic surgeon Dr. Chow. Changed parameters for metoprolol, to hold for systolic less than 90 rather than less than 100, or for heart rate less than 55. * Goal weight is 100 kg; he is currently up greater than 2 kg. Continue furosemide at 40 mg q.day. 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 * Will get another BMP tomorrow to make sure that we are not over diuresing * Dyslipidemia. Continue atorvastatin. * Hypoxia with possible aspiration pneumonia. Continue antibiotics as ordered out of the hospital through 08/25/2017, and continue p.r.n. nebulizer treatment. * Insomnia. Minimize disturbance after bedtime. Nurse reports that patient thinks the bed is uncomfortable. Trial of trazodone 25 mg at HS starting 2017. * Pain management appears to be adequate with the oxycodone/acetaminophen combination, as well as acetaminophen, both on as needed basis. * Wound care. Daily soap and water to sternal wound. Leave all wounds open to air. Avoid ointments or underwater immersion until all scabs are resolved. * Prophylaxis. He will have sternal precautions for 4 more weeks or through September 19, 2017. He is on enoxaparin for DVT prophylaxis and this will be continued until his mobility is much improved. Followup. He is to see cardiothoracic surgeon, Dr. Don Chow on 08/29/2017, at 2:30 p.m. he should have a chest x-ray prior to his appointment. If he is to remain in [place] after his rehabilitation stay, he can be referred to cardiac rehabilitation. This could be done also if he returns to his home state of [place]. Plan: 08/26/17 12:19 Subjective: Doing well. No shortness of breath. No lower extremity edema. No chest pain. Feels like cognition is improving Objective: Vital Signs Temp Pulse Resp BP Pulse Ox 36.7 C 82 16 96/52 L 92 08/26/17 07:21 08/26/17 07:21 08/26/17 07:21 08/26/17 08:10 08/26/17 07:21 Laboratory Results 08/24/17 05:15 08/25/17 08/26/17 08/27/17 05:59 05:59 05:59 Intake Total 1435 1186 240 Output Total 2350 1151 650 Balance -915 35 -410 Physical Exam - Physical Exam General Appearance: WD/WN, alert, no apparent distress Neck: supple Respiratory: lungs clear, normal breath sounds Cardiac/Chest: regular rate, rhythm, other (Sternal wound clean dry and intact) , No edema, No JVD Abdomen: normal bowel sounds, non-tender, soft Neuro/Psych: alert, normal mood/affect, oriented x 3 ICD10 Worksheet Patient Problems: Problems Problem Status Onset Acute blood loss anemia Acute CAD, multiple vessel Acute Cardiac arrest Acute S/P CABG x 6 Acute ~08/13/17 chronic disease mgmt/transitional care Acute
[2017-08-26] MEDS: traZODone 50 MG TAB PO SCH (20:07)
[2017-08-27] MEDS: OXYCODONE/APAP 5/325 TAB PO PRN ×4 (05:03→22:15)
[2017-08-27] MEDS: ATORVASTATIN CALCIUM 10 MG TAB PO SCH (09:08)
[2017-08-27] MEDS: METOPROLOL TARTRATE 25 MG TAB PO SCH ×2 (09:09→22:17)
[2017-08-27] MEDS: MULTIVITAMINS 1 EACH TAB PO SCH (09:09)
[2017-08-27] MEDS: ENOXAPARIN 40 MG/0.4 ML SYR SC SCH (09:09)
[2017-08-27] MEDS: ASPIRIN EC 81 MG TAB PO SCH (09:10)
[2017-08-27] MEDS: FUROSEMIDE 40 MG TAB PO SCH (09:10)
[2017-08-27] MEDS: POTASSIUM CL 20 MEQ TAB PO SCH (09:10)
[2017-08-27] MEDS: CEPHALEXIN 250 MG CAP PO SCH ×3 (13:52→22:18)
--- NOTE | 2017-08-27 19:48 | SOAPPROG ---
SOAP Progress Note Assessment/Plan: Assessment: * Hypoxic ischemic encephalopathy, status post ventricular tachycardia cardiac arrest, 25 minutes of CPR, field cardioversion and intubation, and a 6 vessel coronary artery bypass graft. 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 * Continue Speech and Language Pathology. * Deficits to mobility and activities of daily living. * Standby assist to contact guard assist for bed mobility; needs cues for precautions. Transfers contact guard assist to minimal assist. Walks with a front wheeled walker with minimal assist. Required 3 L of O2 with walking. * Continue Physical and Occupational therapy. * CAD, NSTEMI, status post coronary artery bypass graft. He has sternal precautions. He is prescribed an aspirin and a beta wood, as well as furosemide. Renal function is stable and not consistent with dehydration on labs 08/24/2017 and 08/27 * Low grade fever * UA is negative * No symptoms or signs pneumonia * Possible sternal wound infection that is mild. I have outlined the erythema. Will start on Keflex * Check CBC in the morning * Will be getting chest x-ray tomorrow * Hypotension. * Discussed with office of cardiothoracic surgeon Dr. Chow. Changed parameters for metoprolol, to hold for systolic less than 90 rather than less than 100, or for heart rate less than 55. * Goal weight is 100 kg; he is currently up greater than 2 kg. Continue furosemide at 40 mg q.day. 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 * Dyslipidemia. Continue atorvastatin. * Hypoxia with possible aspiration pneumonia. Continue antibiotics as ordered out of the hospital through 08/25/2017, and continue p.r.n. nebulizer treatment. * Insomnia. Minimize disturbance after bedtime. Nurse reports that patient thinks the bed is uncomfortable. Trial of trazodone 25 mg at HS starting 2017. * Pain management appears to be adequate with the oxycodone/acetaminophen combination, as well as acetaminophen, both on as needed basis. * Wound care. Daily soap and water to sternal wound. Leave all wounds open to air. Avoid ointments or underwater immersion until all scabs are resolved. * Prophylaxis. He will have sternal precautions for 4 more weeks or through September 19, 2017. He is on enoxaparin for DVT prophylaxis and this will be continued until his mobility is much improved. Followup. He is to see cardiothoracic surgeon, Dr. Don Chwo on 08/29/2017, at 2:30 p.m. he should have a chest x-ray prior to his appointment. If he is to remain in [place] after his rehabilitation stay, he can be referred to cardiac rehabilitation. This could be done also if he returns to his home state of [place]. Plan: 08/26/17 12:19 08/27/17 19:46 Subjective: Has no complaints. No dysuria or cough. Having low-grade fevers though Objective: Vital Signs Temp Pulse Resp BP Pulse Ox 37.0 C 80 14 95/61 L 93 08/27/17 18:22 08/27/17 18:22 08/27/17 18:22 08/27/17 18:22 08/27/17 18:22 Laboratory Results 08/27/17 06:00 08/26/17 08/27/17 08/28/17 05:59 05:59 05:59 Intake Total 1186 1500 660 Output Total 1151 1750 950 Balance 35 -250 -290 Physical Exam - Physical Exam General Appearance: WD/WN, alert, no apparent distress Respiratory: lungs clear, normal breath sounds, No respiratory distress Cardiac/Chest: regular rate, rhythm, edema, other (Sternal incision does show slight erythema on the inferior edge) Abdomen: non-tender, soft Skin: warm/dry Neuro/Psych: alert, normal mood/affect, oriented x 3 ICD10 Worksheet Patient Problems: Problems Problem Status Onset Acute blood loss anemia Acute CAD, multiple vessel Acute Cardiac arrest Acute S/P CABG x 6 Acute ~08/13/17 chronic disease mgmt/transitional care Acute
[2017-08-27] MEDS: traZODone 50 MG TAB PO SCH (22:17)
[2017-08-28] MEDS: OXYCODONE/APAP 5/325 TAB PO PRN ×5 (04:28→22:25)
[2017-08-28] MEDS: CEPHALEXIN 250 MG CAP PO SCH ×3 (04:28→17:45)
[2017-08-28] MEDS: FUROSEMIDE 40 MG TAB PO SCH (08:27)
[2017-08-28] MEDS: ASPIRIN EC 81 MG TAB PO SCH (08:27)
[2017-08-28] MEDS: ATORVASTATIN CALCIUM 10 MG TAB PO SCH (08:27)
[2017-08-28] MEDS: POTASSIUM CL 20 MEQ TAB PO SCH (08:27)
[2017-08-28] MEDS: MULTIVITAMINS 1 EACH TAB PO SCH (08:27)
[2017-08-28] MEDS: METOPROLOL TARTRATE 25 MG TAB PO SCH ×2 (08:28→20:56)
[2017-08-28] MEDS: ENOXAPARIN 40 MG/0.4 ML SYR SC SCH (09:05)
--- NOTE | 2017-08-28 13:18 | SOAPPROG ---
SOAP Progress Note Assessment/Plan: Assessment: * Hypoxic ischemic encephalopathy, status post ventricular tachycardia cardiac arrest, 25 minutes of CPR, field cardioversion and intubation, and a 6 vessel coronary artery bypass graft. 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 * Appears to be improving. * Continue Speech and Language Pathology. * Deficits to mobility and activities of daily living. * Standby assist to contact guard assist for bed mobility; needs cues for precautions. Transfers contact guard assist to minimal assist. Walks with a front wheeled walker with minimal assist. Required 3 L of O2 with walking. * Continue Physical and Occupational therapy. * CAD, NSTEMI, status post coronary artery bypass graft. He has sternal precautions. He is prescribed an aspirin and a beta wood, as well as furosemide. Renal function is stable and not consistent with dehydration on labs 08/24/2017. * Cellulitis along incision. * Begun on cephalexin 08/27/2017. Appears to have improvement. * Will increase cephalexin dose to 500 mg four times daily from 250 mg four times daily starting 08/28/2017. * Hypotension. * Discussed with office of cardiothoracic surgeon Dr. Chow. Changed parameters for metoprolol, to hold for systolic less than 90 rather than less than 100, or for heart rate less than 55. * Goal weight is 100 kg. Continue furosemide at 40 mg q.day. 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 * Dyslipidemia. Continue atorvastatin. * Hypoxia with possible aspiration pneumonia. Completed antibiotics as ordered out of the hospital on 08/25/2017. Continue p.r.n. nebulizer treatment. * Oxygenating well with no O2 today, 08/28/2017. * Insomnia. Minimize disturbance after bedtime. Improved with trazodone 25 mg at HS starting 08/25/2017. * Pain management appears to be adequate with the oxycodone/acetaminophen combination, as well as acetaminophen, both on as needed basis. * Wound care. Daily soap and water to sternal wound. Leave all wounds open to air. Avoid ointments or underwater immersion until all scabs are resolved. * Prophylaxis. He will have sternal precautions for 4 more weeks or through September 19, 2017. He is on enoxaparin for DVT prophylaxis and this will be continued until his mobility is much improved. DISPOSITION: Expect him to continue to regain mobility. Concerns regarding impulsivity and short-term memory loss. Goal is for him to be safe for a trip by car back to home in [place], a 2 day trip, with his and a friend.. He will need to be independent with car transfers and ADLs. Tentative discharge date set for 09/01/2017. Followup. He is to see cardiothoracic surgeon, Dr. Don Chow on 08/29/2017, at 2:30 p.m. Chest x-ray prior to his appointment in 08/28/2017. If he is to remain in [place] after his rehabilitation stay, he can be referred to cardiac rehabilitation. This could be done also if he returns to his home state of [place]. 08/28/17 13:18 Subjective: No complaints. No cough or dyspnea. Doing well off O2 today. No fevers or chills. Objective: Vital Signs Temp Pulse Resp BP Pulse Ox 36.7 C 95 16 95/61 L 94 08/28/17 08:00 08/28/17 09:15 08/28/17 08:00 08/28/17 08:28 08/28/17 13:06 Laboratory Results 08/28/17 04:38 08/28/17 04:38 08/27/17 08/28/17 08/29/17 05:59 05:59 05:59 Intake Total 1500 1060 390 Output Total 1750 1150 400 Balance -250 -90 -10 Physical Exam - Physical Exam General Appearance: WD/WN, alert, no apparent distress Respiratory: No respiratory distress, No accessory muscle use Skin: normal color, warm/dry, other (Erythema along mid-distal sternotomy incision approximately 2 cm adjacent to his incision on the right and 1 cm adjacent to incision on the left. Erythema on the right has retreated from demarcation placed on skin yesterday.) Neuro/Psych: no motor/sensory deficits, alert, normal mood/affect, oriented x 3 ICD10 Worksheet Patient Problems: Problems Problem Status Onset Acute blood loss anemia Acute CAD, multiple vessel Acute Cardiac arrest Acute S/P CABG x 6 Acute ~08/13/17 chronic disease mgmt/transitional care Acute
[2017-08-28] MEDS: traZODone 50 MG TAB PO SCH (20:55)
[2017-08-29] MEDS: CEPHALEXIN 250 MG CAP PO SCH ×4 (00:44→17:41)
[2017-08-29] MEDS: OXYCODONE/APAP 5/325 TAB PO PRN ×4 (03:21→19:18)
[2017-08-29] MEDS: ASPIRIN EC 81 MG TAB PO SCH (08:03)
[2017-08-29] MEDS: ATORVASTATIN CALCIUM 10 MG TAB PO SCH (08:03)
[2017-08-29] MEDS: POTASSIUM CL 20 MEQ TAB PO SCH (08:03)
[2017-08-29] MEDS: FUROSEMIDE 40 MG TAB PO SCH (08:03)
[2017-08-29] MEDS: MULTIVITAMINS 1 EACH TAB PO SCH (08:04)
[2017-08-29] MEDS: METOPROLOL TARTRATE 25 MG TAB PO SCH ×2 (08:04→20:52)
[2017-08-29] MEDS: ENOXAPARIN 40 MG/0.4 ML SYR SC SCH (08:59)
--- NOTE | 2017-08-29 11:54 | SOAPPROG ---
SOAP Progress Note Assessment/Plan: Assessment: * Hypoxic ischemic encephalopathy, status post ventricular tachycardia cardiac arrest, 25 minutes of CPR, field cardioversion and intubation, and a 6 vessel coronary artery bypass graft. 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 * Appears to be improving. * Continue Speech and Language Pathology. * Deficits to mobility and activities of daily living. * Standby assist to contact guard assist for bed mobility; needs cues for precautions. Transfers contact guard assist to minimal assist. Walks with a front wheeled walker with minimal assist. Required 1 - 3 L of O2 with walking. * Continue Physical and Occupational therapy. * CAD, NSTEMI, status post coronary artery bypass graft. He has sternal precautions. He is prescribed an aspirin and a beta wood, as well as furosemide. Renal function is stable and not consistent with dehydration on labs 08/24/2017. * Cellulitis along incision. * Begun on cephalexin 08/27/2017. Appears to have improvement. * Increased cephalexin dose to 500 mg four times daily from 250 mg four times daily starting 08/28/2017. Improving. * Hypotension. * Discussed with office of cardiothoracic surgeon Dr. Chow. Changed parameters for metoprolol, to hold for systolic less than 90 rather than less than 100, or for heart rate less than 55. * Goal weight is 100 kg. Continue furosemide at 40 mg q.day. 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 * Dyslipidemia. Continue atorvastatin. * Hypoxia with possible aspiration pneumonia. Completed antibiotics as ordered out of the hospital on 08/25/2017. Continue p.r.n. nebulizer treatment. * Oxygenating well with no O2 today, 08/28/2017. * Insomnia. Minimize disturbance after bedtime. Improved with trazodone 25 mg at HS starting 08/25/2017. * Pain management appears to be adequate with the oxycodone/acetaminophen combination, as well as acetaminophen, both on as needed basis. * Wound care. Daily soap and water to sternal wound. Leave all wounds open to air. Avoid ointments or underwater immersion until all scabs are resolved. * Prophylaxis. He will have sternal precautions for 4 more weeks or through September 19, 2017. Mobility much improved. D/C enoxaparin starting 08/30/2017. DISPOSITION: Expect him to continue to regain mobility. Concerns regarding impulsivity and short-term memory loss. Goal is for him to be safe for a trip by car back to home in [place], a 2 day trip, with his and a friend.. He will need to be independent with car transfers and ADLs. Tentative discharge date set for 09/01/2017. Followup. He is to see cardiothoracic surgeon, Dr. Don Chow on 08/29/2017, at 2:30 p.m. Chest x-ray prior to his appointment in 08/28/2017. If he is to remain in [place] after his rehabilitation stay, he can be referred to cardiac rehabilitation. This could be done also if he returns to his home state of [place]. 08/29/17 11:54 Subjective: No complaints. Doing a meal prep with OT. No cough or dyspnea, fevers or chills. Objective: Vital Signs Temp Pulse Resp BP Pulse Ox 37.1 C 74 16 101/62 93 08/29/17 05:53 08/29/17 08:04 08/29/17 05:53 08/29/17 08:04 08/29/17 05:53 Laboratory Results 08/28/17 04:38 08/28/17 04:38 08/28/17 08/29/17 08/30/17 05:59 05:59 05:59 Intake Total 1060 990 700 Output Total 1150 400 Balance -90 590 700 Physical Exam - Physical Exam General Appearance: WD/WN, alert, no apparent distress, obese Respiratory: normal breath sounds, No crackles, No rhonchi, No wheezing Cardiac/Chest: regular rate, rhythm, No edema, No diastolic murmur, No systolic murmur Skin: normal color, warm/dry, other (Erythema mostly resolved on L side of sternotomy incision. Unchanged on R side, approx 2 cm.) Neuro/Psych: no motor/sensory deficits, alert, normal mood/affect, oriented x 3 ICD10 Worksheet Patient Problems: Problems Problem Status Onset Acute blood loss anemia Acute CAD, multiple vessel Acute Cardiac arrest Acute S/P CABG x 6 Acute ~08/13/17 chronic disease mgmt/transitional care Acute
[2017-08-29] MEDS: traZODone 50 MG TAB PO SCH (20:53)
[2017-08-30] MEDS: OXYCODONE/APAP 5/325 TAB PO PRN ×4 (00:04→20:01)
[2017-08-30] MEDS: CEPHALEXIN 250 MG CAP PO SCH ×2 (00:04→06:57)
[2017-08-30] MEDS: ASPIRIN EC 81 MG TAB PO SCH (08:24)
[2017-08-30] MEDS: ATORVASTATIN CALCIUM 10 MG TAB PO SCH (08:24)
[2017-08-30] MEDS: METOPROLOL TARTRATE 25 MG TAB PO SCH ×2 (08:25→20:01)
[2017-08-30] MEDS: POTASSIUM CL 10 MEQ TAB PO SCH (08:27)
[2017-08-30] MEDS: MULTIVITAMINS 1 EACH TAB PO SCH (08:27)
[2017-08-30] MEDS: FUROSEMIDE 20 MG TAB PO SCH (08:27)
--- NOTE | 2017-08-30 09:14 | SOAPPROG ---
SOAP Progress Note Assessment/Plan: Assessment: * Hypoxic ischemic encephalopathy, status post ventricular tachycardia cardiac arrest, 25 minutes of CPR, field cardioversion and intubation, and a 6 vessel coronary artery bypass graft. * Decreased insight, memory, new learning, and problem-solving. * Appears to be improving but continues to require cues for sternal precautions and oxygen. * Continue Speech and Language Pathology. * Deficits to mobility and activities of daily living. * Initial functional independence measure 82, improved to 94 as of 08/30/2017. Standby assist for bed mobility and ambulation. Modified independence for transfers. Climbed 12 stairs with a step 2 pattern. Accomplished a car transfer. Supervision to setup for activities day of daily living. Needs cues for oxygen management and precautions. * Continue Physical and Occupational therapy. * CAD, NSTEMI, status post coronary artery bypass graft. He has sternal precautions. He is prescribed an aspirin and a beta wood, as well as furosemide. Renal function is stable and not consistent with dehydration on labs 08/24/2017. * Cellulitis along incision. * Begun on cephalexin 08/27/2017. * Increased cephalexin dose to 500 mg four times daily from 250 mg four times daily starting 08/28/2017. * Erythema and induration persisting. Change to Augmentin starting 08/30/2017. * Hypotension. * Discussed with office of cardiothoracic surgeon Dr. Chow. Changed parameters for metoprolol, to hold for systolic less than 90 rather than less than 100, or for heart rate less than 55. * Goal weight is 100 kg. Continue furosemide at 40 mg q.day. 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 * Dyslipidemia. Continue atorvastatin. * Hypoxia with possible aspiration pneumonia. Completed antibiotics as ordered out of the hospital on 08/25/2017. Continue p.r.n. nebulizer treatment. * Oxygenating well with no O2 today, 08/28/2017. * Insomnia. Minimize disturbance after bedtime. Improved with trazodone 25 mg at HS starting 08/25/2017. * Pain management appears to be adequate with the oxycodone/acetaminophen combination, as well as acetaminophen, both on as needed basis. * Wound care. Daily soap and water to sternal wound. Leave all wounds open to air. Avoid ointments or underwater immersion until all scabs are resolved. * Prophylaxis. He will have sternal precautions for 4 more weeks or through September 19, 2017. Mobility much improved. D/C enoxaparin starting 08/30/2017. DISPOSITION: Attended staffing, 15 min. Discussed with case management, nursing, PT, OT, ONLINE COMMUNICATIONS MANAGER. Concerns regarding impulsivity and short-term memory loss. Plans to return to [place] by plane with his . Friends will drive his car back to [place]. He will need to be independent with car transfers and ADLs. Discharge date set for 09/01/2017. 08/30/17 11:17 Subjective: Reports that he attain sleep well last night but then was up for several hours. He then slept again. Denies fatigue at present. Not in pain. No cough or dyspnea. No fevers or chills. Objective: Vital Signs Temp Pulse Resp BP Pulse Ox 37.0 C 83 13 106/62 93 08/29/17 20:00 08/30/17 08:25 08/30/17 08:00 08/30/17 08:25 08/30/17 08:00 Laboratory Results 08/28/17 04:38 08/28/17 04:38 08/29/17 08/30/17 08/31/17 05:59 05:59 05:59 Intake Total 990 1240 240 Output Total 400 Balance 590 1240 240 - Time Spent With Patient Time Spent With Patient: Greater than 35 min floor time today, including more than 50% of time in coordination of care during staffing, and counseling patient. Physical Exam - Physical Exam General Appearance: WD/WN, alert, no apparent distress, obese Respiratory: normal breath sounds, crackles (Few, left lower lobe.), No rhonchi , No wheezing Cardiac/Chest: regular rate, rhythm, No edema, No JVD, No diastolic murmur, No systolic murmur Skin: normal color, warm/dry, other (Erythematous patches with induration approximately 2 cm each persist on either side of distal sternotomy incision.) Neuro/Psych: no motor/sensory deficits, alert, normal mood/affect, oriented x 3 ICD10 Worksheet Patient Problems: Problems Problem Status Onset Acute blood loss anemia Acute CAD, multiple vessel Acute Cardiac arrest Acute S/P CABG x 6 Acute ~08/13/17 chronic disease mgmt/transitional care Acute
[2017-08-30] MEDS: AMOXICILLIN/CLAVULANATE POT 875/125 MG TAB PO SCH ×2 (09:31→20:01)
[2017-08-30] MEDS ORDERED: CEPHALEXIN 500 MG CAP PO SCH (12:00)
[2017-08-30] MEDS ORDERED: BENZOCAINE (ORAJEL) GEL 11.9GM TUBE TP PRN (12:33)
[2017-08-30] MEDS: traZODone 50 MG TAB PO SCH (20:01)
[2017-08-31] MEDS: OXYCODONE/APAP 5/325 TAB PO PRN ×3 (01:28→21:07)
[2017-08-31] MEDS: AMOXICILLIN/CLAVULANATE POT 875/125 MG TAB PO SCH ×2 (08:53→21:07)
[2017-08-31] MEDS: MULTIVITAMINS 1 EACH TAB PO SCH (08:53)
[2017-08-31] MEDS: ATORVASTATIN CALCIUM 10 MG TAB PO SCH (08:53)
[2017-08-31] MEDS: FUROSEMIDE 20 MG TAB PO SCH (08:53)
[2017-08-31] MEDS: ASPIRIN EC 81 MG TAB PO SCH (08:53)
[2017-08-31] MEDS: POTASSIUM CL 10 MEQ TAB PO SCH (08:53)
[2017-08-31] MEDS: METOPROLOL TARTRATE 25 MG TAB PO SCH ×2 (08:57→21:07)
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
--- NOTE | 2017-08-31 15:31 | PDOREHIP ---
Admission [facility] - Admission - 3 Day Assessment Period Admission Date/Day 1: 08/23/17 Day 2: 08/24/17 Day 3: 08/25/17 Discharge [facility] - Discharge - 3 Day Assessment Period 2 Days Prior to Anticipated Discharge Date: 08/30/17 1 Day Prior to Anticipated Discharge Date: 08/31/17 Anticipated Discharge Date: 09/01/17 - Discharge Skin Conditions Unhealed Pressure Ulcer (1 or more/Stage 1 or >)-Discharge: 0. No
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
[2017-08-31] MEDS: traZODone 50 MG TAB PO SCH (21:07)
[2017-09-01] MEDS: AMOXICILLIN/CLAVULANATE POT 875/125 MG TAB PO SCH (08:22)
[2017-09-01] MEDS: MULTIVITAMINS 1 EACH TAB PO SCH (08:22)
[2017-09-01] MEDS: FUROSEMIDE 20 MG TAB PO SCH (08:22)
[2017-09-01] MEDS: POTASSIUM CL 10 MEQ TAB PO SCH (08:22)
[2017-09-01] MEDS: ATORVASTATIN CALCIUM 10 MG TAB PO SCH (08:22)
[2017-09-01] MEDS: ASPIRIN EC 81 MG TAB PO SCH (08:22)
[2017-09-01 08:24] VITALS: BP 107/61
[2017-09-01] MEDS: METOPROLOL TARTRATE 25 MG TAB PO SCH (08:25)
[2017-09-01] MEDS: OXYCODONE/APAP 5/325 TAB PO PRN (08:27)
== END 2017-09-01 16:46 | disposition home or self-care (01) | DRG 91 ==
LOC: BREH 08-23 14:58
PROVIDERS: ADMIT Internal Medicine; ATTEND Internal Medicine
PROC: F0636ZZ Communicative/Cognitive Integration Skills Treatment of Neurological System - Whole Body (ICD-10-PCS; principal; 2017-08-23)
PROC: F08Z7ZZ Vocational Activities and Functional Community or Work Reintegration Skills Treatment (ICD-10-PCS; principal; 2017-08-23)
PROC: F07M3ZZ Motor Function Treatment of Musculoskeletal System - Whole Body (ICD-10-PCS; principal; 2017-08-23)
DX: G93.1 Anoxic brain damage, not elsewhere classified (principal); T81.4XXA Infection following a procedure, initial encounter; L03.313 Cellulitis of chest wall; I21.4 Non-ST elevation (NSTEMI) myocardial infarction; R41.3 Other amnesia; R41.844 Frontal lobe and executive function deficit; G47.00 Insomnia, unspecified; E78.5 Hyperlipidemia, unspecified; R09.02 Hypoxemia; I25.10 Atherosclerotic heart disease of native coronary artery without angina pectoris; Z86.74 Personal history of sudden cardiac arrest; Z95.1 Presence of aortocoronary bypass graft
CPT/HCPCS: 92507-GN; 92523-GN; 92610-GN; 97110-GO; 97110-GP; 97112-GP; 97116-GP; 97162-GP; 97166-GO; 97530-GO; 97530-GP; 97535-GO; G0515-GO; J1650